=== PATIENT | male | born 1960 | race Caucasian/White ===

== ENCOUNTER 2020-07-17 10:29 | Inpatient (IN) ==
[2020-07-17] MEDS ORDERED: DEXAMETHASONE SOD INJ 10 MG/ML VIAL IV ONE (10:49)
--- NOTE | 2020-07-17 10:54 | Emergency Department Note ---
History of Present Illness General Chief complaint: Shortness of Breath/Dyspnea Stated complaint: COVID+ SHORTNESS OF BREATH Time Seen by Provider: 07/17/20 10:34 Source: patient History of Present Illness Provider complaint: Shortness of breath Onset (ago): day(s) 2 Location: chest Severity: severe Pain Consistency: + constant Quality: + other (Difficulty breathing) Exacerbated By: + other (Any exertion) Associated symptoms: + cough; no chest pain, no fever/chills and no nausea/vomiting This is a 59-year-old male who presents with shortness of breath for the past 2 days. The patient was diagnosed with COVID-19 last week. He has had a cough and diarrhea and malaise. 2 days ago he became short of breath. He states it is worse with any exertion. He rates his shortness of breath is severe. He denies any associated chest discomfort or pain. He does not smoke. He has no loss of taste or smell. He denies any fever or abdominal pain. He denies any lung problems. Home Medications Medication Instructions Recorded Confirmed Type ascorbic acid (vitamin C) [Vitamin 1,000 mg PO QAM 07/17/20 07/17/20 History C] aspirin [Aspir-81] 162 mg PO UD 07/17/20 07/17/20 History azithromycin [Zithromax Z-Ketan] 250 mg PO UD 07/17/20 07/17/20 History cholecalciferol (vitamin D3) 10 mcg PO QAM 07/17/20 07/17/20 History [Vitamin D3] echinacea 400 mg PO QAM 07/17/20 07/17/20 History furosemide 40 mg PO DAILY PRN 07/17/20 07/17/20 History glimepiride 4 mg PO QAM 07/17/20 07/17/20 History loperamide 2 mg PO Q6H PRN 07/17/20 07/17/20 History losartan 50 mg PO DAILY 07/17/20 07/17/20 History metformin 1,000 mg PO BID 07/17/20 07/17/20 History prednisone 10 mg PO .TAPER 07/17/20 07/17/20 History tamsulosin [Flomax] 0.4 mg PO QAM 07/17/20 07/17/20 History zinc 50 mg PO QAM 07/17/20 07/17/20 History Allergies Allergy/AdvReac Type Severity Reaction Status Date / Time No Known Allergies Allergy Unverified 07/17/20 11:54 Past Med/Surg History Medical History BPH (benign prostatic hyperplasia) Diastolic dysfunction DM type 2 (diabetes mellitus, type 2) HTN (hypertension) Mild aortic valve regurgitation Mild tricuspid regurgitation Family History Father Diabetes Mother Diabetes Social History Smoking Status: Never smoker Hx Alcohol Use: Yes Alcohol type: beer Hx Substance Use: No Preferred Language: Dutch Communication Ability: Effective Padded Products Finisher Required: No Beliefs That Will Affect Care: None Current Living Situation: Spouse and Family Other Information That Helps Us Care for You: No Feels Safe at Home: Yes Safety Concerns: Feels Safe At This Time Assistive Devices: None Review of Systems See HPI for pertinent positives & negatives. and A total of 10 systems reviewed and were otherwise negative Physical Exam Vital Signs Vital Signs - 24 hr 07/17/20 10:40 07/17/20 10:44 07/17/20 11:00 Temperature Temperature Source Pulse Rate 107 H 103 H 99 H Pulse Rate from SpO2 Sensor 106 H 102 H 100 H Respiratory Rate 20 22 31 H Blood Pressure 176/89 H 156/90 H Blood Pressure Mean 123 116 Pulse Oximetry 54 L 92 Oxygen Delivery Method Room Air Nasal Cannula Oxygen Flow Rate 6 Sepsis Recent Fever Within 48 Hours Sepsis New/Unexplained Change in Mental Status Sepsis Action Taken by Nursing 07/17/20 11:01 07/17/20 11:30 07/17/20 11:31 Temperature Temperature Source Pulse Rate 98 H 98 H 102 H Pulse Rate from SpO2 Sensor 99 H 98 H 101 H Respiratory Rate 30 H 29 H 35 H Blood Pressure 156/91 H Blood Pressure Mean 114 Pulse Oximetry 93 91 93 Oxygen Delivery Method Oxygen Flow Rate 6 6 6 Sepsis Recent Fever Within 48 Hours Sepsis New/Unexplained Change in Mental Status Sepsis Action Taken by Nursing 07/17/20 11:44 07/17/20 12:00 07/17/20 12:01 Temperature 37.2 C Temperature Source Oral Pulse Rate 101 H 100 H Pulse Rate from SpO2 Sensor 101 H 103 H Respiratory Rate 32 H 32 H Blood Pressure 161/89 H Blood Pressure Mean 104 Pulse Oximetry 54 L 89 L 89 L Oxygen Delivery Method Room Air Nasal Cannula Oxygen Flow Rate 6 6 Sepsis Recent Fever Within 48 Hours No Sepsis New/Unexplained Change in Mental Status N/A Sepsis Action Taken by Nursing No Action Required 07/17/20 12:30 07/17/20 12:32 Temperature Temperature Source Pulse Rate 99 H 100 H Pulse Rate from SpO2 Sensor 99 H 102 H Respiratory Rate 25 H 36 H Blood Pressure 158/91 H Blood Pressure Mean 100 Pulse Oximetry 91 89 L Oxygen Delivery Method Nasal Cannula Nasal Cannula Oxygen Flow Rate 6 6 Sepsis Recent Fever Within 48 Hours Sepsis New/Unexplained Change in Mental Status Sepsis Action Taken by Nursing Constitutional: Vital signs reviewed. Frequently clearing his throat. No accessory muscle use. Hypoxemic. Eyes: Pupils are equal round reactive to light. Conjunctiva are noninjected. ENT: Pharynx is clear without erythema or exudate. Mucous membranes are moist. Neck supple without meningeal signs. Respiratory: Scattered rhonchi bilaterally. Breath sounds are equal bilaterally. Cardiovascular: Regular rate and rhythm. No rubs or gallops. GI: Soft, nondistended and nontender. Bowel sounds are present. Musculoskeletal: No peripheral edema. No lower extremity tenderness. Integumentary: No cyanosis. or jaundice. Neurological: The patient is awake and alert. No focal deficits. Psychiatric: Normal affect. Not anxious appearing. Course Administered Medications Discontinued Medications Dexamethasone (Dexamethasone Sod Inj 10 Mg/Ml Vial) 6 mg IV NOW ONE Stop: 07/17/20 10:50 Last Admin: 07/17/20 11:50 Dose: 6 mg Documented by: [id number] Ioversol (Optiray 320 125ml) 120 ml IV ONCE ONE Stop: 07/17/20 14:24 Last Admin: 07/17/20 14:24 Dose: 120 ml Documented by: [id number] Critical Care Time Critical Care Time: Yes Total Critical Care Time: 40 I have personally spent approximately 40 minutes of critical care time in the direct management of this patient. This includes bedside care, interpretation of diagnostic studies, and testing, discussion with consultants, patient, and family members, and other required patient management activities. These minutes are in excess of all separately billable procedures. Medical Decision Making Differential Diagnosis COVID-19, pneumonia, ARDS, pulmonary embolism, hypoxemia Medical Records Attestation: I reviewed the patient's medical records. I did perform a limited focused review of portions of the patient's old chart on the electronic medical record. The patient has had no prior visits to this hospital. Home Medications Current Medication List: was personally reviewed by me Laboratory Data Attestation: I reviewed the patient's lab results. Result diagrams: 07/17/20 11:12 07/17/20 12:34 Lab Results 07/17/20 07/17/20 07/17/20 Range/Units 11:12 11:12 11:12 WBC 11.10 H (4.8-10.8) K/uL RBC 4.84 (4.7-6.1) M/uL Hgb 15.4 (14.0-18.0) g/dL Hct 45.6 (42-52) % MCV 94.2 (80-100) fL MCH 31.8 (25-34) pg MCHC 33.8 (32-36) g/dL RDW Std Deviation 44.6 (36.4-46.3) fL RDW Coeff of Angy 12.9 (11.5-14.5) % Plt Count 354 (130-400) K/uL MPV 9.1 (7.4-10.4) fL Immature Gran % (Auto) 1.9 % Neut % (Auto) 84.7 % Lymph % (Auto) 8.9 % Hamilton % (Auto) 4.1 % Eos % (Auto) 0.1 % Baso % (Auto) 0.3 % Neut # (Auto) 9.40 H (1.4-6.5) K/uL Lymph # (Auto) 0.99 L (1.2-3.4) K/uL Hamilton # (Auto) 0.46 (0.11-0.59) K/uL Eos # (Auto) 0.01 (0-0.5) K/uL Baso # (Auto) 0.03 (0-0.2) K/uL Immature Gran # (Auto) 0.21 H (0.00-0.02) K/uL Absolute Nucleated RBC 0.08 H (0-0) K/uL Nucleated RBC % (auto) 0.7 % PT INR APTT PTT Ratio D-Dimer ABG pH (7.35-7.45) ABG pCO2 (35-46) mmHg ABG pO2 (80-95) mmHg ABG HCO3 (19-24) mmol/L ABG O2 Saturation (90-95) % ABG Base Excess (-9-1.8) mEq/L Herbie Test (Pos) Barometric Pressure mm/Hg Oxygen Given Sodium Cancelled Potassium Cancelled Chloride Cancelled Carbon Dioxide Cancelled Anion Gap Cancelled BUN Cancelled Creatinine Cancelled Est Cr Clr Drug Dosing Cancelled Est GFR ( Amer) Cancelled Est GFR (Non-Af Amer) Cancelled BUN/Creatinine Ratio Cancelled Glucose Cancelled Calcium Cancelled Ferritin (8-388) ng/ml Total Bilirubin Cancelled AST Cancelled ALT Cancelled Alkaline Phosphatase Cancelled Lactate Dehydrogenase Total Creatine Kinase (39-308) U/L Troponin I Cancelled C-Reactive Protein (0-0.29) mg/dl Total Protein Cancelled Albumin Cancelled Globulin Cancelled Albumin/Globulin Ratio Cancelled Procalcitonin Cancelled 07/17/20 07/17/20 07/17/20 Range/Units 11:12 11:12 12:34 WBC (4.8-10.8) K/uL RBC (4.7-6.1) M/uL Hgb (14.0-18.0) g/dL Hct (42-52) % MCV (80-100) fL MCH (25-34) pg MCHC (32-36) g/dL RDW Std Deviation (36.4-46.3) fL RDW Coeff of Angy (11.5-14.5) % Plt Count (130-400) K/uL MPV (7.4-10.4) fL Immature Gran % (Auto) % Neut % (Auto) % Lymph % (Auto) % Hamilton % (Auto) % Eos % (Auto) % Baso % (Auto) % Neut # (Auto) (1.4-6.5) K/uL Lymph # (Auto) (1.2-3.4) K/uL Hamilton # (Auto) (0.11-0.59) K/uL Eos # (Auto) (0-0.5) K/uL Baso # (Auto) (0-0.2) K/uL Immature Gran # (Auto) (0.00-0.02) K/uL Absolute Nucleated RBC (0-0) K/uL Nucleated RBC % (auto) % PT Cancelled 12.1 H INR Cancelled 1.2 H APTT Cancelled 25.8 PTT Ratio Cancelled 0.9 D-Dimer Cancelled 25844 H* ABG pH (7.35-7.45) ABG pCO2 (35-46) mmHg ABG pO2 (80-95) mmHg ABG HCO3 (19-24) mmol/L ABG O2 Saturation (90-95) % ABG Base Excess (-9-1.8) mEq/L Herbie Test (Pos) Barometric Pressure mm/Hg Oxygen Given Sodium Potassium Chloride Carbon Dioxide Anion Gap BUN Creatinine Est Cr Clr Drug Dosing Est GFR ( Amer) Est GFR (Non-Af Amer) BUN/Creatinine Ratio Glucose Calcium Ferritin (8-388) ng/ml Total Bilirubin AST ALT Alkaline Phosphatase Lactate Dehydrogenase Cancelled Total Creatine Kinase (39-308) U/L Troponin I C-Reactive Protein (0-0.29) mg/dl Total Protein Albumin Globulin Albumin/Globulin Ratio Procalcitonin 07/17/20 07/17/20 07/17/20 Range/Units 12:34 12:34 12:34 WBC (4.8-10.8) K/uL RBC (4.7-6.1) M/uL Hgb (14.0-18.0) g/dL Hct (42-52) % MCV (80-100) fL MCH (25-34) pg MCHC (32-36) g/dL RDW Std Deviation (36.4-46.3) fL RDW Coeff of Angy (11.5-14.5) % Plt Count (130-400) K/uL MPV (7.4-10.4) fL Immature Gran % (Auto) % Neut % (Auto) % Lymph % (Auto) % Hamilton % (Auto) % Eos % (Auto) % Baso % (Auto) % Neut # (Auto) (1.4-6.5) K/uL Lymph # (Auto) (1.2-3.4) K/uL Hamilton # (Auto) (0.11-0.59) K/uL Eos # (Auto) (0-0.5) K/uL Baso # (Auto) (0-0.2) K/uL Immature Gran # (Auto) (0.00-0.02) K/uL Absolute Nucleated RBC (0-0) K/uL Nucleated RBC % (auto) % PT INR APTT PTT Ratio D-Dimer ABG pH (7.35-7.45) ABG pCO2 (35-46) mmHg ABG pO2 (80-95) mmHg ABG HCO3 (19-24) mmol/L ABG O2 Saturation (90-95) % ABG Base Excess (-9-1.8) mEq/L Herbie Test (Pos) Barometric Pressure mm/Hg Oxygen Given Sodium 135 L Potassium 4.0 Chloride 105 Carbon Dioxide 19 L Anion Gap 12.0 H BUN 19 H Creatinine 0.60 Est Cr Clr Drug Dosing Not Reportable Est GFR ( Amer) 125.8 Est GFR (Non-Af Amer) 108.5 BUN/Creatinine Ratio 31.0 H Glucose 300 H Calcium 8.1 L Ferritin 894.7 H (8-388) ng/ml Total Bilirubin 0.4 AST 23 ALT 22 Alkaline Phosphatase 61 Lactate Dehydrogenase 601 H Total Creatine Kinase 48 (39-308) U/L Troponin I < 0.015 C-Reactive Protein 16.80 H (0-0.29) mg/dl Total Protein 7.4 Albumin 2.3 L Globulin 5.1 H Albumin/Globulin Ratio 0.4 L Procalcitonin 0.06 07/17/ Range/Units 12:34 WBC (4.8-10.8) K/uL RBC (4.7-6.1) M/uL Hgb (14.0-18.0) g/dL Hct (42-52) % MCV (80-100) fL MCH (25-34) pg MCHC (32-36) g/dL RDW Std Deviation (36.4-46.3) fL RDW Coeff of Angy (11.5-14.5) % Plt Count (130-400) K/uL MPV (7.4-10.4) fL Immature Gran % (Auto) % Neut % (Auto) % Lymph % (Auto) % Hamilton % (Auto) % Eos % (Auto) % Baso % (Auto) % Neut # (Auto) (1.4-6.5) K/uL Lymph # (Auto) (1.2-3.4) K/uL Hamilton # (Auto) (0.11-0.59) K/uL Eos # (Auto) (0-0.5) K/uL Baso # (Auto) (0-0.2) K/uL Immature Gran # (Auto) (0.00-0.02) K/uL Absolute Nucleated RBC (0-0) K/uL Nucleated RBC % (auto) % PT INR APTT PTT Ratio D-Dimer ABG pH 7.46 H (7.35-7.45) ABG pCO2 29 L (35-46) mmHg ABG pO2 56 L (80-95) mmHg ABG HCO3 20 (19-24) mmol/L ABG O2 Saturation 89.0 L (90-95) % ABG Base Excess -2.2 (-9-1.8) mEq/L Herbie Test Pos (Pos) Barometric Pressure 733.8 mm/Hg Oxygen Given 6L Sodium Potassium Chloride Carbon Dioxide Anion Gap BUN Creatinine Est Cr Clr Drug Dosing Est GFR ( Amer) Est GFR (Non-Af Amer) BUN/Creatinine Ratio Glucose Calcium Ferritin (8-388) ng/ml Total Bilirubin AST ALT Alkaline Phosphatase Lactate Dehydrogenase Total Creatine Kinase (39-308) U/L Troponin I C-Reactive Protein (0-0.29) mg/dl Total Protein Albumin Globulin Albumin/Globulin Ratio Procalcitonin Imaging Data Radiologist's Impression: XR chest 1V portable CLINICAL HISTORY: Difficulty breathing sx c/w COVID-19 COMPARISON STUDY: No previous studies for comparison. FINDINGS: The heart is the upper limits of normal in size. There are multifocal bilateral nodular airspace opacities consistent with a multifocal pneumonia. There are no significant pleural effusions. Clinical and radiographic follow-up is recommended.[ IMPRESSION: Extensive bilateral multifocal nodular airspace opacities consistent with a multifocal pneumonia. Clinical and radiographic follow-up is recommended. ACT 112: Negative or not required by law. Electronically signed by: Danielito Will M.D. 07/17/2020 11:28 AM ECG Data Attestation: I personally reviewed and interpreted this ECG as follows: Indication: + SOB/dyspnea Rate (beats per minute): 100 Rhythm: + normal sinus ECG ST segments: no ST elevation ECG Findings: + Other (Limited interpretation due to baseline motion artifact); no PVCs MDM Narrative I did evaluate the patient as noted above. The patient has COVID-19 and was diagnosed a week ago. Over the past 2 days he has been more short of breath. On examination he has some scattered rhonchi but is otherwise clear. He is very hypoxic with an O2 sat in the 60s on room air. He was placed on supplemental oxygen with a pulse ox of 93 on 6 L. He did state he felt better. He was placed in a negative pressure isolation room. IV access was established. I did place an order for continuous cardiac monitoring. The monitor showed normal sinus rhythm at a rate of 99 bpm. I did order and personally review the patient's 12-lead EKG as described above. He has no acute ischemic changes. I did order and personally reviewed the images of the patient's chest x-ray as described above. He has changes consistent with Covid pneumonia. I did treat the patient with Decadron 6 mg IV. I did order and review the patient's blood work as noted in the electronic medical record. His white blood cell count is slightly elevated. ABG shows hypoxemia. He was placed on high flow nasal cannula. Glucose is elevated as well. I did discuss case with the hospitalist and supportive employment case manager. The patient's D-dimer came back over 30,000. The inpatient team ordered a CT angiogram which demonstrated multiple pulmonary emboli. Impression & Plan Respiratory failure, Pulmonary emboli, Pneumonia due to 2019 novel coronavirus, Acute hyperglycemia Discharge Plan Visit Data Chief Complaint: Shortness of Breath/Dyspnea Stated Complaint: COVID+ SHORTNESS OF BREATH ED Provider: Ortiz Israel Discharge Problem: Respiratory failure, Pulmonary emboli, Pneumonia due to 2019 novel coronavirus, Acute hyperglycemia Patient Disposition: Admitted As Inpatient Discharge Instructions Interventions: ED Discharge Assessment Last Done: 07/17/20 14:05
--- NOTE | 2020-07-17 11:29 | XRay Report ---
XR chest 1V portable CLINICAL HISTORY: Difficulty breathing sx c/w COVID-19 COMPARISON STUDY: No previous studies for comparison. FINDINGS: The heart is the upper limits of normal in size. There are multifocal bilateral nodular air space opacities consistent with a multifocal pneumonia. There are no significant pleural effusions. C linical and radiographic follow-up is recommended.[ IMPRESSION: Extensive bilateral multifocal nodular airspace opacities consistent with a multifocal pn eumonia. Clinical and radiographic follow-up is recommended. ACT 112: Negative or not required by law. Electronically signed by: Danielito Will M.D. 07/17/2020 11:28 AM
[2020-07-17 11:45] LABS: Basophils # (auto) 0.03 K/uL (0-0.2); Basophils % (auto) 0.3 %; Eosinophils # (auto) 0.01 K/uL (0-0.5); Eosinophils % (auto) 0.1 %; Hematocrit (blood only) 45.6 % (42-52); Hemoglobin 15.4 g/dL (14.0-18.0); Immature Granulocytes # (auto) 0.21 K/uL (0.00-0.02); Immature Granulocytes % (auto) 1.9 %; Lymphocytes # (auto) 0.99 K/uL (1.2-3.4); Lymphocytes % (auto) 8.9 %; Mean Corpuscular Hemoglobin 31.8 pg (25-34); Mean Corpuscular Hgb Conc 33.8 g/dL (32-36); Mean Corpuscular Volume 94.2 fL (80-100); Mean Platelet Volume 9.1 fL (7.4-10.4); Monocytes # (auto) 0.46 K/uL (0.11-0.59); Monocytes % (auto) 4.1 %; Neutrophils % (auto) 84.7 %; Nucleated RBC # (auto) 0.08 K/uL (0-0); Nucleated RBC % (auto) 0.7 %; Platelet Count 354 K/uL (130-400); RDW Coefficient of Variation 12.9 % (11.5-14.5); RDW Standard Deviation 44.6 fL (36.4-46.3); Red Blood Count 4.84 M/uL (4.7-6.1)
[2020-07-17 12:51] LABS: Allen Test Pos (Pos); Base Excess ABG -2.2 mEq/L (-9-1.8); HCO3 ABG 20 mmol/L (19-24); PCO2 ABG 29 mmHg (35-46); PO2 ABG 56 mmHg (80-95); pH ABG 7.46 (7.35-7.45)
[2020-07-17 13:07] LABS: Alanine Aminotransferase 22 U/L (12-78); Albumin Level 2.3 gm/dl (3.4-5.0); Aspartate Aminotransferase 23 U/L (15-37); Blood Urea Nitrogen 19 mg/dl (7-18); Calcium 8.1 mg/dl (8.5-10.1); Carbon Dioxide 19 mmol/L (21-32); Chloride 105 mmol/L (98-107); Est GFR (African American) 125.8; Est GFR (Non-African American) 108.5; Glucose 300 mg/dl (70-99); Sodium 135 mmol/L (136-145)
[2020-07-17 13:08] LABS: INR 1.2 (0.9-1.1); Partial Thromboplastin Ratio 0.9; Partial Thromboplastin Time 25.8 Seconds (21.0-31.0); Prothrombin Time 12.1 Seconds (9.0-12.0)
[2020-07-17 13:12] LABS: Albumin Globulin Ratio 0.4 (0.9-2); Alkaline Phosphatase 61 U/L (45-117); Bilirubin,Total 0.4 mg/dl (0.2-1); Creatine Kinase 48 U/L (39-308); Ferritin 894.7 ng/ml (8-388); Globulin 5.1 gm/dl (2.5-4.0); Total Protein 7.4 gm/dl (6.4-8.2); Troponin I < 0.015 ng/ml (0-0.045)
[2020-07-17 13:16] LABS: D Dimer 30300 ug/L FEU (0-500)
--- NOTE | 2020-07-17 13:54 | History & Physical Report ---
Date of Service July 17, 2020 Assessment & Plan (1) Pneumonia due to COVID-19 virus: (2) Acute respiratory failure with hypoxia: -Admit to telemetry -Patient presenting from home with reports of worsening shortness of breath x 9 days. Diagnosed COVID-19 on 07/13 -In the ED, saturating 54% on room air, currently requiring 6 L of oxygen via nasal cannula to maintain saturation 93% -CXR shows multifocal pneumonia -IV dexamethasone, IV remdesivir -Patient completed course of azithromycin as an outpatient, will start empiric p.o. doxycycline and IV ceftriaxone. Noted normal procalcitonin 0.06 -Follow blood cultures -D-dimer 30,000 -CTA chest, BL LE Dopplers (3) Prolonged QT interval: -QTC 528 -? Due to recent use of p.o. azithromycin -K+ 4.0, check Mg+ -Avoid QTC prolonging agents -Daily EKG (4) Diastolic dysfunction: -Echo 2016: Grade 1 diastolic dysfunction -Patient has some mild edema on exam, will give Lasix 20mg IV (5) DM type 2 (diabetes mellitus, type 2): -Hgb A1c 10.4 10/2019 -Hold oral agents, utilize Lantus and NovoLog per protocol while hospitalized -Given uncontrolled A1c and use of IV steroids, glycemic pharmacy consulted (6) HTN (hypertension): -BP controlled, continue losartan (7) DVT prophylaxis: -SQ Lovenox History of Present Illness Chief Complaint: Shortness of breath Primary Care Provider: Dimitri Lu MD 59-year-old male with PMH DM type II, HTN, diastolic dysfunction, and other problems to below who presents to the ED for evaluation of shortness of breath. Patient tested positive for COVID-19 on 07/13. He was prescribed tapering dose of prednisone and Z-Ketan. Patient reports progressive worsening shortness of breath. He had shortness of breath with minimal exertion this morning. He reports a nonproductive cough. Patient had diarrhea at the beginning of his illness, he reports that has now resolved. Appetite has been poor at times. Denies nausea, vomiting, abdominal pain. No fevers or chills. Denies chest pain and palpitations. No lightheadedness, dizziness, diaphoresis, syncopal events. No urinary symptoms. In the ED, patient was saturating 54% on room air, currently requiring 6 L of oxygen via nasal cannula to maintain saturation of 93%. CXR shows multifocal pneumonia. Patient was given dexamethasone 6 mg IV. Allergies Allergy/AdvReac Type Severity Reaction Status Date / Time No Known Allergies Allergy Unverified 07/17/20 11:54 Home Medications Medication Instructions Recorded Confirmed Type ascorbic acid (vitamin C) [Vitamin 1,000 mg PO QAM 07/17/20 07/17/20 History C] aspirin [Aspir-81] 162 mg PO UD 07/17/20 07/17/20 History azithromycin [Zithromax Z-Ketan] 250 mg PO UD 07/17/20 07/17/20 History cholecalciferol (vitamin D3) 10 mcg PO QAM 07/17/20 07/17/20 History [Vitamin D3] echinacea 400 mg PO QAM 07/17/20 07/17/20 History furosemide 40 mg PO DAILY PRN 07/17/20 07/17/20 History glimepiride 4 mg PO QAM 07/17/20 07/17/20 History loperamide 2 mg PO Q6H PRN 07/17/20 07/17/20 History losartan 50 mg PO DAILY 07/17/20 07/17/20 History metformin 1,000 mg PO BID 07/17/20 07/17/20 History prednisone 10 mg PO .TAPER 07/17/20 07/17/20 History tamsulosin [Flomax] 0.4 mg PO QAM 07/17/20 07/17/20 History zinc 50 mg PO QAM 07/17/20 07/17/20 History Past Med/Surg History Medical History BPH (benign prostatic hyperplasia) Diastolic dysfunction DM type 2 (diabetes mellitus, type 2) HTN (hypertension) Mild aortic valve regurgitation Mild tricuspid regurgitation Family History Father Diabetes Mother Diabetes Social History Smoking Status: Never smoker Hx Alcohol Use: No Feels Safe at Home: Yes Review of Systems Review of Systems: ROS per HPI, all other systems reviewed and negative Physical Exam Constitutional: WD/WN, vitals as above + obese; no acute distress Eyes: PERRL, conjunctivae normal, anicteric sclerae ENMT: external ear and nose normal, oropharynx normal Respiratory: normal respiratory effort; no respiratory distress Auscultation: + crackles (Faint, right mid and lower lung díaz) Cardiovascular: Rate/Rhythm: regular rate and regular rhythm Vessels: normal peripheral pulses Extremities: + edema (Trace edema BLE) Gastrointestinal (Abdomen): normal bowel sounds, soft, nontender, no hepatosplenomegaly Musculoskeletal: no cyanosis or clubbing, extremities motor strength 5/5 Skin: no rashes, warm and dry Neurologic: PERRL, EOMI, accommodation nl, no face palsy, no dysarthria Psychiatric: A+Ox3, euthymic affect Results & Data Results & Data ([facility]) Vital Signs (Past 12 Hours) Vital Signs Temp Pulse Resp BP Pulse Ox 07/17/20 13:31 144/86 H 93 07/17/20 13:30 90 07/17/20 13:00 88 L 07/17/20 12:32 100 H 36 H 158/91 H 89 L 07/17/20 12:30 99 H 25 H 91 07/17/20 12:01 100 H 32 H 89 L 07/17/20 12:00 101 H 32 H 161/89 H 89 L 07/17/20 11:44 37.2 C 54 L 07/17/20 11:31 102 H 35 H 93 07/17/20 11:30 98 H 29 H 156/91 H 91 07/17/20 11:01 98 H 30 H 93 07/17/20 11:00 99 H 31 H 156/90 H 92 07/17/20 10:44 103 H 22 07/17/20 10:40 107 H 20 176/89 H 54 L Laboratory Results Short CBC 07/17/20 Range/Units 11:12 WBC 11.10 H (4.8-10.8) K/uL Hgb 15.4 (14.0-18.0) g/dL Hct 45.6 (42-52) % Plt Count 354 (130-400) K/uL BMP 07/17/20 07/17/20 11:12 12:34 Sodium Cancelled 135 L Potassium Cancelled 4.0 Chloride Cancelled 105 Carbon Dioxide Cancelled 19 L BUN Cancelled 19 H Creatinine Cancelled 0.60 Glucose Cancelled 300 H Calcium Cancelled 8.1 L Cardiac Enzymes 07/17/20 07/17/20 Range/Units 11:12 12:34 Total Creatine Kinase 48 (39-308) U/L Troponin I Cancelled < 0.015 Liver Function 07/17/20 07/17/20 Range/Units 11:12 12:34 Total Bilirubin Cancelled 0.4 AST Cancelled 23 ALT Cancelled 22 Alkaline Phosphatase Cancelled 61 Albumin Cancelled 2.3 L Diagnostic Findings CXR IMPRESSION: Extensive bilateral multifocal nodular airspace opacities consistent with a multifocal pneumonia. Clinical and radiographic follow-up is recommended. Code Status & VTE Plan VTE Prophylaxis Plan VTE Prophylaxis will be ordered: Yes Supervising Physician Co-Signing Physician Notes Patient is a 59-year-old man with history of diabetes mellitus, hypertension, diastolic dysfunction and other medical problems presents with history of worsening shortness of breath with minimal exertion associated with nonproductive cough. Also states having diarrhea few days ago which currently resolved. He was tested positive for Covid 4 days ago. Currently on prednisone and Z-Ketan. Please review HPI for complete details of presentation. He denies any chest pain, nausea, vomiting, dizziness, abdominal pain currently. He was found to be hypoxic at 54% on room air while in ED. D-dimer is elevated at 30,000, chest x-ray suggestive of extensive bilateral nodular airspace opacities consistent with multifocal pneumonia. Normal procalcitonin. Mild metabolic acidosis noted on labs. On exam patient is obese, no apparent distress, normocephalic atraumatic, urine [place], lungs are clear to auscultation, normal breath sounds, S1-S2, no murmur, trace pedal edema, abdomen soft, nontender, normal bowel sounds, alert, awake, oriented, no focal neurologic deficits. Patient is admitted for management of acute respiratory failure with hypoxia secondary to multifocal Covid pneumonia. Will start on remdesivir, dexamethasone, empiric antibiotics with doxycycline and Rocephin. Given elevated D-dimer, will check CTA and venous Doppler. Continue supplemental support with oxygen, albuterol as needed. Consider pulmonology evaluation if necessary. Will consider stool studies if recurrence of diarrhea. Currently patient not interested in cortisone plasma transfusion, provided information for the same. Agree with avoiding QTC prolonging meds given prolonged QTC at 528. Started on insulin therapy for diabetes management while hospitalized. I personally reviewed the record. Patient is interviewed and examined at bedside. Patient's care is coordinated with Zuly Bhand[facility] [employer]. Please refer to the documentation above for details of patient's presentation and for discussion of other issues.
[2020-07-17] MEDS ORDERED: OPTIRAY 320 125ml IV ONE (14:23)
--- NOTE | 2020-07-17 14:39 | CT Scan Report ---
CT ANGIOGRAM OF THE CHEST CLINICAL HISTORY: Dyspnea. Covid. COMPARISON STUDY: Chest x-ray dated 07/17/2020. TECHNIQUE: Following the IV administration of 120 cc of Optiray 320, CT angiogram of the chest was pe rformed from the upper abdomen to the thoracic inlet utilizing the pulmonary embolus protocol. Images are reviewed in the axial, sagittal, and coronal planes. 3-D MIPS images are created and assessed. I V contrast was administered without complication. A dose lowering technique was utilized adhering to the principles of ALARA. CT DOSE: 611.92 mGycm FINDINGS: Thyroid: Imaged portions of the thyroid gland are normal in size and attenuation. Thoracic aorta: The thoracic aorta is normal in caliber and demonstrates standard 3-vessel arch anato my. No dissection is seen. Pulmonary vasculature: The pulmonary trunk is dilated, measuring 3.6 cm in transverse diameter. This suggests pulmonary artery hypertension. There are right-sided pulmonary emboli. There is thrombus wit hin the right middle and right lower lobe pulmonary arteries which extends into segmental and subsegm ental branches. Thrombus is also seen within segmental and subsegmental branches in the right upper l obe. Heart: The heart is mildly enlarged and without pericardial effusion. Lungs and pleural spaces: The trachea and central airways are clear. There is extensive groundglass c onsolidation seen throughout both lungs with associated interstitial thickening. There is a trace rig ht pleural effusion. A large calcified granuloma is seen in the right middle lobe. Additional smaller calcific granulomas are observed. Mediastinum: There are numerous subcentimeter mediastinal lymph nodes. Kylah: Mildly enlarged hilar lymph nodes measure up to 11 mm in short axis. Axillae: There is no axillary lymphadenopathy. Upper abdomen: The liver is enlarged and severely steatotic. A small hiatal hernia is noted. There ar e calcified hepatic and splenic granulomas. Skeletal structures: No lytic or blastic bony lesions are seen. IMPRESSION: 1. Fairly extensive right-sided pulmonary emboli as above. 2. Extensive multifocal groundglass consolidation is above. The appearance is typical for pneumonia a nd radiographic follow-up to resolution is recommended. 3. Hepatomegaly and severe hepatic steatosis. 4. Additional findings as above. ACT 112: Negative or not required by law. Electronically signed by: Warren Jose M.D. 07/17/2020 2:37 PM
[2020-07-17] MEDS ORDERED: PNEUMOCOCCAL ADMINISTRATION CHARGE ONE (15:00)
[2020-07-17] MEDS ORDERED: ALBUTEROL HFA 8 GM INHALER INH PRN (15:00)
[2020-07-17] MEDS ORDERED: INFLUENZA VIRUS QUAD VACCINE 0.5 ML SYR IM ONE (15:00)
[2020-07-17] MEDS ORDERED: ACETAMINOPHEN 325 MG TAB PO PRN (15:00)
[2020-07-17] MEDS ORDERED: PNEUMOCOCCAL POLYSACCHARIDES 25 MCG/0.5 ML VIAL/SYR IM ONE (15:00)
[2020-07-17] MEDS ORDERED: FUROSEMIDE 40 MG/4 ML VIAL IV STA ×2 (15:00→16:54)
[2020-07-17] MEDS ORDERED: ENOXAPARIN 1 MG/KG SC SCH (15:00)
[2020-07-17] MEDS ORDERED: INFLUENZA ADMINISTRATION CHARGE ONE (15:00)
[2020-07-17] MEDS ORDERED: PHARMACY GLYCEMIC MGMT CONSULT PRN (15:21)
[2020-07-17] MEDS ORDERED: ENOXAPARIN 150 MG/ML SYR SQ SCH (15:30)
[2020-07-17] MEDS ORDERED: GLUCOSE 10 TABS/TUBE PO PRN (15:45)
[2020-07-17] MEDS ORDERED: CARBOHYDRATES FOR HYPOGLYCEMIA PO PRN (15:45)
[2020-07-17] MEDS ORDERED: GLUCAGON FOR INJ 1 MG VIAL IM PRN (15:45)
[2020-07-17] MEDS ORDERED: GLUCOSE 40% GEL 15 GM TUBE PO PRN (15:45)
[2020-07-17] MEDS ORDERED: DEXTROSE 50% 50 ML SYRINGE IV PRN (15:45)
[2020-07-17] MEDS ORDERED: INSULIN HUMAN REGULAR IV BOLUS 10 UNITS in SYRINGE 0 ML IV ONE (16:00)
[2020-07-17] MEDS ORDERED: INSULIN HUMAN NPH SC ONE (16:00)
[2020-07-17] MEDS ORDERED: DOXYCYCLINE HYCLATE 100 MG CAP PO SCH (16:00)
[2020-07-17] MEDS ORDERED: REMDESIVIR 200 MG in SODIUM CHLORIDE 0.9% 210 ML IV ONE (16:00)
[2020-07-17] MEDS ORDERED: INSULIN GLARGINE SOLOSTAR 100 UNITS/ML 3 ML PEN SC ONE (16:30)
[2020-07-17 16:35] LABS: Hematocrit (blood only) 41.9 % (42-52); Hemoglobin 14.2 g/dL (14.0-18.0); Mean Corpuscular Hemoglobin 32.1 pg (25-34); Mean Corpuscular Volume 94.6 fL (80-100); Mean Platelet Volume 8.9 fL (7.4-10.4); Nucleated RBC # (auto) 0.06 K/uL (0-0); Nucleated RBC % (auto) 0.7 %; Platelet Count 309 K/uL (130-400); RDW Coefficient of Variation 13.1 % (11.5-14.5); RDW Standard Deviation 45.4 fL (36.4-46.3); Red Blood Count 4.43 M/uL (4.7-6.1); White Blood Count 8.51 K/uL (4.8-10.8)
[2020-07-17 16:49] LABS: INR 1.1 (0.9-1.1); Partial Thromboplastin Ratio 0.9; Partial Thromboplastin Time 26.5 Seconds (21.0-31.0)
[2020-07-17] MEDS: SODIUM CHLORIDE 0.9% 10ML FLUSH IV SCH (16:49)
[2020-07-17 16:58] LABS: Mean Corpuscular Hgb Conc 33.9 g/dL (32-36)
[2020-07-17] MEDS ORDERED: cefTRIAXone SODIUM 2,000 MG in DEXTROSE 5% 50 ML IV SCH (17:00)
[2020-07-17 17:04] LABS: Basophils # (auto) 0.02 K/uL (0-0.2); Basophils % (auto) 0.2 %; Immature Granulocytes # (auto) 0.13 K/uL (0.00-0.02); Immature Granulocytes % (auto) 1.5 %; Lymphocytes # (auto) 0.92 K/uL (1.2-3.4); Lymphocytes % (auto) 10.8 %; Monocytes % (auto) 2.4 %; Neutrophils # (auto) 7.24 K/uL (1.4-6.5); Neutrophils % (auto) 85.1 %; Polychromasia 1+
--- NOTE | 2020-07-17 17:47 | Critical Care Consultation ---
Date of Consultation July 17, 2020 Assessment & Plan (1) Acute respiratory failure with hypoxia: (2) Pneumonia due to COVID-19 virus: (3) Pulmonary emboli: Impression: 59-year-old male with COVID-19 pneumonia and acute PE with progressive hypoxemic respiratory failure. Since being admitted to the hospital the patient is transition from 6 L nasal cannula to heated high flow and is cu rrently on 70% with 35 L/min. Despite this he states he feels relatively good. He is not hypotensive and not tachycardic. It is unclear how much of his hypoxemia is related to the PE and how much could be related to COVID-19 pneumonia. He was initiated on dexamethasone and remdesivir and just received a subcutaneous injection of Lovenox 1 jonathon per ke. Recommendations: 1. Acute PE: I had a long discussion with the patient regarding options at this point time. The PE certainly could be contributing to his hypoxemic respiratory failure and given the fact that he is clinically worsening with progressive oxygen requirements, it seems reasonable to be very aggressive in treating his PE. We discussed thrombolysis with its inherent risk of bleeding (about 5%) in an effort to try and improve his oxygenation. He is not hemodynamically unstable so does not meet criteria from that standpoint however I think it does warrant trying to improve his oxygenation index given the fact that he is trending in the wrong direction. Will use the 50 mg dose rather than the traditional 100 mg in an effort to try and decrease bleeding. Will consult pharmacy to determine timing of TPA given that he is just received a systemic bolus of Lovenox. Post chemical thrombolytic's orders will be ordered. Discussed with ICU nurse at the bedside. Will need to initiate heparin dosed based on 10 a levels once TPA infusion is completed 2. COVID-19 pneumonia: Continue remdesivir and dexamethasone per protocol. 3. Hypoxemic respiratory failure: Continue supplemental oxygen titrated to keep saturations at or above 85 %. Would consider self pronating if the patient's oxygenation index should fail to improve. Could also consider BiPAP. Hopefully the patient can avoid intubation mechanical ventilation. History of Present Illness Attending Physician: Jac Macedo MD History of Present Illness Asked by hospitalist to evaluate this patient with hypoxemic respiratory failure due to COVID-19 pneumonia as well as acute pulmonary embolism. History is obtained from discussion with the patient as well as review of the electronic medical record. The patient is a 59-year-old morbidly obese male with comorbid conditions including diabetes hypertension diastolic dysfunction who presented to the emergency room today with shortness of breath. He was tested for COVID-19 on July 13 and found to be positive. For some reason he was prescribed prednisone and azithromycin in the outpatient setting despite the fact the prednisone is only indicated to be used in patients with moderate to severe disease and hypoxemia. The patient had progressive shortness of breath with a nonproductive cough and was brought to the emergency room where he was found to be hypoxemic in the 50s. He was placed on 6 L of oxygen via nasal cannula with initial improvement in his oxygen saturations. A D-dimer was markedly elevated and he had a CT scan performed which revealed right-sided thromboembolic disease. The patient is never been hypotensive and denies any syncope or pr esyncope. Allergies Allergy/AdvReac Type Severity Reaction Status Date / Time No Known Allergies Allergy Unverified 07/17/20 11:54 Home Medications Medication Instructions Recorded Confirmed Type ascorbic acid (vitamin C) [Vitamin 1,000 mg PO QAM 07/17/20 07/17/20 History C] aspirin [Aspir-81] 162 mg PO UD 07/17/20 07/17/20 History azithromycin [Zithromax Z-Ketan] 250 mg PO UD 07/17/20 07/17/20 History cholecalciferol (vitamin D3) 10 mcg PO QAM 07/17/20 07/17/20 History [Vitamin D3] echinacea 400 mg PO QAM 07/17/20 07/17/20 History furosemide 40 mg PO DAILY PRN 07/17/20 07/17/20 History glimepiride 4 mg PO QAM 07/17/20 07/17/20 History loperamide 2 mg PO Q6H PRN 07/17/20 07/17/20 History losartan 50 mg PO DAILY 07/17/20 07/17/20 History metformin 1,000 mg PO BID 07/17/20 07/17/20 History prednisone 10 mg PO .TAPER 07/17/20 07/17/20 History tamsulosin [Flomax] 0.4 mg PO QAM 07/17/20 07/17/20 History zinc 50 mg PO QAM 07/17/20 07/17/20 History Patient History Medical History BPH (benign prostatic hyperplasia) Diastolic dysfunction DM type 2 (diabetes mellitus, type 2) HTN (hypertension) Mild aortic valve regurgitation Mild tricuspid regurgitation Family History Father Diabetes Mother Diabetes Social History Smoking Status: Never smoker Hx Alcohol Use: Yes Alcohol type: beer Hx Substance Use: No Preferred Language: Luxembourgish Communication Ability: 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 I have no changes Physical Exam Constitutional: WD/WN, vitals as above + obese; no acute distress Eyes: PERRL, conjunctivae normal, anicteric sclerae ENMT: external ear and nose normal, oropharynx normal Respiratory: normal respiratory effort; no respiratory distress Auscultation: + crackles (Faint, right mid and lower lung díaz) Cardiovascular: Rate/Rhythm: regular rate and regular rhythm Vessels: normal peripheral pulses Extremities: + edema (Trace edema BLE) Gastrointestinal (Abdomen): normal bowel sounds, soft, nontender, no hepatosplenomegaly Musculoskeletal: no cyanosis or clubbing, extremities motor strength 5/5 Skin: no rashes, warm and dry Neurologic: PERRL, EOMI, accommodation nl, no face palsy, no dysarthria Psychiatric: A+Ox3, euthymic affect Results & Data Results & Data ([facility]) Vital Signs (Past 12 Hours) Vital Signs Temp Pulse Pulse Resp BP BP Pulse Ox 07/17/20 15:49 84 28 H 93 07/17/20 15:15 07/17/20 14:51 100 H 30 H 172/101 H 69 L 07/17/20 13:31 144/86 H 93 07/17/20 13:30 90 07/17/20 13:00 88 L 07/17/20 12:32 100 H 36 H 158/91 H 89 L 07/17/20 12:30 99 H 25 H 91 07/17/20 12:01 100 H 32 H 89 L 07/17/20 12:00 101 H 32 H 161/89 H 89 L 07/17/20 11:44 37.2 C 54 L 07/17/20 11:31 102 H 35 H 93 07/17/20 11:30 98 H 29 H 156/91 H 91 07/17/20 11:01 98 H 30 H 93 07/17/20 11:00 99 H 31 H 156/90 H 92 07/17/20 10:44 103 H 22 07/17/20 10:40 107 H 20 176/89 H 54 L Pulse Ox 07/17/20 15:49 07/17/20 15:15 88 L 07/17/20 14:51 07/17/20 13:31 07/17/20 13:30 07/17/20 13:00 07/17/20 12:32 07/17/20 12:30 07/17/20 12:01 07/17/20 12:00 07/17/20 11:44 07/17/20 11:31 07/17/20 11:30 07/17/20 11:01 07/17/20 11:00 07/17/20 10:44 07/17/20 10:40 Laboratory Results 07/17/20 16:15 07/17/20 12:34 Troponin was normal INR 1.1 PTT 26 Blood gas showed a pH 746 with a PCO2 of 29 and a PO2 of only 56 on supplemental oxygen Ferritin of 894 LDH of 601 C-reactive protein 16.8 Procalcitonin 0[address] angiogram was independently reviewed Coding Level of Care Code Critical Care 1st 30-74 mins Diagnoses Acute respiratory failure with hypoxia J96.01 Pneumonia due to COVID-19 virus U07.1; J12.89 Pulmonary emboli I26.99 Acute cor pulmonale presence: unspecified Chronicity: acute Pulmonary embolism type: unspecified Time Spent (min) 50 (1) Pulmonary emboli Acute cor pulmonale presence: unspecified Chronicity: acute Pulmonary embolism type: unspecified Qualified Code(s): I26.99 - Other pulmonary embolism without acute cor pulmonale
[2020-07-17] MEDS: INSULIN ASPART 100 UNITS/ML 3 ML PEN SC SCH ×3 (18:07→23:43)
[2020-07-17] MEDS ORDERED: DC ALL ANTICOAGULANTS PRN (18:52)
[2020-07-17 19:47] LABS: Hematocrit (blood only) 43.1 % (42-52); Hemoglobin 14.5 g/dL (14.0-18.0); Mean Corpuscular Hemoglobin 31.7 pg (25-34); Mean Corpuscular Hgb Conc 33.6 g/dL (32-36); Mean Corpuscular Volume 94.3 fL (80-100); Mean Platelet Volume 9.2 fL (7.4-10.4); Nucleated RBC # (auto) 0.11 K/uL (0-0); Nucleated RBC % (auto) 1.2 %; Platelet Count 312 K/uL (130-400); RDW Coefficient of Variation 13.1 % (11.5-14.5); RDW Standard Deviation 45.3 fL (36.4-46.3); Red Blood Count 4.57 M/uL (4.7-6.1); White Blood Count 8.84 K/uL (4.8-10.8)
[2020-07-17] MEDS: DOXYCYCLINE HYCLATE 100 MG CAP PO SCH (20:51)
[2020-07-17] MEDS ORDERED: ALBUT/IPRATROP 3MG/0.5MG NEB 3 ML VIAL NEB PRN (22:32)
[2020-07-18 00:26] LABS: INR 1.2 (0.9-1.1); Prothrombin Time 12.2 Seconds (9.0-12.0)
[2020-07-18 04:35] LABS: iSTAT Allen Test Pass; iSTAT Art Bld Gas pCO2 Correct 32 mmHg (35-46); iSTAT Art Bld Gas pH Corrected 7.461 (7.35-7.45); iSTAT Arterial Blood Gas HCO3 23 meg/L (19-24); iSTAT Arterial Blood Gas pCO2 32 mmHg (35-46); iSTAT Arterial Blood Gas pH 7.46 (7.35-7.45); iSTAT Arterial Blood Gas pO2 80 mmHg (80-95); iSTAT Arterial Blood Gas pO2 C 80; iSTAT Carbon Dioxide 24 mmol/L (24-31); iSTAT FiO2 80 %; iSTAT Hematocrit 40 % (42-52); iSTAT Hemoglobin 13.6 g/dl (14.0-18.0); iSTAT Potassium 3.6 mmol/L (3.3-5.0); iSTAT Site L Radial; iSTAT Sodium 138 mmol/L (135-144)
[2020-07-18] MEDS: INSULIN ASPART 100 UNITS/ML 3 ML PEN SC SCH ×5 (04:45→21:48)
[2020-07-18 04:55] LABS: Hematocrit (blood only) 42.8 % (42-52); Hemoglobin 14.5 g/dL (14.0-18.0); Mean Corpuscular Hemoglobin 31.7 pg (25-34); Mean Corpuscular Hgb Conc 33.9 g/dL (32-36); Mean Corpuscular Volume 93.7 fL (80-100); Mean Platelet Volume 9.1 fL (7.4-10.4); Nucleated RBC # (auto) 0.06 K/uL (0-0); Nucleated RBC % (auto) 0.6 %; Platelet Count 316 K/uL (130-400); RDW Coefficient of Variation 13.1 % (11.5-14.5); RDW Standard Deviation 44.7 fL (36.4-46.3); Red Blood Count 4.57 M/uL (4.7-6.1); White Blood Count 9.89 K/uL (4.8-10.8)
[2020-07-18 05:13] LABS: Albumin Level 2.2 gm/dl (3.4-5.0); Calcium 7.7 mg/dl (8.5-10.1); Creatinine Clr Calc Pharmacy 148.4 ml/min; Est GFR (African American) 117.4; Est GFR (Non-African American) 101.3; Magnesium 2.5 mg/dl (1.8-2.4); Potassium 3.9 mmol/L (3.5-5.1)
[2020-07-18 05:16] LABS: Albumin Globulin Ratio 0.4 (0.9-2); Bilirubin,Total 0.3 mg/dl (0.2-1); Phosphorus 3.1 mg/dl (2.5-4.9); Total Protein 7.2 gm/dl (6.4-8.2)
[2020-07-18 05:58] LABS: Estimated Average Glucose 318 mg/dl; Hemoglobin A1C 12.7 % (4.5-5.6)
--- NOTE | 2020-07-18 06:04 | Electrocardiogram Report ---
Test Reason : Blood Pressure : / mmHG Vent. Rate : 100 BPM Atrial Rate : 100 BPM P-R Int : 168 ms QRS Dur : 074 ms QT Int : 376 ms P-R-T Axes : 016 005 046 degrees QTc Int : 485 ms Normal sinus rhythm Possible Left atrial enlargement Nonspecific T wave abnormality Prolonged QT Abnormal ECG No previous ECGs available Confirmed by Crispin Erickson ([id number]) on 07/18/2020 6:03:55 AM Referred By: Confirmed By:Crispin Erickson
--- NOTE | 2020-07-18 07:42 | Hospitalist Progress Note ---
Date of Service July 18, 2020 Assessment & Plan (1) Pneumonia due to COVID-19 virus: (2) Acute respiratory failure with hypoxia: PE -Patient presenting from home with reports of worsening shortness of breath x 9 days. Diagnosed COVID-19 on 07/13 -In the ED, saturating 54% on room air, currently requiring 6 L of oxygen via nasal cannula to maintain saturation 93% -CXR shows multifocal pneumonia -IV dexamethasone, IV remdesivir -Patient completed course of azithromycin as an outpatient, will start empiric p.o. doxycycline and IV ceftriaxone. Noted normal procalcitonin 0.06 -Follow blood cultures -D-dimer 30,000 -CTA chest, BL LE Dopplers -CTA confirms sign. PE - pt was given TPA, pulmonary medicine consulted, pt observed in ICU -currently on HF NC (3) Prolonged QT interval: -QTC 528 -? Due to recent use of p.o. azithromycin -K+ 4.0, check Mg+ -Avoid QTC prolonging agents -Daily EKG (4) Diastolic dysfunction: -Echo 2016: Grade 1 diastolic dysfunction -Patient has some mild edema on exam, received Lasix 20mg IV on admission (5) DM type 2 (diabetes mellitus, type 2): -Hgb A1c 10.4 10/2019 -Hold oral agents, utilize Lantus and NovoLog per protocol while hospitalized -Given uncontrolled A1c and use of IV steroids, glycemic pharmacy consulted -ems educator consulted as well -Discussed starting insulin dc, pt in agreement (6) HTN (hypertension): -BP controlled, continue losartan (7) DVT prophylaxis: - pt treated for PE Admission and Anticipated Discharge Date Admission Date: July 17, 2020 Subjective Pt is seen in follow up of covid infection and PE s/p TPA, uncontrolled diabetes. He is laying on his left side, on HF NC, not in distress. He is able to answer questions w/o much difficulty, he is alert and oriented. Also discussed a need of insulin on dc. Review of Systems Review of Systems: All systems reviewed & are unremarkable except as noted in HPI & below Constitutional: no fever and no chills Respiratory: + cough and + dyspnea Cardiovascular: no chest pain and no palpitations Gastrointestinal: no abdominal pain, no nausea and no vomiting Physical Exam Physical Exam: Constitutional: WD/WN, vitals as above + obese; no acute distress but on HF NC Eyes: PERRL, EOMI, conjunctivae normal, anicteric sclerae ENMT: external ear and nose normal, oropharynx normal Respiratory: normal respiratory effort; no respiratory distress Auscultation: + crackles (Faint, right mid and lower lung díaz) Cardiovascular: Rate/Rhythm: regular rate and regular rhythm Vessels: normal peripheral pulses Extremities: + edema (Trace edema BLE) Gastrointestinal (Abdomen): normal bowel sounds, soft, nontender, no hepatosplenomegaly Musculoskeletal: no cyanosis or clubbing, extremities motor strength 5/5 Skin: no rashes, warm and dry Neurologic: PERRL, EOMI, no face palsy, no dysarthria Psychiatric: A+Ox3, euthymic affect Results & Data Results & Data ([facility]) Vital Signs (Past 12 Hours) Vital Signs Temp Pulse Pulse Resp BP Pulse Ox 07/18/20 06:02 77 23 150/84 H 93 07/18/20 05:02 78 23 127/57 L 93 07/18/20 04:06 61 24 97 07/18/20 04:00 64 23 146/66 H 97 07/18/20 03:18 37.1 C 07/18/20 03:17 73 25 H 140/82 93 07/18/20 02:01 81 25 H 120/81 91 07/18/20 01:00 76 20 149/96 H 91 07/18/20 00:14 85 07/18/20 00:00 80 25 H 154/105 H 93 07/17/20 23:48 37.1 C 07/17/20 23:00 85 27 H 144/95 H 94 07/17/20 22:25 80 28 H 92 07/17/20 22:00 83 22 156/100 H 92 07/17/20 21:00 86 29 H 155/102 H 88 L 07/17/20 20:10 37.3 C 07/17/20 20:09 92 H 26 H 88 L 07/17/20 20:00 90 161/96 H 87 L 07/17/20 19:48 90 159/99 H 91 Laboratory Results 07/18/20 07/18/20 07/18/20 Range/Units 07:07 06:49 04:32 WBC (4.8-10.8) K/uL RBC (4.7-6.1) M/uL Hgb (14.0-18.0) g/dL POC Hgb (14.0-18.0) g/dl Hct (42-52) % POC Hct (42-52) % MCV (80-100) fL MCH (25-34) pg MCHC (32-36) g/dL RDW Std Deviation (36.4-46.3) fL RDW Coeff of Angy (11.5-14.5) % Plt Count (130-400) K/uL MPV (7.4-10.4) fL Immature Gran % (Auto) % Neut % (Auto) % Lymph % (Auto) % [place] % (Auto) % Eos % (Auto) % Baso % (Auto) % Neut # (Auto) (1.4-6.5) K/uL Lymph # (Auto) (1.2-3.4) K/uL [place] # (Auto) (0.11-0.59) K/uL Eos # (Auto) (0-0.5) K/uL Baso # (Auto) (0-0.2) K/uL Immature Gran # (Auto) (0.00-0.02) K/uL Absolute Nucleated RBC (0-0) K/uL Nucleated RBC % (auto) % Polychromasia PT INR APTT PTT Ratio D-Dimer Heparin Anti-Xa, LM Wt Pending 0.49 (< 0.10) IU/ML Sample Site POC pH (7.35-7.45) POC pCO2 (35-46) mmHg POC pO2 (80-95) mmHg POC HCO3 (19-24) jonathon/L POC Total CO2 (24-31) mmol/L POC Base Excess (-9-1.8) jonathon/L ABG pH (7.35-7.45) ABG pH (Temp Correct) (7.35-7.45) ABG pCO2 (35-46) mmHg ABG pCO2 (Temp Corrct (35-46) mmHg ABG pO2 (80-95) mmHg POC ABG pO2 at Pt Temp ABG HCO3 (19-24) mmol/L POC ABG O2 Sat (90-95) % ABG O2 Saturation (90-95) % ABG Base Excess (-9-1.8) mEq/L Herbie Test (Pos) Barometric Pressure mm/Hg Oxygen Given O2 Delivery Device POC O2 Rate POC FiO2 % IPAP POC Sodium (135-144) mmol/L Sodium POC Potassium (3.3-5.0) mmol/L Potassium Chloride Carbon Dioxide Anion Gap BUN Creatinine Est Cr Clr Drug Dosing Est GFR ( Amer) Est GFR (Non-Af Amer) BUN/Creatinine Ratio Glucose POC Glucose 132 H (70-99) mg/dl Estimat Average Glucose mg/dl Hemoglobin A1c (4.5-5.6) % Calcium Phosphorus (2.5-4.9) mg/dl Magnesium (1.8-2.4) mg/dl Ferritin (8-388) ng/ml Total Bilirubin AST ALT Alkaline Phosphatase Lactate Dehydrogenase Total Creatine Kinase (39-308) U/L Troponin I C-Reactive Protein (0-0.29) mg/dl Total Protein Albumin Globulin Albumin/Globulin Ratio Procalcitonin Nasal Screen MRSA (PCR) (Negative) Blood Type Antibody Screen 07/18/20 07/18/20 07/18/20 Range/Units 04:32 04:32 04:32 WBC 9.89 (4.8-10.8) K/uL RBC 4.57 L (4.7-6.1) M/uL Hgb 14.5 (14.0-18.0) g/dL POC Hgb (14.0-18.0) g/dl Hct 42.8 (42-52) % POC Hct (42-52) % MCV 93.7 (80-100) fL MCH 31.7 (25-34) pg MCHC 33.9 (32-36) g/dL RDW Std Deviation 44.7 (36.4-46.3) fL RDW Coeff of Angy 13.1 (11.5-14.5) % Plt Count 316 (130-400) K/uL MPV 9.1 (7.4-10.4) fL Immature Gran % (Auto) % Neut % (Auto) % Lymph % (Auto) % [place] % (Auto) % Eos % (Auto) % Baso % (Auto) % Neut # (Auto) (1.4-6.5) K/uL Lymph # (Auto) (1.2-3.4) K/uL [place] # (Auto) (0.11-0.59) K/uL Eos # (Auto) (0-0.5) K/uL Baso # (Auto) (0-0.2) K/uL Immature Gran # (Auto) (0.00-0.02) K/uL Absolute Nucleated RBC 0.06 H (0-0) K/uL Nucleated RBC % (auto) 0.6 % Polychromasia PT INR APTT PTT Ratio D-Dimer Heparin Anti-Xa, LM Wt (< 0.10) IU/ML Sample Site POC pH (7.35-7.45) POC pCO2 (35-46) mmHg POC pO2 (80-95) mmHg POC HCO3 (19-24) jonathon/L POC Total CO2 (24-31) mmol/L POC Base Excess (-9-1.8) jonathon/L ABG pH (7.35-7.45) ABG pH (Temp Correct) (7.35-7.45) ABG pCO2 (35-46) mmHg ABG pCO2 (Temp Corrct (35-46) mmHg ABG pO2 (80-95) mmHg POC ABG pO2 at Pt Temp ABG HCO3 (19-24) mmol/L POC ABG O2 Sat (90-95) % ABG O2 Saturation (90-95) % ABG Base Excess (-9-1.8) mEq/L Herbie Test (Pos) Barometric Pressure mm/Hg Oxygen Given O2 Delivery Device POC O2 Rate POC FiO2 % IPAP POC Sodium (135-144) mmol/L Sodium 138 POC Potassium (3.3-5.0) mmol/L Potassium 3.9 Chloride 104 Carbon Dioxide 28 Anion Gap 6.0 BUN 23 H Creatinine 0.71 Est Cr Clr Drug Dosing 148.4 Est GFR ( Amer) 117.4 Est GFR (Non-Af Amer) 101.3 BUN/Creatinine Ratio 32.0 H Glucose 121 H POC Glucose (70-99) mg/dl Estimat Average Glucose 318 mg/dl Hemoglobin A1c 12.7 H (4.5-5.6) % Calcium 7.7 L Phosphorus 3.1 (2.5-4.9) mg/dl Magnesium 2.5 H (1.8-2.4) mg/dl Ferritin (8-388) ng/ml Total Bilirubin 0.3 AST 20 ALT 21 Alkaline Phosphatase 56 Lactate Dehydrogenase Total Creatine Kinase (39-308) U/L Troponin I C-Reactive Protein (0-0.29) mg/dl Total Protein 7.2 Albumin 2.2 L Globulin 5.0 H Albumin/Globulin Ratio 0.4 L Procalcitonin Nasal Screen MRSA (PCR) (Negative) Blood Type Antibody Screen 07/18/20 07/18/20 07/18/20 Range/Units 04:20 03:54 01:29 WBC (4.8-10.8) K/uL RBC (4.7-6.1) M/uL Hgb (14.0-18.0) g/dL POC Hgb 13.6 L (14.0-18.0) g/dl Hct (42-52) % POC Hct 40 L (42-52) % MCV (80-100) fL MCH (25-34) pg MCHC (32-36) g/dL RDW Std Deviation (36.4-46.3) fL RDW Coeff of Angy (11.5-14.5) % Plt Count (130-400) K/uL MPV (7.4-10.4) fL Immature Gran % (Auto) % Neut % (Auto) % Lymph % (Auto) % [place] % (Auto) % Eos % (Auto) % Baso % (Auto) % Neut # (Auto) (1.4-6.5) K/uL Lymph # (Auto) (1.2-3.4) K/uL [place] # (Auto) (0.11-0.59) K/uL Eos # (Auto) (0-0.5) K/uL Baso # (Auto) (0-0.2) K/uL Immature Gran # (Auto) (0.00-0.02) K/uL Absolute Nucleated RBC (0-0) K/uL Nucleated RBC % (auto) % Polychromasia PT INR APTT PTT Ratio D-Dimer Heparin Anti-Xa, LM Wt 0.76 (< 0.10) IU/ML Sample Site L Radial POC pH 7.46 H (7.35-7.45) POC pCO2 32 L (35-46) mmHg POC pO2 80 (80-95) mmHg POC HCO3 23 (19-24) jonathon/L POC Total CO2 24 (24-31) mmol/L POC Base Excess -1.0 (-9-1.8) jonathon/L ABG pH (7.35-7.45) ABG pH (Temp Correct) 7.461 H (7.35-7.45) ABG pCO2 (35-46) mmHg ABG pCO2 (Temp Corrct 32 L (35-46) mmHg ABG pO2 (80-95) mmHg POC ABG pO2 at Pt Temp 80 ABG HCO3 (19-24) mmol/L POC ABG O2 Sat 97.0 H (90-95) % ABG O2 Saturation (90-95) % ABG Base Excess (-9-1.8) mEq/L Herbie Test Pass (Pos) Barometric Pressure mm/Hg Oxygen Given O2 Delivery Device BIPAP POC O2 Rate 12 POC FiO2 80 % IPAP 12 POC Sodium 138 (135-144) mmol/L Sodium POC Potassium 3.6 (3.3-5.0) mmol/L Potassium Chloride Carbon Dioxide Anion Gap BUN Creatinine Est Cr Clr Drug Dosing Est GFR ( Amer) Est GFR (Non-Af Amer) BUN/Creatinine Ratio Glucose POC Glucose 125 H (70-99) mg/dl Estimat Average Glucose mg/dl Hemoglobin A1c (4.5-5.6) % Calcium Phosphorus (2.5-4.9) mg/dl Magnesium (1.8-2.4) mg/dl Ferritin (8-388) ng/ml Total Bilirubin AST ALT Alkaline Phosphatase Lactate Dehydrogenase Total Creatine Kinase (39-308) U/L Troponin I C-Reactive Protein (0-0.29) mg/dl Total Protein Albumin Globulin Albumin/Globulin Ratio Procalcitonin Nasal Screen MRSA (PCR) (Negative) Blood Type Antibody Screen 07/17/20 07/17/20 07/17/20 Range/Units 23:41 23:34 20:46 WBC (4.8-10.8) K/uL RBC (4.7-6.1) M/uL Hgb (14.0-18.0) g/dL POC Hgb (14.0-18.0) g/dl Hct (42-52) % POC Hct (42-52) % MCV (80-100) fL MCH (25-34) pg MCHC (32-36) g/dL RDW Std Deviation (36.4-46.3) fL RDW Coeff of Angy (11.5-14.5) % Plt Count (130-400) K/uL MPV (7.4-10.4) fL Immature Gran % (Auto) % Neut % (Auto) % Lymph % (Auto) % [place] % (Auto) % Eos % (Auto) % Baso % (Auto) % Neut # (Auto) (1.4-6.5) K/uL Lymph # (Auto) (1.2-3.4) K/uL [place] # (Auto) (0.11-0.59) K/uL Eos # (Auto) (0-0.5) K/uL Baso # (Auto) (0-0.2) K/uL Immature Gran # (Auto) (0.00-0.02) K/uL Absolute Nucleated RBC (0-0) K/uL Nucleated RBC % (auto) % Polychromasia PT 12.2 H INR 1.2 H APTT PTT Ratio D-Dimer Heparin Anti-Xa, LM Wt 0.78 (< 0.10) IU/ML Sample Site POC pH (7.35-7.45) POC pCO2 (35-46) mmHg POC pO2 (80-95) mmHg POC HCO3 (19-24) jonathon/L POC Total CO2 (24-31) mmol/L POC Base Excess (-9-1.8) jonathon/L ABG pH (7.35-7.45) ABG pH (Temp Correct) (7.35-7.45) ABG pCO2 (35-46) mmHg ABG pCO2 (Temp Corrct (35-46) mmHg ABG pO2 (80-95) mmHg POC ABG pO2 at Pt Temp ABG HCO3 (19-24) mmol/L POC ABG O2 Sat (90-95) % ABG O2 Saturation (90-95) % ABG Base Excess (-9-1.8) mEq/L Herbie Test (Pos) Barometric Pressure mm/Hg Oxygen Given O2 Delivery Device POC O2 Rate POC FiO2 % IPAP POC Sodium (135-144) mmol/L Sodium POC Potassium (3.3-5.0) mmol/L Potassium Chloride Carbon Dioxide Anion Gap BUN Creatinine Est Cr Clr Drug Dosing Est GFR ( Amer) Est GFR (Non-Af Amer) BUN/Creatinine Ratio Glucose POC Glucose 217 H 281 H (70-99) mg/dl Estimat Average Glucose mg/dl Hemoglobin A1c (4.5-5.6) % Calcium Phosphorus (2.5-4.9) mg/dl Magnesium (1.8-2.4) mg/dl Ferritin (8-388) ng/ml Total Bilirubin AST ALT Alkaline Phosphatase Lactate Dehydrogenase Total Creatine Kinase (39-308) U/L Troponin I C-Reactive Protein (0-0.29) mg/dl Total Protein Albumin Globulin Albumin/Globulin Ratio Procalcitonin Nasal Screen MRSA (PCR) (Negative) Blood Type Antibody Screen 07/17/20 07/17/20 07/17/20 Range/Units 20:42 18:11 18:06 WBC 8.84 (4.8-10.8) K/uL RBC 4.57 L (4.7-6.1) M/uL Hgb 14.5 (14.0-18.0) g/dL POC Hgb (14.0-18.0) g/dl Hct 43.1 (42-52) % POC Hct (42-52) % MCV 94.3 (80-100) fL MCH 31.7 (25-34) pg MCHC 33.6 (32-36) g/dL RDW Std Deviation 45.3 (36.4-46.3) fL RDW Coeff of Angy 13.1 (11.5-14.5) % Plt Count 312 (130-400) K/uL MPV 9.2 (7.4-10.4) fL Immature Gran % (Auto) % Neut % (Auto) % Lymph % (Auto) % [place] % (Auto) % Eos % (Auto) % Baso % (Auto) % Neut # (Auto) (1.4-6.5) K/uL Lymph # (Auto) (1.2-3.4) K/uL [place] # (Auto) (0.11-0.59) K/uL Eos # (Auto) (0-0.5) K/uL Baso # (Auto) (0-0.2) K/uL Immature Gran # (Auto) (0.00-0.02) K/uL Absolute Nucleated RBC 0.11 H (0-0) K/uL Nucleated RBC % (auto) 1.2 % Polychromasia PT INR APTT PTT Ratio D-Dimer Heparin Anti-Xa, LM Wt (< 0.10) IU/ML Sample Site POC pH (7.35-7.45) POC pCO2 (35-46) mmHg POC pO2 (80-95) mmHg POC HCO3 (19-24) jonathon/L POC Total CO2 (24-31) mmol/L POC Base Excess (-9-1.8) jonathon/L ABG pH (7.35-7.45) ABG pH (Temp Correct) (7.35-7.45) ABG pCO2 (35-46) mmHg ABG pCO2 (Temp Corrct (35-46) mmHg ABG pO2 (80-95) mmHg POC ABG pO2 at Pt Temp ABG HCO3 (19-24) mmol/L POC ABG O2 Sat (90-95) % ABG O2 Saturation (90-95) % ABG Base Excess (-9-1.8) mEq/L Herbie Test (Pos) Barometric Pressure mm/Hg Oxygen Given O2 Delivery Device POC O2 Rate POC FiO2 % IPAP POC Sodium (135-144) mmol/L Sodium POC Potassium (3.3-5.0) mmol/L Potassium Chloride Carbon Dioxide Anion Gap BUN Creatinine Est Cr Clr Drug Dosing Est GFR ( Amer) Est GFR (Non-Af Amer) BUN/Creatinine Ratio Glucose POC Glucose (70-99) mg/dl Estimat Average Glucose mg/dl Hemoglobin A1c (4.5-5.6) % Calcium Phosphorus (2.5-4.9) mg/dl Magnesium (1.8-2.4) mg/dl Ferritin (8-388) ng/ml Total Bilirubin AST ALT Alkaline Phosphatase Lactate Dehydrogenase Total Creatine Kinase (39-308) U/L Troponin I C-Reactive Protein (0-0.29) mg/dl Total Protein Albumin Globulin Albumin/Globulin Ratio Procalcitonin Nasal Screen MRSA (PCR) Negative (Negative) Blood Type A Positive Antibody Screen NEGATIVE 07/17/20 07/17/20 07/17/20 Range/Units 16:46 16:15 16:15 WBC (4.8-10.8) K/uL RBC (4.7-6.1) M/uL Hgb (14.0-18.0) g/dL POC Hgb (14.0-18.0) g/dl Hct (42-52) % POC Hct (42-52) % MCV (80-100) fL MCH (25-34) pg MCHC (32-36) g/dL RDW Std Deviation (36.4-46.3) fL RDW Coeff of Angy (11.5-14.5) % Plt Count (130-400) K/uL MPV (7.4-10.4) fL Immature Gran % (Auto) % Neut % (Auto) % Lymph % (Auto) % [place] % (Auto) % Eos % (Auto) % Baso % (Auto) % Neut # (Auto) (1.4-6.5) K/uL Lymph # (Auto) (1.2-3.4) K/uL [place] # (Auto) (0.11-0.59) K/uL Eos # (Auto) (0-0.5) K/uL Baso # (Auto) (0-0.2) K/uL Immature Gran # (Auto) (0.00-0.02) K/uL Absolute Nucleated RBC (0-0) K/uL Nucleated RBC % (auto) % Polychromasia PT 12.0 INR 1.1 APTT 26.5 PTT Ratio 0.9 D-Dimer Heparin Anti-Xa, LM Wt < 0.10 (< 0.10) IU/ML Sample Site POC pH (7.35-7.45) POC pCO2 (35-46) mmHg POC pO2 (80-95) mmHg POC HCO3 (19-24) jonathon/L POC Total CO2 (24-31) mmol/L POC Base Excess (-9-1.8) jonathon/L ABG pH (7.35-7.45) ABG pH (Temp Correct) (7.35-7.45) ABG pCO2 (35-46) mmHg ABG pCO2 (Temp Corrct (35-46) mmHg ABG pO2 (80-95) mmHg POC ABG pO2 at Pt Temp ABG HCO3 (19-24) mmol/L POC ABG O2 Sat (90-95) % ABG O2 Saturation (90-95) % ABG Base Excess (-9-1.8) mEq/L Herbie Test (Pos) Barometric Pressure mm/Hg Oxygen Given O2 Delivery Device POC O2 Rate POC FiO2 % IPAP POC Sodium (135-144) mmol/L Sodium POC Potassium (3.3-5.0) mmol/L Potassium Chloride Carbon Dioxide Anion Gap BUN Creatinine Est Cr Clr Drug Dosing Est GFR ( Amer) Est GFR (Non-Af Amer) BUN/Creatinine Ratio Glucose POC Glucose 315 H* (70-99) mg/dl Estimat Average Glucose mg/dl Hemoglobin A1c (4.5-5.6) % Calcium Phosphorus (2.5-4.9) mg/dl Magnesium (1.8-2.4) mg/dl Ferritin (8-388) ng/ml Total Bilirubin AST ALT Alkaline Phosphatase Lactate Dehydrogenase Total Creatine Kinase (39-308) U/L Troponin I C-Reactive Protein (0-0.29) mg/dl Total Protein Albumin Globulin Albumin/Globulin Ratio Procalcitonin Nasal Screen MRSA (PCR) (Negative) Blood Type Antibody Screen 07/17/20 07/17/20 07/17/20 Range/Units 16:15 15:19 15:07 WBC 8.51 (4.8-10.8) K/uL RBC 4.43 L (4.7-6.1) M/uL Hgb 14.2 (14.0-18.0) g/dL POC Hgb (14.0-18.0) g/dl Hct 41.9 L (42-52) % POC Hct (42-52) % MCV 94.6 (80-100) fL MCH 32.1 (25-34) pg MCHC 33.9 (32-36) g/dL RDW Std Deviation 45.4 (36.4-46.3) fL RDW Coeff of Angy 13.1 (11.5-14.5) % Plt Count 309 (130-400) K/uL MPV 8.9 (7.4-10.4) fL Immature Gran % (Auto) 1.5 % Neut % (Auto) 85.1 % Lymph % (Auto) 10.8 % [place] % (Auto) 2.4 % Eos % (Auto) 0.0 % Baso % (Auto) 0.2 % Neut # (Auto) 7.24 H (1.4-6.5) K/uL Lymph # (Auto) 0.92 L (1.2-3.4) K/uL [place] # (Auto) 0.20 (0.11-0.59) K/uL Eos # (Auto) 0.00 (0-0.5) K/uL Baso # (Auto) 0.02 (0-0.2) K/uL Immature Gran # (Auto) 0.13 H (0.00-0.02) K/uL Absolute Nucleated RBC 0.06 H (0-0) K/uL Nucleated RBC % (auto) 0.7 % Polychromasia 1+ PT INR APTT PTT Ratio D-Dimer Heparin Anti-Xa, LM Wt (< 0.10) IU/ML Sample Site POC pH (7.35-7.45) POC pCO2 (35-46) mmHg POC pO2 (80-95) mmHg POC HCO3 (19-24) jonathon/L POC Total CO2 (24-31) mmol/L POC Base Excess (-9-1.8) jonathon/L ABG pH (7.35-7.45) ABG pH (Temp Correct) (7.35-7.45) ABG pCO2 (35-46) mmHg ABG pCO2 (Temp Corrct (35-46) mmHg ABG pO2 (80-95) mmHg POC ABG pO2 at Pt Temp ABG HCO3 (19-24) mmol/L POC ABG O2 Sat (90-95) % ABG O2 Saturation (90-95) % ABG Base Excess (-9-1.8) mEq/L Herbie Test (Pos) Barometric Pressure mm/Hg Oxygen Given O2 Delivery Device POC O2 Rate POC FiO2 % IPAP POC Sodium (135-144) mmol/L Sodium POC Potassium (3.3-5.0) mmol/L Potassium Chloride Carbon Dioxide Anion Gap BUN Creatinine Est Cr Clr Drug Dosing Est GFR ( Amer) Est GFR (Non-Af Amer) BUN/Creatinine Ratio Glucose POC Glucose 322 H* (70-99) mg/dl Estimat Average Glucose mg/dl Hemoglobin A1c (4.5-5.6) % Calcium Phosphorus (2.5-4.9) mg/dl Magnesium 2.5 H (1.8-2.4) mg/dl Ferritin (8-388) ng/ml Total Bilirubin AST ALT Alkaline Phosphatase Lactate Dehydrogenase Total Creatine Kinase (39-308) U/L Troponin I C-Reactive Protein (0-0.29) mg/dl Total Protein Albumin Globulin Albumin/Globulin Ratio Procalcitonin Nasal Screen MRSA (PCR) (Negative) Blood Type Antibody Screen 07/17/20 07/17/20 07/17/20 Range/Units 12:34 12:34 12:34 WBC (4.8-10.8) K/uL RBC (4.7-6.1) M/uL Hgb (14.0-18.0) g/dL POC Hgb (14.0-18.0) g/dl Hct (42-52) % POC Hct (42-52) % MCV (80-100) fL MCH (25-34) pg MCHC (32-36) g/dL RDW Std Deviation (36.4-46.3) fL RDW Coeff of Angy (11.5-14.5) % Plt Count (130-400) K/uL MPV (7.4-10.4) fL Immature Gran % (Auto) % Neut % (Auto) % Lymph % (Auto) % [place] % (Auto) % Eos % (Auto) % Baso % (Auto) % Neut # (Auto) (1.4-6.5) K/uL Lymph # (Auto) (1.2-3.4) K/uL [place] # (Auto) (0.11-0.59) K/uL Eos # (Auto) (0-0.5) K/uL Baso # (Auto) (0-0.2) K/uL Immature Gran # (Auto) (0.00-0.02) K/uL Absolute Nucleated RBC (0-0) K/uL Nucleated RBC % (auto) % Polychromasia PT INR APTT PTT Ratio D-Dimer Heparin Anti-Xa, LM Wt (< 0.10) IU/ML Sample Site POC pH (7.35-7.45) POC pCO2 (35-46) mmHg POC pO2 (80-95) mmHg POC HCO3 (19-24) jonathon/L POC Total CO2 (24-31) mmol/L POC Base Excess (-9-1.8) jonathon/L ABG pH 7.46 H (7.35-7.45) ABG pH (Temp Correct) (7.35-7.45) ABG pCO2 29 L (35-46) mmHg ABG pCO2 (Temp Corrct (35-46) mmHg ABG pO2 56 L (80-95) mmHg POC ABG pO2 at Pt Temp ABG HCO3 20 (19-24) mmol/L POC ABG O2 Sat (90-95) % ABG O2 Saturation 89.0 L (90-95) % ABG Base Excess -2.2 (-9-1.8) mEq/L Herbie Test Pos (Pos) Barometric Pressure 733.8 mm/Hg Oxygen Given 6L O2 Delivery Device POC O2 Rate POC FiO2 % IPAP POC Sodium (135-144) mmol/L Sodium POC Potassium (3.3-5.0) mmol/L Potassium Chloride Carbon Dioxide Anion Gap BUN Creatinine Est Cr Clr Drug Dosing Est GFR ( Amer) Est GFR (Non-Af Amer) BUN/Creatinine Ratio Glucose POC Glucose (70-99) mg/dl Estimat Average Glucose mg/dl Hemoglobin A1c (4.5-5.6) % Calcium Phosphorus (2.5-4.9) mg/dl Magnesium (1.8-2.4) mg/dl Ferritin (8-388) ng/ml Total Bilirubin AST ALT Alkaline Phosphatase Lactate Dehydrogenase 601 H Total Creatine Kinase (39-308) U/L Troponin I C-Reactive Protein (0-0.29) mg/dl Total Protein Albumin Globulin Albumin/Globulin Ratio Procalcitonin 0.06 Nasal Screen MRSA (PCR) (Negative) Blood Type Antibody Screen 07/17/20 07/17/20 07/17/20 Range/Units 12:34 12:34 11:12 WBC (4.8-10.8) K/uL RBC (4.7-6.1) M/uL Hgb (14.0-18.0) g/dL POC Hgb (14.0-18.0) g/dl Hct (42-52) % POC Hct (42-52) % MCV (80-100) fL MCH (25-34) pg MCHC (32-36) g/dL RDW Std Deviation (36.4-46.3) fL RDW Coeff of Angy (11.5-14.5) % Plt Count (130-400) K/uL MPV (7.4-10.4) fL Immature Gran % (Auto) % Neut % (Auto) % Lymph % (Auto) % [place] % (Auto) % Eos % (Auto) % Baso % (Auto) % Neut # (Auto) (1.4-6.5) K/uL Lymph # (Auto) (1.2-3.4) K/uL [place] # (Auto) (0.11-0.59) K/uL Eos # (Auto) (0-0.5) K/uL Baso # (Auto) (0-0.2) K/uL Immature Gran # (Auto) (0.00-0.02) K/uL Absolute Nucleated RBC (0-0) K/uL Nucleated RBC % (auto) % Polychromasia PT 12.1 H INR 1.2 H APTT 25.8 PTT Ratio 0.9 D-Dimer 70784 H* Heparin Anti-Xa, LM Wt (< 0.10) IU/ML Sample Site POC pH (7.35-7.45) POC pCO2 (35-46) mmHg POC pO2 (80-95) mmHg POC HCO3 (19-24) jonathon/L POC Total CO2 (24-31) mmol/L POC Base Excess (-9-1.8) jonathon/L ABG pH (7.35-7.45) ABG pH (Temp Correct) (7.35-7.45) ABG pCO2 (35-46) mmHg ABG pCO2 (Temp Corrct (35-46) mmHg ABG pO2 (80-95) mmHg POC ABG pO2 at Pt Temp ABG HCO3 (19-24) mmol/L POC ABG O2 Sat (90-95) % ABG O2 Saturation (90-95) % ABG Base Excess (-9-1.8) mEq/L Herbie Test (Pos) Barometric Pressure mm/Hg Oxygen Given O2 Delivery Device POC O2 Rate POC FiO2 % IPAP POC Sodium (135-144) mmol/L Sodium 135 L POC Potassium (3.3-5.0) mmol/L Potassium 4.0 Chloride 105 Carbon Dioxide 19 L Anion Gap 12.0 H BUN 19 H Creatinine 0.60 Est Cr Clr Drug Dosing Not Reportable Est GFR ( Amer) 125.8 Est GFR (Non-Af Amer) 108.5 BUN/Creatinine Ratio 31.0 H Glucose 300 H POC Glucose (70-99) mg/dl Estimat Average Glucose mg/dl Hemoglobin A1c (4.5-5.6) % Calcium 8.1 L Phosphorus (2.5-4.9) mg/dl Magnesium (1.8-2.4) mg/dl Ferritin 894.7 H (8-388) ng/ml Total Bilirubin 0.4 AST 23 ALT 22 Alkaline Phosphatase 61 Lactate Dehydrogenase Cancelled Total Creatine Kinase 48 (39-308) U/L Troponin I < 0.015 C-Reactive Protein 16.80 H (0-0.29) mg/dl Total Protein 7.4 Albumin 2.3 L Globulin 5.1 H Albumin/Globulin Ratio 0.4 L Procalcitonin Nasal Screen MRSA (PCR) (Negative) Blood Type Antibody Screen 07/17/20 07/17/20 07/17/20 Range/Units 11:12 11:12 11:12 WBC 11.10 H (4.8-10.8) K/uL RBC 4.84 (4.7-6.1) M/uL Hgb 15.4 (14.0-18.0) g/dL POC Hgb (14.0-18.0) g/dl Hct 45.6 (42-52) % POC Hct (42-52) % MCV 94.2 (80-100) fL MCH 31.8 (25-34) pg MCHC 33.8 (32-36) g/dL RDW Std Deviation 44.6 (36.4-46.3) fL RDW Coeff of Angy 12.9 (11.5-14.5) % Plt Count 354 (130-400) K/uL MPV 9.1 (7.4-10.4) fL Immature Gran % (Auto) 1.9 % Neut % (Auto) 84.7 % Lymph % (Auto) 8.9 % [place] % (Auto) 4.1 % Eos % (Auto) 0.1 % Baso % (Auto) 0.3 % Neut # (Auto) 9.40 H (1.4-6.5) K/uL Lymph # (Auto) 0.99 L (1.2-3.4) K/uL [place] # (Auto) 0.46 (0.11-0.59) K/uL Eos # (Auto) 0.01 (0-0.5) K/uL Baso # (Auto) 0.03 (0-0.2) K/uL Immature Gran # (Auto) 0.21 H (0.00-0.02) K/uL Absolute Nucleated RBC 0.08 H (0-0) K/uL Nucleated RBC % (auto) 0.7 % Polychromasia PT Cancelled INR Cancelled APTT Cancelled PTT Ratio Cancelled D-Dimer Cancelled Heparin Anti-Xa, LM Wt (< 0.10) IU/ML Sample Site POC pH (7.35-7.45) POC pCO2 (35-46) mmHg POC pO2 (80-95) mmHg POC HCO3 (19-24) jonathon/L POC Total CO2 (24-31) mmol/L POC Base Excess (-9-1.8) jonathon/L ABG pH (7.35-7.45) ABG pH (Temp Correct) (7.35-7.45) ABG pCO2 (35-46) mmHg ABG pCO2 (Temp Corrct (35-46) mmHg ABG pO2 (80-95) mmHg POC ABG pO2 at Pt Temp ABG HCO3 (19-24) mmol/L POC ABG O2 Sat (90-95) % ABG O2 Saturation (90-95) % ABG Base Excess (-9-1.8) mEq/L Herbie Test (Pos) Barometric Pressure mm/Hg Oxygen Given O2 Delivery Device POC O2 Rate POC FiO2 % IPAP POC Sodium (135-144) mmol/L Sodium POC Potassium (3.3-5.0) mmol/L Potassium Chloride Carbon Dioxide Anion Gap BUN Creatinine Est Cr Clr Drug Dosing Est GFR ( Amer) Est GFR (Non-Af Amer) BUN/Creatinine Ratio Glucose POC Glucose (70-99) mg/dl Estimat Average Glucose mg/dl Hemoglobin A1c (4.5-5.6) % Calcium Phosphorus (2.5-4.9) mg/dl Magnesium (1.8-2.4) mg/dl Ferritin (8-388) ng/ml Total Bilirubin AST ALT Alkaline Phosphatase Lactate Dehydrogenase Total Creatine Kinase (39-308) U/L Troponin I C-Reactive Protein (0-0.29) mg/dl Total Protein Albumin Globulin Albumin/Globulin Ratio Procalcitonin Cancelled Nasal Screen MRSA (PCR) (Negative) Blood Type Antibody Screen 07/17/20 Range/Units 11:12 WBC (4.8-10.8) K/uL RBC (4.7-6.1) M/uL Hgb (14.0-18.0) g/dL POC Hgb (14.0-18.0) g/dl Hct (42-52) % POC Hct (42-52) % MCV (80-100) fL MCH (25-34) pg MCHC (32-36) g/dL RDW Std Deviation (36.4-46.3) fL RDW Coeff of Angy (11.5-14.5) % Plt Count (130-400) K/uL MPV (7.4-10.4) fL Immature Gran % (Auto) % Neut % (Auto) % Lymph % (Auto) % [place] % (Auto) % Eos % (Auto) % Baso % (Auto) % Neut # (Auto) (1.4-6.5) K/uL Lymph # (Auto) (1.2-3.4) K/uL [place] # (Auto) (0.11-0.59) K/uL Eos # (Auto) (0-0.5) K/uL Baso # (Auto) (0-0.2) K/uL Immature Gran # (Auto) (0.00-0.02) K/uL Absolute Nucleated RBC (0-0) K/uL Nucleated RBC % (auto) % Polychromasia PT INR APTT PTT Ratio D-Dimer Heparin Anti-Xa, LM Wt (< 0.10) IU/ML Sample Site POC pH (7.35-7.45) POC pCO2 (35-46) mmHg POC pO2 (80-95) mmHg POC HCO3 (19-24) jonathon/L POC Total CO2 (24-31) mmol/L POC Base Excess (-9-1.8) jonathon/L ABG pH (7.35-7.45) ABG pH (Temp Correct) (7.35-7.45) ABG pCO2 (35-46) mmHg ABG pCO2 (Temp Corrct (35-46) mmHg ABG pO2 (80-95) mmHg POC ABG pO2 at Pt Temp ABG HCO3 (19-24) mmol/L POC ABG O2 Sat (90-95) % ABG O2 Saturation (90-95) % ABG Base Excess (-9-1.8) mEq/L Herbie Test (Pos) Barometric Pressure mm/Hg Oxygen Given O2 Delivery Device POC O2 Rate POC FiO2 % IPAP POC Sodium (135-144) mmol/L Sodium Cancelled POC Potassium (3.3-5.0) mmol/L Potassium Cancelled Chloride Cancelled Carbon Dioxide Cancelled Anion Gap Cancelled BUN Cancelled Creatinine Cancelled Est Cr Clr Drug Dosing Cancelled Est GFR ( Amer) Cancelled Est GFR (Non-Af Amer) Cancelled BUN/Creatinine Ratio Cancelled Glucose Cancelled POC Glucose (70-99) mg/dl Estimat Average Glucose mg/dl Hemoglobin A1c (4.5-5.6) % Calcium Cancelled Phosphorus (2.5-4.9) mg/dl Magnesium (1.8-2.4) mg/dl Ferritin (8-388) ng/ml Total Bilirubin Cancelled AST Cancelled ALT Cancelled Alkaline Phosphatase Cancelled Lactate Dehydrogenase Total Creatine Kinase (39-308) U/L Troponin I Cancelled C-Reactive Protein (0-0.29) mg/dl Total Protein Cancelled Albumin Cancelled Globulin Cancelled Albumin/Globulin Ratio Cancelled Procalcitonin Nasal Screen MRSA (PCR) (Negative) Blood Type Antibody Screen Medications Administered Current Inpatient Medications Acetaminophen (Acetaminophen 325 Mg Tab) 650 mg PO Q4H PRN PRN Reason: Pain or Fever Stop: 08/16/20 14:59 Albuterol (Albuterol Hfa 8 Gm Inhaler) 2 puffs INH Q4H PRN PRN Reason: shortness of breath Stop: 08/16/20 14:59 Albuterol (Albut/Ipratrop 3mg/0.5mg Neb 3 Ml Vial) 3 ml NEB Q4R PRN PRN Reason: Shortness Of Breath Or Wheezing Stop: 08/16/20 22:59 Dextrose (Dextrose 50% 50 Ml Syringe) 25 - 50 ml IV UD PRN; Protocol PRN Reason: Hypoglycemia Protocol Stop: 08/16/20 15:44 Doxycycline Hyclate (Doxycycline Hyclate 100 Mg Cap) 100 mg PO BID LONNY Stop: 07/24/20 20:59 Last Admin: 07/17/20 20:51 Dose: 100 mg Documented by: Glucagon (Glucagon For Inj 1 Mg Vial) 1 mg IM UD PRN; Protocol PRN Reason: Hypoglycemia Protocol Stop: 08/16/20 15:44 Glucose (Glucose 40% Gel 15 Gm Tube) 15 - 30 gm PO UD PRN; Protocol PRN Reason: Hypoglycemia Protocol Stop: 08/16/20 15:44 Glucose (Glucose 10 Tabs/Tube) 4 - 8 tabs PO UD PRN; Protocol PRN Reason: Hypoglycemia Protocol Stop: 08/16/20 15:44 Remdesivir 100 mg/ Sodium (Chloride) 250 mls @ 250 mls/hr IV Q24H LONNY; Protocol Stop: 07/21/20 16:59 Dexamethasone 6 mg/ Syringe 1.5 mls @ 1 mls/min IV DAILY LONNY Stop: 07/28/20 08:59 Alteplase, Recombinant 50 mg/ (EMPTY BAG) 50 mls @ 25 mls/hr IV NOW STA; Protocol Stop: 07/17/20 19:45 Insulin Aspart (Insulin Aspart 100 Units/Ml 3 Ml Pen) 0 units SC ACHS LONNY Stop: 08/16/20 16:29 Last Admin: 07/17/20 20:50 Dose: 12 units Documented by: Losartan Potassium (Losartan Potassium 50 Mg Tab) 50 mg PO DAILY LONNY Stop: 08/17/20 08:59 Miscellaneous (Carbohydrates For Hypoglycemia ) 15 - 30 gm PO UD PRN PRN Reason: Hypoglycemia Treatment Stop: 08/16/20 15:44 Miscellaneous Information (Pharmacy Glycemic Mgmt Consult) 1 ea N/A UD PRN PRN Reason: Consult Stop: 08/16/20 15:20 Miscellaneous Information (Dc All Anticoagulants ) 1 ea N/A UD PRN PRN Reason: NOTIFICATION Stop: 08/16/20 18:51 Sodium Chloride (Sodium Chloride 0.9% 10ml Flush) 30 ml IV Q24H LONNY Stop: 07/21/20 16:01 Last Admin: 07/17/20 16:49 Dose: 30 ml Documented by: Sodium Chloride (Sodium Chloride 0.9% 50 Ml Bag) 50 ml IV NOW STA Stop: 07/17/20 17:47 Tamsulosin HCl (Tamsulosin Hcl 0.4 Mg Cap) 0.4 mg PO QAM LONNY Stop: 08/17/20 08:59
--- NOTE | 2020-07-18 08:13 | XRay Report ---
XR chest 1V portable CLINICAL HISTORY: Pneumonia/respiratory failure COMPARISON STUDY: 07/17/2020 FINDINGS: The heart is enlarged. There is aortic tortuosity/ectasia. There are bilateral pulmonary ai rspace opacities stable to minimally improved.. The findings are consistent with a multifocal pneumon itis.[ IMPRESSION: Persistent bilateral pulmonary airspace opacities consistent with a multifocal pneumoniti s. The findings are stable to minimally improved. ACT 112: Negative or not required by law. Electronically signed by: Danielito Will M.D. 07/18/2020 8:12 AM
[2020-07-18] MEDS: dexAMETHasone 6 MG in SYRINGE 0 ML IV SCH (08:38)
[2020-07-18] MEDS: DOXYCYCLINE HYCLATE 100 MG CAP PO SCH ×2 (08:38→21:23)
[2020-07-18] MEDS: LOSARTAN POTASSIUM 50 MG TAB PO SCH (08:38)
[2020-07-18] MEDS: TAMSULOSIN HCL 0.4 MG CAP PO SCH (08:38)
[2020-07-18] MEDS: INSULIN HUMAN NPH SC SCH (08:42)
[2020-07-18] MEDS ORDERED: PRIMARY PLUMSET, PE LINED TUBING, 113 IN, NON-DEHP (2260-0500) IV ONE (08:44)
[2020-07-18] MEDS ORDERED: ALTEPLASE, RECOMBINANT 50 MG in EMPTY BAG 0 ML IV ONE (08:45)
[2020-07-18] MEDS ORDERED: INSULIN GLARGINE SOLOSTAR 100 UNITS/ML 3 ML PEN SC SCH ×2 (09:00→17:00)
[2020-07-18] MEDS ORDERED: SODIUM CHLORIDE 0.9% 50 ML BAG IV ONE (10:45)
[2020-07-18 13:11] LABS: Hemoglobin 14.3 g/dL (14.0-18.0); Mean Corpuscular Hemoglobin 31.5 pg (25-34); Mean Corpuscular Volume 94.7 fL (80-100); Mean Platelet Volume 9.4 fL (7.4-10.4); Nucleated RBC # (auto) 0.02 K/uL (0-0); Nucleated RBC % (auto) 0.2 %; Platelet Count 358 K/uL (130-400); RDW Coefficient of Variation 13.3 % (11.5-14.5); RDW Standard Deviation 45.7 fL (36.4-46.3); Red Blood Count 4.54 M/uL (4.7-6.1); White Blood Count 11.15 K/uL (4.8-10.8)
[2020-07-18 13:21] LABS: Mean Corpuscular Hgb Conc 33.3 g/dL (32-36)
[2020-07-18 13:30] LABS: Partial Thromboplastin Ratio 0.9; Partial Thromboplastin Time 25.3 Seconds (21.0-31.0)
[2020-07-18] MEDS ORDERED: Heparin IV Low Dose *NO* Bolus IV SCH (14:00)
--- NOTE | 2020-07-18 14:52 | Critical Care Progress Note ---
Date of Service July 18, 2020 Assessment & Plan (1) Pulmonary emboli: (2) Pneumonia due to 2019 novel coronavirus: (3) Respiratory failure: Impression: 59-year-old male admitted with COVID-19 pneumonia and hypoxemic respiratory failure with superimposed right-sided pulmonary emboli. 24-hour events: The patient had an initial pulmonary consult and was elected to proceed with thrombolysis. Unfortunately he had recently received Lovenox so the TPA had to be held until the Lovenox had worn off. He received at this morning. Anticoagulation will be resumed based on protocol. He is remained hemodynamically stable but continues to have a high oxygen requirement. Recommendations: 1. Neurologic: No current issues. Continue to follow clinically. 2. Cardiovascular: Patient is hypertensive. Continue to follow for now. Reluctant to aggressively treat blood pressure in the setting of known pulmonary thromboembolic disease. His troponin was negative. Echocardiogram has been ordered but it will not exchange specialist so would favor waiting until Covid restrictions have cleared. 3. Pulmonary: COVID-19 pneumonia: Continue remdesivir and dexamethasone. Wean oxygen as tolerated. High flow as needed to keep oxygen saturations at or above 88%. Can consider BiPAP as the patient is at risk for sleep disordered breathing given his body habitus. We discussed self pronating which I think would be beneficial for the patient if his oxygen requirement should remain high. Patient has completed TPA at 50 mg for PE in an effort to see if this improves his gas exchange. Anticoagulation with heparin will be initiated once he needs criteria. Given the fact that his PE was associated with COVID-19 pneumonia, would recommend at least 3 to 6 months of anticoagulation although 1 could make a case for indefinite anticoagulation given his morbid obesity. Incentive spirometry may be beneficial given his morbid obesity. 4. Endocrine: Glycemic control per protocol. 5. GI: Okay for the patient to eat from a pulmonary critical care perspective. He is at risk for pulmonary deterioration but appears to be stable over the last 24 hours. 6. Renal: No current issues. Continue to follow clinically. Electrolyte replacement as needed. 7. ID: See comments above regarding COVID-19 pneumonia. He was placed on doxycycline for possible atypical pneumonia which seems reasonable to complete a course. Would add Ceftin for gram-negative coverage as well. Antibiotics for 5 days would be adequate. 8. Heme-onc: No current issues. Patient is critically ill at this point time. We will continue to monitor in the ICU for 24 hours post TPA administration and see whether or not his oxygen requirement improves. Case was discussed with ICU nurse and on multidisciplinary rounds as well as with patient. A total of 47 minutes critical care time was spent in evaluation management stabilization of this patient at this point Admission and Anticipated Discharge Date Admission Date: July 17, 2020 Subjective Patient seen and examined. Discussed with critical care nurse at bedside as well as with patient. He reports that he is doing well. Shortness of breath is about the same. He used CPAP overnight. He is back to high flow oxygen this morning. No chest pain palpitations syncope or presyncope. He is currently receiving TPA for his. No bleeding complications or issues with medication administration to date Review of Systems Review of Systems: All systems reviewed & are unremarkable except as noted in HPI & below Physical Exam Constitutional: WD/WN, vitals as above + obese; no acute distress Eyes: PERRL, conjunctivae normal, anicteric sclerae ENMT: external ear and nose normal, oropharynx normal Respiratory: normal respiratory effort; no respiratory distress Auscultation: + crackles (Faint, right mid and lower lung díaz) Cardiovascular: Rate/Rhythm: regular rate and regular rhythm Vessels: normal peripheral pulses Extremities: + edema (Trace edema BLE) Gastrointestinal (Abdomen): normal bowel sounds, soft, nontender, no hepatosplenomegaly Musculoskeletal: no cyanosis or clubbing, extremities motor strength 5/5 Skin: no rashes, warm and dry Neurologic: PERRL, EOMI, accommodation nl, no face palsy, no dysarthria Psychiatric: A+Ox3, euthymic affect Results & Data Results & Data ([facility]) Vital Signs (Past 12 Hours) Vital Signs Temp Pulse Pulse Resp BP BP Pulse Ox 07/18/20 14:22 36.8 C 77 26 H 143/79 H 91 07/18/20 14:00 79 23 148/86 H 94 07/18/20 12:00 74 31 H 158/116 H 91 07/18/20 11:15 87 26 H 88 L 07/18/20 11:00 90 21 156/90 H 88 L 07/18/20 10:45 91 H 27 H 144/98 H 86 L 07/18/20 10:39 85 18 90 07/18/20 10:30 87 26 H 155/105 H 89 L 07/18/20 10:15 92 H 28 H 164/99 H 90 07/18/20 10:00 89 24 90 07/18/20 09:46 101 H 25 H 153/83 H 77 L 07/18/20 09:45 101 H 23 88 L 07/18/20 09:31 93 H 22 136/63 87 L 07/18/20 09:30 89 24 87 L 07/18/20 09:15 91 H 23 162/95 H 86 L 07/18/20 09:00 93 H 22 152/94 H 90 07/18/20 08:52 87 25 H 168/106 H 88 L 07/18/20 08:07 79 18 91 07/18/20 08:00 74 27 H 154/96 H 92 07/18/20 07:44 75 18 150/97 H 91 07/18/20 07:43 36.8 C 76 25 H 161/88 H 93 07/18/20 07:00 68 30 H 161/88 H 91 07/18/20 06:02 77 23 150/84 H 93 07/18/20 05:02 78 23 127/57 L 93 07/18/20 04:06 61 24 97 07/18/20 04:00 64 23 146/66 H 97 07/18/20 03:18 37.1 C 07/18/20 03:17 73 25 H 140/82 93 Laboratory Results 07/18/20 12:46 07/18/20 04:32 Diagnostic Findings Chest x-ray today showed stable bibasilar infiltrates Coding Level of Care Code Critical Care 1st 30-74 mins Diagnoses Pulmonary emboli I26.99 Acute cor pulmonale presence: unspecified Chronicity: acute Pulmonary embolism type: unspecified Pneumonia due to 2019 novel coronavirus U07.1; J12.89 Respiratory failure J96.01 Chronicity: acute Respiratory failure complication: hypoxia (1) Pulmonary emboli Acute cor pulmonale presence: unspecified Chronicity: acute Pulmonary embolism type: unspecified Qualified Code(s): I26.99 - Other pulmonary embolism without acute cor pulmonale (2) Respiratory failure Chronicity: acute Respiratory failure complication: hypoxia Qualified Code(s): J96.01 - Acute respiratory failure with hypoxia
--- NOTE | 2020-07-18 15:02 | Pharmacy Report ---
Pharmacy Glycemic Short Note 2 - Date of Service July 18, 2020 - Glycemic Short BSG Results (Last 24 hours): 07/17/20 07/17/20 07/17/20 15:19 16:46 20:46 Glucose POC Glucose 322 H* 315 H* 281 H 07/17/20 07/18/20 07/18/20 23:41 03:54 04:32 Glucose 121 H POC Glucose 217 H 125 H 07/18/20 07/18/20 07:07 11:13 Glucose POC Glucose 132 H 208 H OUTPATIENT ANTIDIABETIC REGIMEN: * amaryl 4mg qam * metformin 1000mg BID * A1c: 12.7% ASSESSMENT: * Patient presenting with COVID-19 pneumonia and PEs and hyperglycemia likely stress induced as well as steroid induced (was on prednisone at home) * Patient is receiving 6mg IV dexamethasone daily for COVID-19 pneumonia and did received TPA for PE's, followed by a heparin infusion. * Patient has responded well thus far utilizing 0.3 units/kg NPH to combat steroid effects and a moderate stress Lantus scalae. NovoLog was initiated aggressively and appears to be working well thus far. He is tolerating a diet. PLAN FOR INPATIENT GLYCEMIC CONTROL: * Hold outpatient oral diabetes medications * Basal insulin * Lantus 15 units SQ BID * NPH 40 units SQ qam with dexamethasone * Bolus insulin * NovoLog per scale ACHS or Q6hrs while NPO * Goal Range: Low 110 mg/dL - High 140 mg/dL * Correction Factor: 12 mg/dL/unit * Nutritional / Prandial insulin per carb ratio of 1 unit per 4 grams CHO consumed
[2020-07-18] MEDS: HEPARIN SODIUM/DEXTROSE 25,000 UNITS/500 ML BAG IV SCH (15:12)
[2020-07-18] MEDS: cefUROXime axetil 500 MG TAB PO SCH ×2 (16:48→21:23)
[2020-07-18] MEDS: REMDESIVIR 100 MG in SODIUM CHLORIDE 0.9% 230 ML IV SCH (16:49)
[2020-07-18] MEDS: SODIUM CHLORIDE 0.9% 10ML FLUSH IV SCH (16:54)
[2020-07-18 20:50] LABS: Partial Thromboplastin Time 27.6 Seconds (21.0-31.0)
[2020-07-18] MEDS ORDERED: HEPARIN IV BOLUS 4,500 UNITS in SYRINGE 0 ML IV ONE (21:30)
[2020-07-19 03:46] LABS: Partial Thromboplastin Ratio 1.3; Partial Thromboplastin Time 35.1 Seconds (21.0-31.0)
[2020-07-19 03:50] LABS: Alanine Aminotransferase 19 U/L (12-78); Aspartate Aminotransferase 22 U/L (15-37)
[2020-07-19] MEDS ORDERED: HEPARIN IV BOLUS 4,000 UNITS in SYRINGE 0 ML IV ONE (04:30)
[2020-07-19 07:48] LABS: Albumin Globulin Ratio 0.5 (0.9-2); Albumin Level 2.1 gm/dl (3.4-5.0); BUN Creatinine Ratio 42.5 (10-20); Bilirubin,Total 0.3 mg/dl (0.2-1); Creatinine Clr Calc Pharmacy 172.1 ml/min; Est GFR (African American) 124.9; Est GFR (Non-African American) 107.8; Globulin 4.3 gm/dl (2.5-4.0); Potassium 3.3 mmol/L (3.5-5.1); Total Protein 6.4 gm/dl (6.4-8.2)
[2020-07-19] MEDS: TAMSULOSIN HCL 0.4 MG CAP PO SCH (08:21)
[2020-07-19] MEDS: LOSARTAN POTASSIUM 50 MG TAB PO SCH (08:21)
[2020-07-19] MEDS: DOXYCYCLINE HYCLATE 100 MG CAP PO SCH ×2 (08:21→20:27)
[2020-07-19] MEDS: cefUROXime axetil 500 MG TAB PO SCH ×2 (08:22→20:26)
[2020-07-19] MEDS: INSULIN GLARGINE SOLOSTAR 100 UNITS/ML 3 ML PEN SC SCH ×2 (08:22→20:28)
[2020-07-19] MEDS: INSULIN HUMAN NPH SC SCH (08:23)
[2020-07-19] MEDS: INSULIN ASPART 100 UNITS/ML 3 ML PEN SC SCH ×4 (08:25→20:28)
[2020-07-19] MEDS: dexAMETHasone 6 MG in SYRINGE 0 ML IV SCH (09:07)
[2020-07-19] MEDS: HEPARIN SODIUM/DEXTROSE 25,000 UNITS/500 ML BAG IV SCH (09:33)
[2020-07-19 09:54] LABS: Basophils # (auto) 0.02 K/uL (0-0.2); Basophils % (auto) 0.1 %; Eosinophils # (auto) 0.16 K/uL (0-0.5); Eosinophils % (auto) 1.2 %; Hematocrit (blood only) 41.8 % (42-52); Hemoglobin 13.9 g/dL (14.0-18.0); Immature Granulocytes # (auto) 0.24 K/uL (0.00-0.02); Immature Granulocytes % (auto) 1.8 %; Lymphocytes # (auto) 1.92 K/uL (1.2-3.4); Lymphocytes % (auto) 14.3 %; Mean Corpuscular Hemoglobin 31.2 pg (25-34); Mean Corpuscular Hgb Conc 33.3 g/dL (32-36); Mean Corpuscular Volume 93.9 fL (80-100); Mean Platelet Volume 9.2 fL (7.4-10.4); Monocytes # (auto) 0.55 K/uL (0.11-0.59); Monocytes % (auto) 4.1 %; Neutrophils # (auto) 10.56 K/uL (1.4-6.5); Neutrophils % (auto) 78.5 %; Platelet Count 334 K/uL (130-400); RDW Coefficient of Variation 13.2 % (11.5-14.5); RDW Standard Deviation 45.1 fL (36.4-46.3); Red Blood Count 4.45 M/uL (4.7-6.1); White Blood Count 13.45 K/uL (4.8-10.8)
[2020-07-19 10:13] LABS: Partial Thromboplastin Ratio 1.6
[2020-07-19 10:29] LABS: Magnesium 2.1 mg/dl (1.8-2.4); Phosphorus 3.9 mg/dl (2.5-4.9)
--- NOTE | 2020-07-19 10:53 | Critical Care Progress Note ---
Date of Service July 19, 2020 Assessment & Plan (1) Pneumonia due to 2019 novel coronavirus: (2) Respiratory failure: Impression: 59-year-old male admitted with COVID-19 pneumonia and hyp oxemic respiratory failure with superimposed right-sided pulmonary emboli. 24-hour events: Patient completed TPA infusion and is now been initiated on heparin. Continuing to monitor and dose based on PTT as 10 A levels and dosing regimens are not available at this institution. Recommendations: 1. Neurologic: No current issues. Continue to follow clinically. 2. Cardiovascular: Patient is hypertensive. Continue to follow for now. Antihypertensive regimen per primary provider. Hold echocardiogram as its not likely to acid changer currently. 3. Pulmonary: COVID-19 pneumonia: Continue remdesivir and dexamethasone. Wean oxygen as tolerated. High flow as needed to keep oxygen saturations at or above 88%. Can consider BiPAP as the patient is at risk for sleep disordered breathi ng given his body habitus. We discussed self pronating which I think would be beneficial for the patient if his oxygen requirement should remain high. Patient has completed TPA at 50 mg for PE in an effort to see if this improves his gas exchange. Continue heparin. Could transition to DOAC next 48 hours based on clinical response. given the fact that his PE was associated with COVID-19 pneumonia, would recommend at least 3 to 6 months of anticoagulation although 1 could make a case for indefinite anticoagulation given his morbid obesity. Incentive spirometry 4. Endocrine: Glycemic control per protocol. 5. GI: Okay for the patient to eat from a pulmonary critical care perspective. He is at risk for pulmonary deterioration but appears to be stable over the last 24 hours. 6. Renal: No current issues. Continue to follow clinically. Electrolyte replacement as needed. 7. ID: See comments above regarding COVID-19 pneumonia. He was placed on doxycycline for possible atypical pneumonia which seems reasonable to complete a course. Would add Ceftin for gram-negative coverage as well. Antibiotics for 5 days would be adequate. 8. Heme-onc: No current issues. Patient appears to be stable from a respiratory standpoint so we will transfer out of the ICU to telemetry status under the care of the hospitalist. Should he deteriorate, feel free to contact us for additional assistance. Will follow for an additional day or 2 for pulmonary/PE issues Admission and Anticipated Discharge Date Admission Date: July 17, 2020 Subjective . The patient completed his TPA infusion without significant issues. No bleeding complications noted Patient seen and examined. He states he is doing well. He sitting up at the bedside. Has been on high flow. He used BiPAP overnight. He is not particularly comfortable with the BiPAP. He denies any respiratory problems. No chest pain or palpitations. No significant lower extremity edema. He overall states that he feels he is doing well Review of Systems Review of Systems: Unchanged from prior Physical Exam Constitutional: WD/WN, vitals as above + obese; no acute distress Eyes: PERRL, conjunctivae normal, anicteric sclerae ENMT: external ear and nose normal, oropharynx normal Respiratory: normal respiratory effort; no respiratory distress Auscultation: + crackles (Faint, right mid and lower lung díaz) Cardiovascular: Rate/Rhythm: regular rate and regular rhythm Vessels: normal peripheral pulses Extremities: + edema (Trace edema BLE) Gastrointestinal (Abdomen): normal bowel sounds, soft, nontender, no hepatosplenomegaly Musculoskeletal: no cyanosis or clubbing, extremities motor strength 5/5 Skin: no rashes, warm and dry Neurologic: PERRL, EOMI, accommodation nl, no face palsy, no dysarthria Psychiatric: A+Ox3, euthymic affect Results & Data Results & Data ([facility]) Vital Signs (Past 12 Hours) Vital Signs Temp Pulse Pulse Pulse Resp BP BP 07/19/20 07:40 36.7 C 60 18 159/86 H 07/19/20 07:25 64 24 07/19/20 06:02 80 07/19/20 06:00 73 141/91 H 07/19/20 05:59 76 145/85 H 07/19/20 05:00 67 07/19/20 04:01 71 98/65 L 07/19/20 04:00 71 07/19/20 03:44 36.7 C 67 67 18 110/76 110/76 07/19/20 03:01 65 99/68 L 07/19/20 03:00 68 07/19/20 02:02 66 27 H 07/19/20 02:00 64 127/61 07/19/20 01:02 92 H 07/19/20 01:01 77 101/54 L 07/19/20 01:00 82 07/19/20 00:00 36.7 C 74 147/77 H 07/18/20 23:42 36.5 C 78 78 18 124/65 124/65 07/18/20 23:01 73 139/89 07/18/20 23:00 70 Pulse Ox 07/19/20 07:40 98 07/19/20 07:25 96 07/19/20 06:02 95 07/19/20 06:00 95 07/19/20 05:59 97 07/19/20 05:00 100 07/19/20 04:01 93 07/19/20 04:00 93 07/19/20 03:44 94 07/19/20 03:01 94 07/19/20 03:00 93 07/19/20 02:02 98 07/19/20 02:00 97 07/19/20 01:02 98 07/19/20 01:01 99 07/19/20 01:00 97 07/19/20 00:00 94 07/18/20 23:42 93 07/18/20 23:01 92 07/18/20 23:00 92 Laboratory Results 07/19/20 09:29 07/19/20 05:54 Diagnostic Findings No new films Coding Level of Care Code 66270 Subseq Hosp Care Lvl 3 Diagnoses Pneumonia due to 2019 novel coronavirus U07.1; J12.89 Respiratory failure J96.01 Chronicity: acute Respiratory failure complication: hypoxia (1) Respiratory failure Chronicity: acute Respiratory failure complication: hypoxia Qualified Code(s): J96.01 - Acute respiratory failure with hypoxia
--- NOTE | 2020-07-19 12:28 | Pharmacy Report ---
Pharmacy Glycemic Short Note 2 - Date of Service July 19, 2020 - Glycemic Short BSG Results (Last 24 hours): 07/18/20 07/18/20 07/19/20 16:19 21:37 05:54 Glucose 97 POC Glucose 226 H 164 H 07/19/20 07/19/20 07:19 11:31 Glucose POC Glucose 107 H 208 H OUTPATIENT ANTIDIABETIC REGIMEN: * amaryl 4mg qam * metformin 1000mg BID * A1c: 12.7% ASSESSMENT: 07/19 * Fasting BSG 97-107 this AM with 35 units Lantus + 40 units NPH administered in last 24 hrs. Will titrate back Lantus dose somewhat as FBS less than 100 this AM and we have not yet achieved steady state with this therapy. There may be room to increase NPH dose due to post-prandial hyperglycemia observed during the day. * Post-prandial BSGs elevated yesterday 2 of 3, likely due to wearing off of peak dexamethasone effect later in the day. Will increase NPH dose slightly. 07/18 * Patient presenting with COVID-19 pneumonia and PEs and hyperglycemia likely stress induced as well as steroid induced (was on prednisone at home) * Patient is receiving 6mg IV dexamethasone daily for COVID-19 pneumonia and did received TPA for PE's, followed by a heparin infusion. * Patient has responded well thus far utilizing 0.3 units/kg NPH to combat steroid effects and a moderate stress Lantus scalae. NovoLog was initiated aggressively and appears to be working well thus far. He is tolerating a diet. PLAN FOR INPATIENT GLYCEMIC CONTROL: * Hold outpatient oral diabetes medications * Basal insulin * Lantus 15 units SQ BID * NPH 50 units SQ qam with dexamethasone * Bolus insulin * NovoLog per scale ACHS or Q6hrs while NPO * Goal Range: Low 110 mg/dL - High 140 mg/dL * Correction Factor: 10 mg/dL/unit * Nutritional / Prandial insulin per carb ratio of 1 unit per 3 grams CHO consumed
[2020-07-19] MEDS: REMDESIVIR 100 MG in SODIUM CHLORIDE 0.9% 230 ML IV SCH (15:33)
[2020-07-19] MEDS ORDERED: POTASSIUM CHLORIDE CRTAB 20 MEQ TABCR PO STA (15:47)
[2020-07-19] MEDS ORDERED: ACETAMINOPHEN 325 MG TAB PO PRN (15:48)
[2020-07-19] MEDS: SODIUM CHLORIDE 0.9% 10ML FLUSH IV SCH (17:27)
--- NOTE | 2020-07-19 17:51 | Hospitalist Progress Note ---
Date of Service July 19, 2020 Assessment & Plan (1) Acute respiratory failure with hypoxia: -secondary to COVID-19 pneumonia and acute Pulmonary embolism -Patient presenting from home to ED on 07/17/2020 with reports of worsening shortness of breath x 9 days and was previously diagnosed COVID-19 on 07/13/2020. In the ED, saturating 54% on room air -admission CTA chest: Fairly extensive right-sided pulmonary emboli, Extensive multifocal groundglass consolidation typical for pneumonia -patient is currently on high flow nasal cannula oxygen, titrate oxygen requirements as needed (2) Pulmonary emboli: -Patient has completed TPA at 50 mg for PE in an effort to see if this improves his gas exchange. Continue IV heparin -pulmonary/ICU physician recommended on 07/19/2020: Could transition to NOAC next 48 hours based on clinical response. given the fact that his PE was associated with COVID-19 pneumonia, would recommend at least 3 to 6 months of anticoagulation although one could make a case for indefinite anticoagulation given his morbid obesity. (3) DVT prophylaxis: -management with anticoagulation (4) Pneumonia due to COVID-19 virus: -Patient completed course of azithromycin as an outpatient -was empirically started on IV dexamethasone, IV remdesivir - continue -was empirically started on doxycycline and IV ceftriaxone. as per 07/19/2020 pulmonary/ICU physician that patient can continue Doxycyline and Cefitin and sugged antibiotic for 5 days would be adequate (5) Prolonged QT interval: -admission QTC 528, possibly from recent outpatient use of azithromycin -Avoid QTC prolonging agents -serum potassium 3.3 on 07/19/2020 and patient given oral potassium supplements (6) Diastolic dysfunction: -Echo 2016: Grade 1 diastolic dysfunction -Patient has some mild edema on exam, received Lasix 20mg IV on admission -pulmonary/ICU physician does not assess that echocardiogram needed at this time (7) HTN (hypertension): -continue losartan (8) DM type 2 (diabetes mellitus, type 2): Type 2 diabetes mellitus, uncontrolled -HbA1c 10.4 in October 2019, not on insulin at home, home regimen is metformin and glimepiride which have been held on this admission and substituted with insulin -HbA1c 12.7 on this admission -Given uncontrolled A1c and use of IV steroids, glycemic pharmacy consulted on this admission for insulin management -patient likely will need Insulin on discharge Admission and Anticipated Discharge Date Admission Date: July 17, 2020 Subjective Patient continues to be on high flow nasal cannula but she denies any worse sensation of dyspnea. Patient denies any other symptoms. No acute pain. No dizziness. No nausea. No vomiting. No abdominal pain. No other symptoms on review of systems Review of Systems Review of Systems: All systems reviewed & are unremarkable except as noted in Subjective Physical Exam Constitutional: comfortable Eyes: EOM intact bilaterally ENMT: external ear and nose normal, oropharynx normal Neck: normal visual inspection Respiratory: normal respiratory effort Auscultation: + crackles Gastrointestinal (Abdomen): normal bowel sounds, soft, nontender, no hepatosplenomegaly Musculoskeletal: Head/Neck/Chest: normocephalic and head atraumatic Neurologic: PERRL, EOMI, accommodation nl, no face palsy, no dysarthria Psychiatric: A+Ox3, euthymic affect Results & Data Results & Data ([facility]) Vital Signs (Past 12 Hours) Vital Signs Temp Pulse Pulse Pulse Resp BP BP 07/19/20 15:40 94 H 19 113/79 07/19/20 15:08 75 18 07/19/20 11:30 81 20 07/19/20 11:29 36.7 C 92 H 18 117/81 07/19/20 10:00 36.8 C 83 20 115/78 07/19/20 07:40 36.7 C 60 18 159/86 H 07/19/20 07:25 64 24 07/19/20 06:02 80 07/19/20 06:00 73 141/91 H 07/19/20 05:59 76 145/85 H Pulse Ox 07/19/20 15:40 92 07/19/20 15:08 89 L 07/19/20 11:30 94 07/19/20 11:29 90 07/19/20 10:00 94 07/19/20 07:40 98 07/19/20 07:25 96 07/19/20 06:02 95 07/19/20 06:00 95 07/19/20 05:59 97 (1) Pulmonary emboli Acute cor pulmonale presence: unspecified Chronicity: acute Pulmonary embolism type: unspecified Qualified Code(s): I26.99 - Other pulmonary embolism without acute cor pulmonale
[2020-07-19] MEDS ORDERED: COUGH DROP (SUGAR FREE) LOZ 24 LOZ/1 BOX BUCCAL STA (20:35)
--- NOTE | 2020-07-19 21:42 | Electrocardiogram Report ---
Test Reason : Blood Pressure : / mmHG Vent. Rate : 090 BPM Atrial Rate : 090 BPM P-R Int : 142 ms QRS Dur : 064 ms QT Int : 364 ms P-R-T Axes : 039 004 042 degrees QTc Int : 445 ms Poor data quality, interpretation may be adversely affected Normal sinus rhythm Septal infarct , age undetermined Nonspecific T wave abnormality Abnormal ECG When compared with ECG of 17-JUL-2020 11:18, Nonspecific T wave abnormality, improved in Anterolateral leads QT has shortened Confirmed by Crispin Erickson ([id number]) on 07/19/2020 9:42:05 PM Referred By: REFERRED SELF Confirmed By:Crispin Erickson
[2020-07-20] MEDS: HEPARIN SODIUM/DEXTROSE 25,000 UNITS/500 ML BAG IV SCH (02:43)
[2020-07-20 07:37] LABS: Base Excess VBG -1.8 mEq/L; Oxygen Saturation VBG 69.4 %; pH VBG 7.37 (7.36-7.41)
[2020-07-20 07:56] LABS: Partial Thromboplastin Ratio 1.8
[2020-07-20 08:58] LABS: Albumin Globulin Ratio 0.5 (0.9-2); Albumin Level 2.1 gm/dl (3.4-5.0); BUN Creatinine Ratio 37.9 (10-20); Bilirubin,Total 0.3 mg/dl (0.2-1); Calcium 7.4 mg/dl (8.5-10.1); Creatinine Clr Calc Pharmacy 178.9 ml/min; Est GFR (African American) 126.6; Est GFR (Non-African American) 109.3; Magnesium 2.2 mg/dl (1.8-2.4); Phosphorus 4.3 mg/dl (2.5-4.9); Potassium 3.5 mmol/L (3.5-5.1); Total Protein 6.1 gm/dl (6.4-8.2)
[2020-07-20] MEDS ORDERED: INSULIN HUMAN NPH SC SCH (09:00)
[2020-07-20] MEDS: INSULIN ASPART 100 UNITS/ML 3 ML PEN SC SCH ×4 (09:05→21:59)
[2020-07-20] MEDS: dexAMETHasone 6 MG in SYRINGE 0 ML IV SCH (09:07)
[2020-07-20] MEDS: INSULIN GLARGINE SOLOSTAR 100 UNITS/ML 3 ML PEN SC SCH ×2 (09:07→21:59)
[2020-07-20] MEDS: LOSARTAN POTASSIUM 50 MG TAB PO SCH (09:10)
[2020-07-20] MEDS: TAMSULOSIN HCL 0.4 MG CAP PO SCH (09:10)
[2020-07-20] MEDS: cefUROXime axetil 500 MG TAB PO SCH ×2 (09:10→21:46)
[2020-07-20] MEDS: DOXYCYCLINE HYCLATE 100 MG CAP PO SCH ×2 (09:10→21:46)
--- NOTE | 2020-07-20 11:06 | Hospitalist Progress Note ---
Date of Service July 20, 2020 Assessment & Plan (1) Acute respiratory failure with hypoxia: -secondary to COVID-19 pneumonia and acute Pulmonary embolism -Patient presenting from home to ED on 07/17/2020 with reports of worsening shortness of breath x 9 days and was previously diagnosed COVID-19 on 07/13/2020. In the ED, saturating 54% on room air -admission CTA chest: Fairly extensive right-sided pulmonary emboli, Extensive multifocal groundglass consolidation typical for pneumonia -patient is currently on high flow nasal cannula oxygen, titrate oxygen requirements as needed (2) Pulmonary emboli: -Patient has completed TPA at 50 mg for PE in an effort to see if this improves his gas exchange. Continue IV heparin -pulmonary/ICU physician recommended on 07/19/2020: Could transition to DOAC next 48 hours based on clinical response. given the fact that his PE was associated with COVID-19 pneumonia, would recommend at least 3 to 6 months of anticoagulation although one could make a case for indefinite anticoagulation given his morbid obesity. -07/20/2020: Patient continues to be on high flow nasal cannula but continues to be breathing well subjectively as per patient's report. Patient denies any other symptoms on review of systems. No acute distress. No acute pain. No problems with eating or with bowel movements and urination. Discussed with patient that the combination of COVID and pulmonary embolism likely means that patient's oxygen requirements for some unclear duration of time but at least the goal would be to get patient to simple nasal cannula oxygen levels before considering any role in hospital discharge. Also discussed with patient that based on the pulmonary recommendations to consider transition from heparin IV on 07/21/2020 to perhaps Xarelto or Apixaban or Lovenox - may need to take his large body weight into account, he is 134.4 kg and BMI of 43.8 (3) DVT prophylaxis: -management with anticoagulation (4) Pneumonia due to COVID-19 virus: -Patient completed course of azithromycin as an outpatient -was empirically started on IV dexamethasone, IV remdesivir - continue -was empirically started on doxycycline and IV ceftriaxone. as per 07/19/2020 pulmonary/ICU physician that patient can continue Doxycyline and Cefitin and sugged antibiotic for 5 days would be adequate (5) Prolonged QT interval: -admission QTC 528, possibly from recent outpatient use of azithromycin -Avoid QTC prolonging agents -serum potassium 3.3 on 07/19/2020 and patient given oral potassium supplements (6) Diastolic dysfunction: -Echo 2016: Grade 1 diastolic dysfunction -Patient has some mild edema on exam, received Lasix 20mg IV on admission -pulmonary/ICU physician does not assess that echocardiogram needed at this time (7) HTN (hypertension): -continue losartan (8) DM type 2 (diabetes mellitus, type 2): Type 2 diabetes mellitus, uncontrolled -HbA1c 10.4 in October 2019, not on insulin at home, home regimen is metformin and glimepiride which have been held on this admission and substituted with insulin -HbA1c 12.7 on this admission -Given uncontrolled A1c and use of IV steroids, glycemic pharmacy consulted on this admission for insulin management -patient likely will need Insulin on discharge Admission and Anticipated Discharge Date Admission Date: July 17, 2020 Subjective 07/20/2020: Patient continues to be on high flow nasal cannula but continues to be breathing well subjectively as per patient's report. Patient denies any other symptoms on review of systems. No acute distress. No acute pain. No problems with eating or with bowel movements and urination. Discussed with patient that the combination of COVID and pulmonary embolism likely means that patient's oxygen requirements for some unclear duration of time but at least the goal would be to get patient to simple nasal cannula oxygen levels before considering any role in hospital discharge. Also discussed with patient that based on the pulmonary recommendations to consider transition from heparin IV on 07/21/2020 to perhaps Xarelto or Apixaban or Lovenox - may need to take his large body weight into account, he is 134.4 kg and BMI of 43.8 Review of Systems Review of Systems: All systems reviewed & are unremarkable except as noted in Subjective Physical Exam Constitutional: comfortable Eyes: EOM intact bilaterally ENMT: external ear and nose normal, oropharynx normal Neck: normal visual inspection Respiratory: normal respiratory effort Gastrointestinal (Abdomen): normal bowel sounds, soft, nontender, no hepatosplenomegaly Musculoskeletal: Head/Neck/Chest: normocephalic and head atraumatic Neurologic: PERRL, EOMI, accommodation nl, no face palsy, no dysarthria Psychiatric: A+Ox3, euthymic affect Results & Data Results & Data ([facility]) Vital Signs (Past 12 Hours) Vital Signs Temp Pulse Pulse Resp BP BP Pulse Ox 07/20/20 07:27 36.5 C 72 19 113/65 95 07/20/20 07:15 69 20 94 07/20/20 03:52 36.5 C 63 18 144/88 H 96 07/20/20 03:28 68 22 91 07/20/20 00:00 77 07/19/20 23:32 70 16 95 07/19/20 23:13 36.6 C 74 18 124/89 96 (1) Pulmonary emboli Acute cor pulmonale presence: unspecified Chronicity: acute Pulmonary embolism type: unspecified Qualified Code(s): I26.99 - Other pulmonary embolism without acute cor pulmonale
--- NOTE | 2020-07-20 11:56 | Pulmonology Progress Note ---
Date of Service July 20, 2020 Assessment & Plan (1) Pneumonia due to 2019 novel coronavirus: (2) Respiratory failure: Impression: 59-year-old male admitted with COVID-19 pneumonia and hyp oxemic respiratory failure with superimposed right-sided pulmonary emboli. Patient is status post TPA administration. He remains on Decadron and remdesivir. Recommendations: 1. COVID-19 pneumonia: Continue remdesivir and dexamethasone. Wean oxygen as tolerated. High flow as needed to keep oxygen saturations at or above 88%. Can consider BiPAP as the patient is at risk for sleep disordered breathing given his body habitus. We discussed self pronating which I think would be beneficial for the patient if his oxygen requirement should remain high. 2. Hemodynamically stable PE: Patient has completed TPA at 50 mg for PE in an effort to see if this improves his gas exchange. Continue heparin. Could transition to DOAC next 24 hours based on clinical response. Given the fact that his PE was associated with COVID-19 pneumonia, would recommend at least 3 to 6 months of anticoagulation although 1 could make a case for indefinite anticoagulation given his morbid obesity. Incentive spirometry 3. High probability for sleep apnea: Continue CPAP/BiPAP at night as needed. Recommend outpatient polysomnography. 4. Patient appears relatively stable currently. Pulmonary is available to assist should the patient deteriorate. Otherwise management per the hospitalist service. Please call if we can be of assistance or if there are additional questions Chronicity: acute Respiratory failure complication: hypoxia Qualified Code(s): J96.01 - Acute respiratory failure with hypoxia Admission and Anticipated Discharge Date Admission Date: July 17, 2020 Subjective Electronic medical record reviewed. Physical exam and interview the patient deferred due to COVID-19 restrictions. Review of Systems Review of Systems: Refer to hospitalist note Physical Exam Physical Exam: Exam deferred as the patient is in Covid isolation. Per institutional protocol, refer to physical exam performed by attending physician Results & Data Results & Data ([facility]) Vital Signs (Past 12 Hours) Vital Signs Temp Pulse Pulse Resp BP BP Pulse Ox 07/20/20 11:21 92 H 18 91 07/20/20 11:17 36.5 C 85 18 114/78 93 07/20/20 07:27 36.5 C 72 19 113/65 95 07/20/20 07:15 69 20 94 07/20/20 03:52 36.5 C 63 18 144/88 H 96 07/20/20 03:28 68 22 91 07/20/20 00:00 77 Laboratory Results 07/19/20 09:29 07/20/20 07:08 Diagnostic Findings No new imaging PG Care Time/CCT Total # of Minutes Spent Total Time Spent with Patient: Total time spent is greater than 50% in coordination of care (as documented) at patient's floor/unit and/or counseling patient: Coding Level of Care Code 05882 Subseq Hosp Care Lvl 2 Diagnoses Pneumonia due to 2019 novel coronavirus U07.1; J12.89 Respiratory failure J96.01 Chronicity: acute Respiratory failure complication: hypoxia
[2020-07-20] MEDS: REMDESIVIR 100 MG in SODIUM CHLORIDE 0.9% 230 ML IV SCH (16:55)
[2020-07-20] MEDS: SODIUM CHLORIDE 0.9% 10ML FLUSH IV SCH (18:25)
[2020-07-21] MEDS: HEPARIN SODIUM/DEXTROSE 25,000 UNITS/500 ML BAG IV SCH ×2 (00:26→16:34)
[2020-07-21 07:56] LABS: INR 1.1 (0.9-1.1); Partial Thromboplastin Ratio 1.5; Partial Thromboplastin Time 42.7 Seconds (21.0-31.0); Prothrombin Time 11.5 Seconds (9.0-12.0)
[2020-07-21] MEDS: dexAMETHasone 6 MG in SYRINGE 0 ML IV SCH (08:36)
[2020-07-21] MEDS: DOXYCYCLINE HYCLATE 100 MG CAP PO SCH ×2 (08:37→21:00)
[2020-07-21] MEDS: cefUROXime axetil 500 MG TAB PO SCH ×2 (08:38→20:59)
[2020-07-21] MEDS: TAMSULOSIN HCL 0.4 MG CAP PO SCH (08:38)
[2020-07-21] MEDS: LOSARTAN POTASSIUM 50 MG TAB PO SCH (08:38)
[2020-07-21] MEDS: INSULIN ASPART 100 UNITS/ML 3 ML PEN SC SCH ×4 (08:40→21:05)
[2020-07-21] MEDS: INSULIN GLARGINE SOLOSTAR 100 UNITS/ML 3 ML PEN SC SCH ×2 (09:21→21:04)
[2020-07-21] MEDS: INSULIN HUMAN NPH SC SCH (09:21)
--- NOTE | 2020-07-21 10:03 | Pharmacy Report ---
Pharmacy Glycemic Short Note 2 - Date of Service July 21, 2020 - Glycemic Short BSG Results (Last 24 hours): 07/20/20 07/20/20 07/20/20 11:17 16:20 20:50 POC Glucose 216 H 266 H 255 H 07/21/20 07:09 POC Glucose 117 H OUTPATIENT ANTIDIABETIC REGIMEN: * amaryl 4mg qam * metformin 1000mg BID * A1c: 12.7% ASSESSMENT: 07/21: * Pt has received 168 units of SQ insulin over the past 24hrs * 20 units of basal insulin with Lantus * 98 units of bolus insulin with NovoLog * 50 units of NPH to cover steroid induced hyperglycemia from IV dexamethasone * BSGs [phone] mg/dl * All BSGs elevated with the exception of AM fasting BSG. * No change needed to Lantus. * Post-prandial BSGs elevated secondary to dexamethasone. Will increase NPH dosing and tighten CHO ratio * NPH insulin is used to counteract the hyperglycemic effect of once daily steroids. The rationale for this approach is that the pharmacodynamics profile of NPH, with a peak effect of 4-8hrs and duration of action of 12-16 hrs, mirrors the pharmacodynamics of once daily dexamethasone. NPH should be dosed at the same time that steroid is given * The dose of NPH given is dependent on the steroid dose given * For doses of prednisone 40mg/day or above NPH dose should be 0.4 units/kg; this equals ~ 50 units of NPH. Pt received 50 units yesterday; will increase to 60 units today. * NPH dosing above is given in addition to patients basal insulin needs * Typically, patients will also need rapid-acting insulin with meals 07/19 * Fasting BSG 97-107 this AM with 35 units Lantus + 40 units NPH administered in last 24 hrs. Will titrate back Lantus dose somewhat as FBS less than 100 this AM and we have not yet achieved steady state with this therapy. There may be room to increase NPH dose due to post-prandial hyperglycemia observed during the day. * Post-prandial BSGs elevated yesterday 2 of 3, likely due to wearing off of peak dexamethasone effect later in the day. Will increase NPH dose slightly. 07/18 * Patient presenting with COVID-19 pneumonia and PEs and hyperglycemia likely stress induced as well as steroid induced (was on prednisone at home) * Patient is receiving 6mg IV dexamethasone daily for COVID-19 pneumonia and did received TPA for PE's, followed by a heparin infusion. * Patient has responded well thus far utilizing 0.3 units/kg NPH to combat steroid effects and a moderate stress Lantus scalae. NovoLog was initiated aggressively and appears to be working well thus far. He is tolerating a diet. PLAN FOR INPATIENT GLYCEMIC CONTROL: * Hold outpatient oral diabetes medications * Basal insulin: no change * Lantus 10units SQ BID * Steroid induced hyperglycemia- increase dosing * NPH 60 units SQ qam with dexamethasone * Bolus insulin: tighten CR * NovoLog per scale ACHS or Q6hrs while NPO * Goal Range: Low 110 mg/dL - High 140 mg/dL * Correction Factor: 10 mg/dL/unit * Nutritional / Prandial insulin per carb ratio of 1 unit per 2 grams CHO co nsumed
--- NOTE | 2020-07-21 13:09 | Hospitalist Progress Note ---
Date of Service July 21, 2020 Assessment & Plan (1) Acute respiratory failure with hypoxia: -secondary to COVID-19 pneumonia and acute Pulmonary embolism -Patient presenting from home to ED on 07/17/2020 with reports of worsening shortness of breath x 9 days and was previously diagnosed COVID-19 on 07/13/2020. In the ED, saturating 54% on room air -admission CTA chest: Fairly extensive right-sided pulmonary emboli, Extensive multifocal groundglass consolidation typical for pneumonia -patient had been on high flow nasal cannula oxygen, titrate oxygen requirements as needed -07/21/2020 Patient examined and was being transitioned from high flow nasal cannula to oxymask 9 L/min . Patient denies acute shortness of breath. No chest pain. No nausea. No other symptoms on review of systems (2) Pulmonary emboli: -Patient has completed TPA at 50 mg for PE in an effort to see if this improves his gas exchange. Continue IV heparin -pulmonary/ICU physician recommended on 07/19/2020: Could transition to DOAC next 48 hours based on clinical response. given the fact that his PE was associated with COVID-19 pneumonia, would recommend at least 3 to 6 months of anticoagulation although one could make a case for indefinite anticoagulation given his morbid obesity. -07/21/2020: based on patient's body weights 134.4 kg and BMI of 43.8, his body size for Xarelto or Eliquis are in the browning area of efficacy although not stri ctly contraindicated when he is outpatient. At this time while in the hospital, patient agrees to trial of Lovenox 1 mg/kg q12 hours to be started at 9Pm of 07/21/2020 so that he can off the IV heparin drip. (3) DVT prophylaxis: -management with anticoagulation (4) Pneumonia due to COVID-19 virus: -Patient completed course of azithromycin as an outpatient -was empirically started on IV remdesivir (to be completed on ) and IV dexamethasone 6m daily . continue the IV dexamethasone daily for now -was empirically started on doxycycline and IV ceftriaxone. as per 07/19/2020 pulmonary/ICU physician that patient can continue Doxycyline and Cefitin and sugged antibiotic for 5 days would be adequate (5) Prolonged QT interval: -admission QTC 528, possibly from recent outpatient use of azithromycin -Avoid QTC prolonging agents -serum potassium 3.3 on 07/19/2020 and patient given oral potassium supplements (6) Diastolic dysfunction: -Echo 2016: Grade 1 diastolic dysfunction -Patient has some mild edema on exam, received Lasix 20mg IV on admission -pulmonary/ICU physician does not assess that echocardiogram needed at this time (7) HTN (hypertension): -continue losartan (8) DM type 2 (diabetes mellitus, type 2): Type 2 diabetes mellitus, uncontrolled -HbA1c 10.4 in October 2019, not on insulin at home, home regimen is metformin and glimepiride which have been held on this admission and substituted with insulin -HbA1c 12.7 on this admission -Given uncontrolled A1c and use of IV steroids, glycemic pharmacy consulted on this admission for insulin management -patient likely will need Insulin on discharge Admission and Anticipated Discharge Date Admission Date: July 17, 2020 Subjective Patient examined and was being transitioned from high flow nasal cannula to oxymask 9 L/min . Patient denies acute shortness of breath. No chest pain. No nausea. No other symptoms on review of systems Review of Systems Review of Systems: All systems reviewed & are unremarkable except as noted in Subjective Physical Exam Constitutional: comfortable Eyes: EOM intact bilaterally ENMT: external ear and nose normal, oropharynx normal Neck: normal visual inspection Respiratory: normal respiratory effort Cardiovascular: Rate/Rhythm: regular rate and regular rhythm Gastrointestinal (Abdomen): normal bowel sounds, soft, nontender, no hepatosplenomegaly Musculoskeletal: Head/Neck/Chest: normocephalic and head atraumatic Neurologic: PERRL, EOMI, accommodation nl, no face palsy, no dysarthria Psychiatric: A+Ox3, euthymic affect Results & Data Results & Data ([facility]) Vital Signs (Past 12 Hours) Vital Signs Temp Pulse Resp BP BP Pulse Ox 07/21/20 12:00 88 20 90 07/21/20 11:08 36.6 C 93 H 24 138/68 86 L 07/21/20 08:10 84 20 96 07/21/20 07:10 36.7 C 73 24 137/79 100 07/21/20 03:54 36.8 C 61 18 141/73 H 91 07/21/20 03:43 55 L 16 92 (1) Pulmonary emboli Acute cor pulmonale presence: unspecified Chronicity: acute Pulmonary embolism type: unspecified Qualified Code(s): I26.99 - Other pulmonary embolism without acute cor pulmonale
[2020-07-21] MEDS: REMDESIVIR 100 MG in SODIUM CHLORIDE 0.9% 230 ML IV SCH (17:06)
[2020-07-21] MEDS: SODIUM CHLORIDE 0.9% 10ML FLUSH IV SCH (18:10)
[2020-07-21] MEDS ORDERED: ENOXAPARIN 1 MG/KG SQ SCH (21:00)
[2020-07-21] MEDS: ENOXAPARIN 150 MG/ML SYR SQ SCH (21:02)
[2020-07-22] MEDS: HEPARIN SODIUM/DEXTROSE 25,000 UNITS/500 ML BAG IV SCH ×4 (04:50→11:55)
[2020-07-22 06:48] LABS: Basophils # (auto) 0.01 K/uL (0-0.2); Basophils % (auto) 0.1 %; Eosinophils # (auto) 0.03 K/uL (0-0.5); Eosinophils % (auto) 0.2 %; Hematocrit (blood only) 39.3 % (42-52); Hemoglobin 13.3 g/dL (14.0-18.0); Immature Granulocytes # (auto) 0.25 K/uL (0.00-0.02); Immature Granulocytes % (auto) 2.1 %; Lymphocytes # (auto) 1.71 K/uL (1.2-3.4); Lymphocytes % (auto) 14.2 %; Mean Corpuscular Hemoglobin 31.8 pg (25-34); Mean Corpuscular Hgb Conc 33.8 g/dL (32-36); Mean Platelet Volume 9.4 fL (7.4-10.4); Monocytes # (auto) 0.97 K/uL (0.11-0.59); Monocytes % (auto) 8.1 %; Neutrophils # (auto) 9.07 K/uL (1.4-6.5); Neutrophils % (auto) 75.3 %; Platelet Count 353 K/uL (130-400); RDW Coefficient of Variation 13.3 % (11.5-14.5); RDW Standard Deviation 45.6 fL (36.4-46.3); Red Blood Count 4.18 M/uL (4.7-6.1); White Blood Count 12.04 K/uL (4.8-10.8)
[2020-07-22 07:14] LABS: Albumin Level 2.3 gm/dl (3.4-5.0); BUN Creatinine Ratio 32.6 (10-20); Calcium 8.2 mg/dl (8.5-10.1); Creatinine Clr Calc Pharmacy 179.7 ml/min; Est GFR (African American) 126.6; Est GFR (Non-African American) 109.3; Potassium 4.6 mmol/L (3.5-5.1)
[2020-07-22 07:19] LABS: Albumin Globulin Ratio 0.5 (0.9-2); Bilirubin,Total 0.4 mg/dl (0.2-1); Globulin 4.2 gm/dl (2.5-4.0); Total Protein 6.5 gm/dl (6.4-8.2)
[2020-07-22] MEDS: ENOXAPARIN 150 MG/ML SYR SQ SCH ×2 (08:20→20:45)
[2020-07-22] MEDS: dexAMETHasone 6 MG in SYRINGE 0 ML IV SCH (08:20)
[2020-07-22] MEDS: LOSARTAN POTASSIUM 50 MG TAB PO SCH (08:21)
[2020-07-22] MEDS: TAMSULOSIN HCL 0.4 MG CAP PO SCH (08:21)
[2020-07-22] MEDS: DOXYCYCLINE HYCLATE 100 MG CAP PO SCH ×2 (08:21→20:46)
[2020-07-22] MEDS: cefUROXime axetil 500 MG TAB PO SCH ×2 (08:22→20:47)
[2020-07-22] MEDS: INSULIN GLARGINE SOLOSTAR 100 UNITS/ML 3 ML PEN SC SCH ×2 (08:31→21:05)
[2020-07-22] MEDS: INSULIN HUMAN NPH SC SCH (08:31)
[2020-07-22] MEDS: INSULIN ASPART 100 UNITS/ML 3 ML PEN SC SCH ×4 (08:33→21:05)
--- NOTE | 2020-07-22 11:04 | Pharmacy Report ---
Pharmacy Glycemic Short Note 2 - Date of Service July 22, 2020 - Glycemic Short BSG Results (Last 24 hours): 07/21/20 07/21/20 07/21/20 11:08 16:21 20:20 Glucose POC Glucose 135 H 310 H* 287 H 07/22/20 07/22/20 05:33 07:27 Glucose 129 H POC Glucose 212 H OUTPATIENT ANTIDIABETIC REGIMEN: * amaryl 4mg qam * metformin 1000mg BID * A1c: 12.7% ASSESSMENT: 07/22 * Patient received total of 195 units of insulin yesterday, of which 20 were Lantus, 60 units were NPH to cover steroids * BSGs trending up throughout the day, plan to tighten CR PLAN FOR INPATIENT GLYCEMIC CONTROL: * Hold outpatient oral diabetes medications * Basal insulin: * Lantus 10units SQ BID * Steroid induced hyperglycemia * NPH 60 units SQ qam with dexamethasone * Bolus insulin: tighten CR * NovoLog per scale ACHS or Q6hrs while NPO * Goal Range: Low 110 mg/dL - High 140 mg/dL * Correction Factor: 10 mg/dL/unit * Nutritional / Prandial insulin per carb ratio of 1 unit per 2.5 grams CHO consumed
--- NOTE | 2020-07-22 12:31 | Hospitalist Progress Note ---
Date of Service July 22, 2020 Assessment & Plan (1) Acute respiratory failure with hypoxia: -secondary to COVID-19 pneumonia and acute Pulmonary embolism -Patient presenting from home to ED on 07/17/2020 with reports of worsening shortness of breath x 9 days and was previously diagnosed COVID-19 on 07/13/2020. In the ED, saturating 54% on room air -admission CTA chest: Fairly extensive right-sided pulmonary emboli, Extensive multifocal groundglass consolidation typical for pneumonia -patient had been on high flow nasal cannula oxygen, titrate oxygen requirements as needed -07/21/2020 Patient examined and was being transitioned from high flow nasal cannula to oxymask 9 L/min . Patient denies acute shortness of breath. No chest pain. No nausea. No other symptoms on review of systems -: 07/22/2020 Patient seen and examined while sitting upright on oxy mask around 10 liters/min. he does not feel acute subjective shortness of breath. He reports that he is tolerating the Lovnoex q12 [address] of IV heparin. Patient denies other acute symptoms on review of systems. no chest pain. no palpitations. no dizziness. no headache. no pain anywhere of the body (2) Pulmonary emboli: -Patient has completed TPA at 50 mg for PE in an effort to see if this improves his gas exchange. Continue IV heparin -pulmonary/ICU physician recommended on 07/19/2020: Could transition to DOAC next 48 hours based on clinical response. given the fact that his PE was associated with COVID-19 pneumonia, would recommend at least 3 to 6 months of anticoagulation although one could make a case for indefinite anticoagulation given his morbid obesity. -07/21/2020: based on patient's body weights 134.4 kg and BMI of 43.8, his body size for Xarelto or Eliquis are in the browning area of efficacy although not strictly contraindicated when he is outpatient. At this time while in the hospital, patient agrees to trial of Lovenox 1 mg/kg q12 hours to be started at 9Pm of 07/21/2020 so that he can off the IV heparin drip. -continue current q12 hours Lovenox (3) DVT prophylaxis: -management with anticoagulation (4) Pneumonia due to COVID-19 virus: -Patient completed course of azithromycin as an outpatient -was empirically started on IV remdesivir (to be completed on ) and IV dexamethasone 6m daily . continue the IV dexamethasone daily for now -was empirically started on doxycycline and IV ceftriaxone. as per 07/19/2020 pulmonary/ICU physician that patient can continue Doxycyline and Cefitin and sugged antibiotic for 5 days would be adequate (5) Prolonged QT interval: -admission QTC 528, possibly from recent outpatient use of azithromycin -Avoid QTC prolonging agents -serum potassium 3.3 on 07/19/2020 and patient given oral potassium supplements (6) Diastolic dysfunction: -Echo 2016: Grade 1 diastolic dysfunction -Patient has some mild edema on exam, received Lasix 20mg IV on admission -pulmonary/ICU physician does not assess that echocardiogram needed at this time (7) HTN (hypertension): -continue losartan (8) DM type 2 (diabetes mellitus, type 2): Type 2 diabetes mellitus, uncontrolled -HbA1c 10.4 in October 2019, not on insulin at home, home regimen is metformin and glimepiride which have been held on this admission and substituted with insulin -HbA1c 12.7 on this admission -Given uncontrolled A1c and use of IV steroids, glycemic pharmacy consulted on this admission for insulin management -patient likely will need Insulin on discharge Admission and Anticipated Discharge Date Admission Date: July 17, 2020 Subjective 07/22/2020 Patient seen and examined while sitting upright on oxymask around 10 liters/min. he does not feel acute subjective shortness of breath. He reports that he is tolerating the Lovnoex q[address] of IV heparin. Patient denies other acute symptoms on review of systems. no chest pain. no palpitations. no dizziness. no headache. no pain anywhere of the body Review of Systems Review of Systems: All systems reviewed & are unremarkable except as noted in Subjective Physical Exam Constitutional: comfortable Eyes: EOM intact bilaterally ENMT: external ear and nose normal, oropharynx normal Neck: normal visual inspection Respiratory: normal respiratory effort Cardiovascular: Rate/Rhythm: regular rate and regular rhythm Gastrointestinal (Abdomen): normal bowel sounds, soft, nontender, no hepatosplenomegaly Musculoskeletal: Head/Neck/Chest: normocephalic and head atraumatic Neurologic: PERRL, EOMI, accommodation nl, no face palsy, no dysarthria Psychiatric: A+Ox3, euthymic affect Results & Data Results & Data ([facility]) Vital Signs (Past 12 Hours) Vital Signs Temp Pulse Pulse Resp BP Pulse Ox 07/22/20 11:41 36.5 C 74 18 104/63 97 07/22/20 08:00 56 L 07/22/20 07:19 36.4 C L 60 18 125/82 96 07/22/20 04:34 36.6 C 53 L 20 98/47 L 99 07/22/20 01:56 68 (1) Pulmonary emboli Acute cor pulmonale presence: unspecified Chronicity: acute Pulmonary embolism type: unspecified Qualified Code(s): I26.99 - Other pulmonary embolism without acute cor pulmonale
[2020-07-23] MEDS ORDERED: INSULIN ASPART 100 UNITS/ML 3 ML PEN SC SCH
[2020-07-23] MEDS: dexAMETHasone 6 MG in SYRINGE 0 ML IV SCH (08:26)
[2020-07-23] MEDS: DOXYCYCLINE HYCLATE 100 MG CAP PO SCH ×2 (08:27→20:09)
[2020-07-23] MEDS: TAMSULOSIN HCL 0.4 MG CAP PO SCH (08:27)
[2020-07-23] MEDS: cefUROXime axetil 500 MG TAB PO SCH ×2 (08:28→20:10)
[2020-07-23] MEDS: ENOXAPARIN 150 MG/ML SYR SQ SCH ×2 (08:29→20:10)
[2020-07-23] MEDS: LOSARTAN POTASSIUM 50 MG TAB PO SCH (08:31)
[2020-07-23] MEDS: INSULIN GLARGINE SOLOSTAR 100 UNITS/ML 3 ML PEN SC SCH ×2 (08:31→22:18)
[2020-07-23] MEDS: INSULIN HUMAN NPH SC SCH (08:33)
[2020-07-23] MEDS: INSULIN ASPART 100 UNITS/ML 3 ML PEN SC SCH ×4 (08:34→22:19)
[2020-07-23 08:43] LABS: Basophils # (auto) 0.02 K/uL (0-0.2); Basophils % (auto) 0.1 %; Eosinophils # (auto) 0.04 K/uL (0-0.5); Eosinophils % (auto) 0.2 %; Hematocrit (blood only) 40.9 % (42-52); Hemoglobin 13.6 g/dL (14.0-18.0); Immature Granulocytes # (auto) 0.21 K/uL (0.00-0.02); Immature Granulocytes % (auto) 1.2 %; Lymphocytes # (auto) 2.54 K/uL (1.2-3.4); Lymphocytes % (auto) 14.7 %; Mean Corpuscular Hemoglobin 31.6 pg (25-34); Mean Corpuscular Hgb Conc 33.3 g/dL (32-36); Mean Corpuscular Volume 95.1 fL (80-100); Mean Platelet Volume 9.7 fL (7.4-10.4); Monocytes # (auto) 1.34 K/uL (0.11-0.59); Monocytes % (auto) 7.7 %; Neutrophils # (auto) 13.16 K/uL (1.4-6.5); Neutrophils % (auto) 76.1 %; Platelet Count 353 K/uL (130-400); RDW Coefficient of Variation 13.4 % (11.5-14.5); RDW Standard Deviation 46.1 fL (36.4-46.3); White Blood Count 17.31 K/uL (4.8-10.8)
[2020-07-23 09:32] LABS: Albumin Globulin Ratio 0.6 (0.9-2); Albumin Level 2.4 gm/dl (3.4-5.0); BUN Creatinine Ratio 33.7 (10-20); Bilirubin,Total 0.5 mg/dl (0.2-1); Calcium 8.7 mg/dl (8.5-10.1); Creatinine Clr Calc Pharmacy 178.9 ml/min; Est GFR (African American) 126.6; Est GFR (Non-African American) 109.3; Globulin 4.2 gm/dl (2.5-4.0); Total Protein 6.6 gm/dl (6.4-8.2)
--- NOTE | 2020-07-23 13:49 | Hospitalist Progress Note ---
Date of Service July 23, 2020 Assessment & Plan (1) Acute respiratory failure with hypoxia: -secondary to COVID-19 pneumonia and acute Pulmonary embolism -Patient presenting from home to ED on 07/17/2020 with reports of worsening shortness of breath x 9 days and was previously diagnosed COVID-19 on 07/13/2020. In the ED, saturating 54% on room air -admission CTA chest: Fairly extensive right-sided pulmonary emboli, Extensive multifocal groundglass consolidation typical for pneumonia -patient had been on high flow nasal cannula oxygen, titrate oxygen requirements as needed -07/21/2020 Patient examined and was being transitioned from high flow nasal cannula to oxymask 9 L/min . Patient denies acute shortness of breath. No chest pain. No nausea. No other symptoms on review of systems -07/22/2020: 07/22/2020 Patient seen and examined while sitting upright on oxy mask around 10 liters/min. he does not feel acute subjective shortness of breath. He reports that he is tolerating the Lovenox q[address] of IV heparin. Patient denies other acute symptoms on review of systems. no chest pain. no palpitations. no dizziness. no headache. no pain anywhere of the body -07/23/2020: no acute changes in his subjective status - he feels subjective well and asymptomatic. currently on Oxymask of 9 liters/min. He is tolerating the subcutaneous Lovenox and no complaints of acute pain. (2) Pulmonary emboli: -Patient has completed TPA at 50 mg for PE in an effort to see if this improves his gas exchange. Continue IV heparin -pulmonary/ICU physician recommended on 07/19/2020: Could transition to DOAC next 48 hours based on clinical response. given the fact that his PE was associated with COVID-19 pneumonia, would recommend at least 3 to 6 months of anticoagulation although one could make a case for indefinite anticoagulation given his morbid obesity. -07/21/2020: based on patient's body weights 134.4 kg and BMI of 43.8, his body size for Xarelto or Eliquis are in the brow[place] area of efficacy although not strictly contraindicated when he is outpatient. At this time while in the hospital, patient agrees to trial of Lovenox 1 mg/kg q12 hours to be started at 9Pm of 07/21/2020 so that he can off the IV heparin drip. -continue current q12 hours Lovenox (3) DVT prophylaxis: -management with anticoagulation (4) Pneumonia due to COVID-19 virus: -Patient completed course of azithromycin as an outpatient -was empirically started on IV remdesivir (to be completed on ) and IV dexamethasone 6m daily . continue the IV dexamethasone daily for now -was empirically started on doxycycline and IV ceftriaxone. as per 07/19/2020 pulmonary/ICU physician that patient can continue Doxycyline and Cefitin and suggested antibiotic for 5 days would be adequate- last doses scheduled for 07/24/2020 CPAP/BIPAP qhs: as per pulmonary physician that patient has High probability for sleep apnea, Recommend outpatient polysomnography (5) Prolonged QT interval: -admission QTC 528, possibly from recent outpatient use of azithromycin -Avoid QTC prolonging agents -serum potassium 3.3 on 07/19/2020 and patient given oral potassium supplements (6) Diastolic dysfunction: -Echo 2016: Grade 1 diastolic dysfunction -Patient has some mild edema on exam, received Lasix 20mg IV on admission -pulmonary/ICU physician does not assess that echocardiogram needed at this time (7) HTN (hypertension): -continue losartan (8) DM type 2 (diabetes mellitus, type 2): Type 2 diabetes mellitus, uncontrolled -HbA1c 10.4 in October 2019, not on insulin at home, home regimen is metformin and glimepiride which have been held on this admission and substituted with insulin -HbA1c 12.7 on this admission -Given uncontrolled A1c and use of IV steroids, glycemic pharmacy consulted on this admission for insulin management -patient likely will need Insulin on discharge as per nuclear medicine specialist message on 07/23/2020 "I have been following with Mr. Ortiz. We discussed continue the Metformin (discontinuing Glimepiride) and adding insulin post-discharge given worsening/elevated A1c (12.7%). He is agreeable to start insulin post-discharge. States his takes insulin as well and could help him post-discharge. He has no health insurance so will need a paper prescription to take to [facility] for the insulin. He requests to use vial/syringe. We usually recommend pre-mixed Novolin/ReliOn 70/30 (vial) taken 30 minutes before breakfast and 30 minutes before supper meals for simplicity; however, would check with with pharmacy on plan/dosing at time of discharge. He can obtain a ReliOn glucose meter/supplies over the counter thru [facility] as well." Admission and Anticipated Discharge Date Admission Date: July 17, 2020 Subjective -07/23/2020: no acute changes in his subjective status - he feels subjective well and asymptomatic. currently on Oxymask of 9 liters/min. He is tolerating the subcutaneous Lovenox and no complaints of acute pain. no dizziness. no nausea. no vomiting. no problems with bowel movements or urination. no known bleeding. no other symptoms on review of systems. Review of Systems Review of Systems: All systems reviewed & are unremarkable except as noted in Subjective Physical Exam Constitutional: comfortable Eyes: EOM intact bilaterally ENMT: external ear and nose normal, oropharynx normal Neck: normal visual inspection Respiratory: normal respiratory effort Cardiovascular: Rate/Rhythm: regular rate and regular rhythm Gastrointestinal (Abdomen): normal bowel sounds, soft, nontender, no hepatosplenomegaly Musculoskeletal: Head/Neck/Chest: normocephalic and head atraumatic Neurologic: PERRL, EOMI, accommodation nl, no face palsy, no dysarthria Psychiatric: A+Ox3, euthymic affect Results & Data Results & Data ([facility]) Vital Signs (Past 12 Hours) Vital Signs Temp Pulse Pulse Resp BP BP Pulse Ox 07/23/20 11:58 36.5 C 81 18 114/74 95 07/23/20 07:45 36.5 C 62 18 120/42 L 99 07/23/20 07:00 62 07/23/20 04:16 35.6 C L 65 18 131/79 96 (1) Pulmonary emboli Acute cor pulmonale presence: unspecified Chronicity: acute Pulmonary embolism type: unspecified Qualified Code(s): I26.99 - Other pulmonary embolism without acute cor pulmonale
[2020-07-24] MEDS: INSULIN GLARGINE SOLOSTAR 100 UNITS/ML 3 ML PEN SC SCH ×2 (08:29→21:04)
[2020-07-24] MEDS: TAMSULOSIN HCL 0.4 MG CAP PO SCH (08:30)
[2020-07-24] MEDS: INSULIN ASPART 100 UNITS/ML 3 ML PEN SC SCH ×4 (08:30→21:04)
[2020-07-24] MEDS: LOSARTAN POTASSIUM 50 MG TAB PO SCH (08:30)
[2020-07-24] MEDS: cefUROXime axetil 500 MG TAB PO SCH ×2 (08:30→21:03)
[2020-07-24] MEDS: dexAMETHasone 6 MG in SYRINGE 0 ML IV SCH (08:30)
[2020-07-24] MEDS: ENOXAPARIN 150 MG/ML SYR SQ SCH ×2 (08:30→21:03)
[2020-07-24] MEDS: DOXYCYCLINE HYCLATE 100 MG CAP PO SCH (08:30)
[2020-07-24] MEDS: INSULIN HUMAN NPH SC SCH (08:32)
--- NOTE | 2020-07-24 13:39 | Hospitalist Progress Note ---
Date of Service July 24, 2020 Assessment & Plan (1) Acute respiratory failure with hypoxia: -secondary to COVID-19 pneumonia and acute Pulmonary embolism -Patient presenting from home to ED on 07/17/2020 with reports of worsening shortness of breath x 9 days and was previously diagnosed COVID-19 on 07/13/2020. In the ED, saturating 54% on room air -admission CTA chest: Fairly extensive right-sided pulmonary emboli, Extensive multifocal groundglass consolidation typical for pneumonia -patient had been on high flow nasal cannula oxygen, titrate oxygen requirements as needed -07/21/2020 Patient examined and was being transitioned from high flow nasal cannula to oxymask 9 L/min . Patient denies acute shortness of breath. No chest pain. No nausea. No other symptoms on review of systems -07/22/2020: 07/22/2020 Patient seen and examined while sitting upright on oxy mask around 10 liters/min. he does not feel acute subjective shortness of breath. He reports that he is tolerating the Lovenox q[address] of IV heparin. Patient denies other acute symptoms on review of systems. no chest pain. no palpitations. no dizziness. no headache. no pain anywhere of the body -07/23/2020: no acute changes in his subjective status - he feels subjective well and asymptomatic. currently on Oxymask of 9 liters/min. He is tolerating the subcutaneous Lovenox and no complaints of acute pain. -07/24/2020: Patient on nasal cannula 4 liters/min at rest. Patient feels subjectively well with his breathing. again denies any other symptoms on review of systems. No chest pain, no abdomen pain, no complains of bleeding, no dizziness. no headache, no nausea. no vomiting (2) Pulmonary emboli: -Patient has completed TPA at 50 mg for PE in an effort to see if this improves his gas exchange. Continue IV heparin -pulmonary/ICU physician recommended on 07/19/2020: Could transition to DOAC next 48 hours based on clinical response. given the fact that his PE was associated with COVID-19 pneumonia, would recommend at least 3 to 6 months of anticoagulation although one could make a case for indefinite anticoagulation given his morbid obesity. -07/21/2020: based on patient's body weights 134.4 kg and BMI of 43.8, his body size for Xarelto or Eliquis are in the brow[place] area of efficacy although not strictly contraindicated when he is outpatient. At this time while in the hospital, patient agrees to trial of Lovenox 1 mg/kg q12 hours to be started at 9Pm of 07/21/2020 so that he can off the IV heparin drip. -continue current q12 hours Lovenox (3) DVT prophylaxis: -management with anticoagulation (4) Pneumonia due to COVID-19 virus: -Patient completed course of azithromycin as an outpatient -was empirically started on IV remdesivir (to be completed on ) and IV dexamethasone 6m daily . continue the IV dexamethasone daily for now -was empirically started on doxycycline and IV ceftriaxone. as per 07/19/2020 pulmonary/ICU physician that patient can continue Doxycyline and Cefitin and suggested antibiotic for 5 days would be adequate- last doses scheduled for 07/24/2020 CPAP/BIPAP qhs: as per pulmonary physician that patient has High probability for sleep apnea, Recommend outpatient polysomnography (5) Prolonged QT interval: -admission QTC 528, possibly from recent outpatient use of azithromycin -Avoid QTC prolonging agents -serum potassium 3.3 on 07/19/2020 and patient given oral potassium supplements (6) Diastolic dysfunction: -Echo 2016: Grade 1 diastolic dysfunction -Patient has some mild edema on exam, received Lasix 20mg IV on admission -pulmonary/ICU physician does not assess that echocardiogram needed at this time (7) HTN (hypertension): -continue losartan (8) DM type 2 (diabetes mellitus, type 2): Type 2 diabetes mellitus, uncontrolled -HbA1c 10.4 in October 2019, not on insulin at home, home regimen is metformin and glimepiride which have been held on this admission and substituted with insulin -HbA1c 12.7 on this admission -Given uncontrolled A1c and use of IV steroids, glycemic pharmacy consulted on this admission for insulin management -patient likely will need Insulin on discharge as per clinical staff educator message on 07/23/2020 "I have been following with Mr. Ortiz. We discussed continue the Metformin (discontinuing Glimepiride) and adding insulin post-discharge given worsening/elevated A1c (12.7%). He is agreeable to start insulin post-discharge. States his takes insulin as well and could help him post-discharge. He has no health insurance so will need a paper prescription to take to [facility] for the insulin. He requests to use vial/syringe. We usually recommend pre-mixed Novolin/ReliOn 70/30 (vial) taken 30 minutes before breakfast and 30 minutes before supper meals for simplicity; however, would check with with pharmacy on plan/dosing at time of discharge. He can obtain a ReliOn glucose meter/supplies over the counter thru [facility] as well." Admission and Anticipated Discharge Date Admission Date: July 17, 2020 Subjective 07/24/2020: Patient on nasal cannula 4 liters/min at rest. Patient feels subjectively well with his breathing. again denies any other symptoms on review of systems. No chest pain, no abdomen pain, no complains of bleeding, no dizzine ss. no headache, no nausea. no vomiting Review of Systems Review of Systems: All systems reviewed & are unremarkable except as noted in Subjective Physical Exam Constitutional: comfortable Eyes: EOM intact bilaterally ENMT: external ear and nose normal, oropharynx normal Neck: normal visual inspection Respiratory: normal respiratory effort on nasal cannule 4 liters/min Cardiovascular: Rate/Rhythm: regular rate and regular rhythm Gastrointestinal (Abdomen): normal bowel sounds, soft, nontender, no hepatosplenomegaly Musculoskeletal: Head/Neck/Chest: normocephalic and head atraumatic Neurologic: PERRL, EOMI, accommodation nl, no face palsy, no dysarthria Psychiatric: A+Ox3, euthymic affect Results & Data Results & Data ([facility]) Vital Signs (Past 12 Hours) Vital Signs Temp Pulse Resp BP Pulse Ox 07/24/20 10:58 36.6 C 87 18 97/62 L 92 07/24/20 07:28 36.5 C 62 18 113/74 97 (1) Pulmonary emboli Acute cor pulmonale presence: unspecified Chronicity: acute Pulmonary embolism type: unspecified Qualified Code(s): I26.99 - Other pulmonary embolism without acute cor pulmonale
[2020-07-25 06:19] LABS: Basophils # (auto) 0.01 K/uL (0-0.2); Basophils % (auto) 0.1 %; Eosinophils # (auto) 0.03 K/uL (0-0.5); Eosinophils % (auto) 0.2 %; Hematocrit (blood only) 42.8 % (42-52); Immature Granulocytes # (auto) 0.15 K/uL (0.00-0.02); Immature Granulocytes % (auto) 1.2 %; Lymphocytes # (auto) 2.08 K/uL (1.2-3.4); Lymphocytes % (auto) 16.4 %; Mean Corpuscular Hemoglobin 31.5 pg (25-34); Mean Corpuscular Hgb Conc 32.7 g/dL (32-36); Mean Corpuscular Volume 96.2 fL (80-100); Mean Platelet Volume 9.4 fL (7.4-10.4); Monocytes % (auto) 9.4 %; Neutrophils # (auto) 9.25 K/uL (1.4-6.5); Neutrophils % (auto) 72.7 %; Platelet Count 334 K/uL (130-400); RDW Coefficient of Variation 13.5 % (11.5-14.5); Red Blood Count 4.45 M/uL (4.7-6.1); White Blood Count 12.72 K/uL (4.8-10.8)
[2020-07-25 06:52] LABS: BUN Creatinine Ratio 41.3 (10-20); Calcium 8.5 mg/dl (8.5-10.1); Creatinine Clr Calc Pharmacy 150.5 ml/min; Est GFR (African American) 118.1; Est GFR (Non-African American) 101.9; Potassium 4.6 mmol/L (3.5-5.1)
[2020-07-25] MEDS: TAMSULOSIN HCL 0.4 MG CAP PO SCH (08:42)
[2020-07-25] MEDS: LOSARTAN POTASSIUM 50 MG TAB PO SCH (08:42)
[2020-07-25] MEDS: cefUROXime axetil 500 MG TAB PO SCH (08:43)
[2020-07-25] MEDS: dexAMETHasone 6 MG in SYRINGE 0 ML IV SCH (08:43)
[2020-07-25] MEDS: ENOXAPARIN 150 MG/ML SYR SQ SCH ×2 (08:44→21:09)
[2020-07-25] MEDS: INSULIN GLARGINE SOLOSTAR 100 UNITS/ML 3 ML PEN SC SCH ×2 (08:46→21:07)
[2020-07-25] MEDS: INSULIN ASPART 100 UNITS/ML 3 ML PEN SC SCH ×4 (08:47→21:05)
[2020-07-25] MEDS ORDERED: INSULIN HUMAN NPH SC SCH (09:00)
--- NOTE | 2020-07-25 13:06 | Pharmacy Report ---
Pharmacy Glycemic Short Note 2 - Date of Service July 25, 2020 - Glycemic Short BSG Results (Last 24 hours): 07/24/20 07/24/20 07/25/20 16:08 20:29 05:51 Glucose 136 H POC Glucose 189 H 221 H 07/25/20 07/25/20 07:29 11:02 Glucose POC Glucose 120 H 232 H OUTPATIENT ANTIDIABETIC REGIMEN: * amaryl 4mg qam * metformin 1000mg BID * A1c: 12.7% ASSESSMENT: 07/25 * Patient received 172 units of insulin yesterday, 70 of basal, 102 of prandial/correctional * BSGs [phone] mg/dL * Fasting within goal range this AM- will continue current lantus * Prandial BSGs slightly elevated from previous, will increase NPH this AM 07/22 * Patient received total of 195 units of insulin yesterday, of which 20 were Lantus, 60 units were NPH to cover steroids * BSGs trending up throughout the day, plan to tighten CR PLAN FOR INPATIENT GLYCEMIC CONTROL: * Hold outpatient oral diabetes medications * Basal insulin: * Lantus 10units SQ BID * Steroid induced hyperglycemia * NPH 55 units SQ qam with dexamethasone * Bolus insulin: tighten CR * NovoLog per scale ACHS or Q6hrs while NPO * Goal Range: Low 110 mg/dL - High 140 mg/dL * Correction Factor: 10 mg/dL/unit * Nutritional / Prandial insulin per carb ratio of 1 unit per 2.5 grams CHO consumed
--- NOTE | 2020-07-25 15:47 | Hospitalist Progress Note ---
Date of Service July 25, 2020 Assessment & Plan (1) Acute respiratory failure with hypoxia: -secondary to COVID-19 pneumonia and acute Pulmonary embolism -Patient presenting from home to ED on 07/17/2020 with reports of worsening shortness of breath x 9 days and was previously diagnosed COVID-19 on 07/13/2020. In the ED, saturating 54% on room air -admission CTA chest: Fairly extensive right-sided pulmonary emboli, Extensive multifocal groundglass consolidation typical for pneumonia -patient had been on high flow nasal cannula oxygen, titrate oxygen requirements as needed -07/21/2020 Patient examined and was being transitioned from high flow nasal cannula to oxymask 9 L/min . Patient denies acute shortness of breath. No chest pain. No nausea. No other symptoms on review of systems -07/22/2020: 07/22/2020 Patient seen and examined while sitting upright on oxym ask around 10 liters/min. he does not feel acute subjective shortness of breath. He reports that he is tolerating the Lovenox q12 [address] injections in [address] of IV heparin. Patient denies other acute symptoms on review of systems. no chest pain. no palpitations. no dizziness. no headache. no pain anywhere of the body -07/23/2020: no acute changes in his subjective status - he feels subjective well and asymptomatic. currently on Oxymask of 9 liters/min. He is tolerating the subcutaneous Lovenox and no complaints of acute pain. -07/24/2020: Patient on nasal cannula 4 liters/min at rest. Patient feels subjectively well with his breathing. again denies any other symptoms on review of systems. No chest pain, no abdomen pain, no complains of bleeding, no dizziness. no headache, no nausea. no vomiting 07/25/2020: patient on nasal cannula 5 liters/min at rest so there is really no major changes to his oxygen requirements in last 3 days. he is still subjectively comfortable. His last dose of IV dexamethasone on 07/24/2020. Will have patient on prednisone 40 mg daily for now.his antibiotics have been completed by 07/24/2020. Continuing Lovenox 1 mg/kg q12 hours for now for the pulmonary embolism treatment. An inquiry was made on cost of Eliquis if this were to be considered on discharge (but costs $475 per month). But because at rest, he is not at a lower oxygen requirement, patient not quite ready for hospital discharge yet so the transition from hospital Lovenox injections to an oral formulation can happen at later date. Will repeat CXR. Patient on review of systems denies other problems - no acute pain, no dizziness, no problems with urination or bowel movements (2) Pulmonary emboli: -Patient has completed TPA at 50 mg for PE in an effort to see if this improves his gas exchange. Continue IV heparin -pulmonary/ICU physician recommended on 07/19/2020: Could transition to DOAC next 48 hours based on clinical response. given the fact that his PE was associated with COVID-19 pneumonia, would recommend at least 3 to 6 months of anticoagulation although one could make a case for indefinite anticoagulation given his morbid obesity. -07/21/2020: based on patient's body weights 134.4 kg and BMI of 43.8, his body size for Xarelto or Eliquis are in the browning area of efficacy although not strictly contraindicated when he is outpatient. At this time while in the hospital, patient agrees to trial of Lovenox 1 mg/kg q12 hours to be started at 9Pm of 07/21/2020 so that he can off the IV heparin drip. -continue current q12 hours Lovenox (3) DVT prophylaxis: -management with anticoagulation (4) Pneumonia due to COVID-19 virus: -Patient completed course of azithromycin as an outpatient -was empirically started on IV remdesivir (to be completed on ) and IV dexamethasone 6m daily . continue the IV dexamethasone daily for now -was empirically started on doxycycline and IV ceftriaxone. as per 07/19/2020 pulmonary/ICU physician that patient can continue Doxycyline and Cefitin and suggested antibiotic for 5 days would be adequate- last doses scheduled for 07/24/2020 CPAP/BIPAP qhs: as per pulmonary physician that patient has High probability for sleep apnea, Recommend outpatient polysomnography (5) Prolonged QT interval: -admission QTC 528, possibly from recent outpatient use of azithromycin -Avoid QTC prolonging agents -serum potassium 3.3 on 07/19/2020 and patient given oral potassium supplements (6) Diastolic dysfunction: -Echo 2016: Grade 1 diastolic dysfunction -Patient has some mild edema on exam, received Lasix 20mg IV on admission -pulmonary/ICU physician does not assess that echocardiogram needed at this time (7) HTN (hypertension): -continue losartan (8) DM type 2 (diabetes mellitus, type 2): Type 2 diabetes mellitus, uncontrolled -HbA1c 10.4 in October 2019, not on insulin at home, home regimen is metformin and glimepiride which have been held on this admission and substituted with insulin -HbA1c 12.7 on this admission -Given uncontrolled A1c and use of IV steroids, glycemic pharmacy consulted on this admission for insulin management -patient likely will need Insulin on discharge as per laundry operator message on 07/23/2020 "I have been following with Mr. Ortiz. We discussed continue the Metformin (discontinuing Glimepiride) and adding insulin post-discharge given worsening/elevated A1c (12.7%). He is agreeable to start insulin post-discharge. States his takes insulin as well and could help him post-discharge. He has no health insurance so will need a paper prescription to take to [facility] for the insulin. He requests to use vial/syringe. We usually recommend pre-mixed Novolin/ReliOn 70/30 (vial) taken 30 minutes before breakfast and 30 minutes before supper meals for simplicity; however, would check with with pharmacy on plan/dosing at time of discharge. He can obtain a ReliOn glucose meter/supplies over the counter thru [facility] as well." Admission and Anticipated Discharge Date Admission Date: July 17, 2020 Subjective 07/25/2020: patient on nasal cannula 5 liters/min at rest so there is really no major changes to his oxygen requirements in last 3 days. he is still subjecti vely comfortable. His last dose of IV dexamethasone on 07/24/2020. Will have patient on prednisone 40 mg daily for now.his antibiotics have been completed by 07/24/2020. Continuing Lovenox 1 mg/kg q12 hours for now for the pulmonary embolism treatment. An inquiry was made on cost of Eliquis if this were to be considered on discharge (but costs $475 per month). But because at rest, he is not at a lower oxygen requirement, patient not quite ready for hospital discharge yet so the transition from hospital Lovenox injections to an oral formulation can happen at later date. Will repeat CXR. Patient on review of systems denies other problems - no acute pain, no dizziness, no problems with urination or bowel movements Review of Systems Review of Systems: All systems reviewed & are unremarkable except as noted in Subjective Physical Exam Constitutional: comfortable Eyes: EOM intact bilaterally ENMT: external ear and nose normal, oropharynx normal Neck: normal visual inspection Respiratory: normal respiratory effort Auscultation: + crackles Cardiovascular: Rate/Rhythm: regular rate and regular rhythm Gastrointestinal (Abdomen): normal bowel sounds, soft, nontender, no hepatosplenomegaly Musculoskeletal: Head/Neck/Chest: normocephalic and head atraumatic Neurologic: PERRL, EOMI, accommodation nl, no face palsy, no dysarthria Psychiatric: A+Ox3, euthymic affect Results & Data Results & Data ([facility]) Vital Signs (Past 12 Hours) Vital Signs Temp Pulse Pulse Resp BP Pulse Ox 07/25/20 15:32 80 18 104/77 93 07/25/20 11:43 73 18 121/80 94 07/25/20 08:00 63 07/25/20 07:27 36.3 C L 68 18 119/62 97 07/25/20 04:00 36.9 C 65 19 100/54 L 97 (1) Pulmonary emboli Acute cor pulmonale presence: unspecified Chronicity: acute Pulmonary embolism type: unspecified Qualified Code(s): I26.99 - Other pulmonary embolism without acute cor pulmonale
[2020-07-25] MEDS ORDERED: predniSONE 20 MG TAB PO SCH (16:00)
[2020-07-26 07:06] LABS: Basophils # (auto) 0.01 K/uL (0-0.2); Basophils % (auto) 0.1 %; Eosinophils # (auto) 0.03 K/uL (0-0.5); Eosinophils % (auto) 0.2 %; Hematocrit (blood only) 42.2 % (42-52); Hemoglobin 13.9 g/dL (14.0-18.0); Immature Granulocytes # (auto) 0.17 K/uL (0.00-0.02); Immature Granulocytes % (auto) 1.3 %; Lymphocytes # (auto) 2.17 K/uL (1.2-3.4); Mean Corpuscular Hemoglobin 31.4 pg (25-34); Mean Corpuscular Hgb Conc 32.9 g/dL (32-36); Mean Corpuscular Volume 95.3 fL (80-100); Mean Platelet Volume 9.4 fL (7.4-10.4); Monocytes # (auto) 1.54 K/uL (0.11-0.59); Monocytes % (auto) 11.4 %; Neutrophils # (auto) 9.64 K/uL (1.4-6.5); Platelet Count 318 K/uL (130-400); RDW Coefficient of Variation 13.4 % (11.5-14.5); Red Blood Count 4.43 M/uL (4.7-6.1); White Blood Count 13.56 K/uL (4.8-10.8)
[2020-07-26 07:32] LABS: Albumin Level 2.6 gm/dl (3.4-5.0); BUN Creatinine Ratio 43.9 (10-20); Calcium 8.7 mg/dl (8.5-10.1); Creatinine Clr Calc Pharmacy 175.6 ml/min; Est GFR (African American) 125.8; Est GFR (Non-African American) 108.5; Potassium 4.1 mmol/L (3.5-5.1)
[2020-07-26 07:34] LABS: Albumin Globulin Ratio 0.7 (0.9-2); Bilirubin,Total 0.4 mg/dl (0.2-1); Globulin 3.8 gm/dl (2.5-4.0); Total Protein 6.4 gm/dl (6.4-8.2)
[2020-07-26] MEDS: ENOXAPARIN 150 MG/ML SYR SQ SCH ×2 (08:37→20:15)
[2020-07-26] MEDS: TAMSULOSIN HCL 0.4 MG CAP PO SCH (08:38)
[2020-07-26] MEDS: LOSARTAN POTASSIUM 50 MG TAB PO SCH (08:41)
[2020-07-26] MEDS: INSULIN ASPART 100 UNITS/ML 3 ML PEN SC SCH ×4 (08:42→20:16)
[2020-07-26] MEDS: dexAMETHasone 6 MG in SYRINGE 0 ML IV SCH (08:46)
[2020-07-26] MEDS ORDERED: INSULIN HUMAN NPH SC SCH ×2 (09:00)
--- NOTE | 2020-07-26 14:05 | Pharmacy Report ---
Pharmacy Glycemic Short Note 2 - Date of Service July 26, 2020 - Glycemic Short BSG Results (Last 24 hours): 07/25/20 07/25/20 07/26/20 16:30 20:47 06:08 Glucose 60 L POC Glucose 201 H 200 H 07/26/20 07/26/20 07/26/20 07:20 07:37 08:14 Glucose POC Glucose 59 L* 61 L* 93 07/26/20 11:09 Glucose POC Glucose 254 H OUTPATIENT ANTIDIABETIC REGIMEN: * amaryl 4mg qam * metformin 1000mg BID * A1c: 12.7% ASSESSMENT: 07/26 * Patient received 184 units of insulin yesterday, 75 units of basal * Hypoglycemic on fasting this AM, 55 mg/dL--> held AM dose of lantus, today's lantus dose reduced by 50%. * NPH dose also slightly reduced as well as CR. These may need to be tightened again if prandial BSGs remain elevated 07/25 * Patient received 172 units of insulin yesterday, 70 of basal, 102 of prandial/correctional * BSGs [phone] mg/dL * Fasting within goal range this AM- will continue current lantus * Prandial BSGs slightly elevated from previous, will increase NPH this AM 07/22 * Patient received total of 195 units of insulin yesterday, of which 20 were Lantus, 60 units were NPH to cover steroids * BSGs trending up throughout the day, plan to tighten CR PLAN FOR INPATIENT GLYCEMIC CONTROL: * Hold outpatient oral diabetes medications * Basal insulin: * Lantus 10units SQ HS * Steroid induced hyperglycemia * NPH 45 units SQ qam with dexamethasone * Bolus insulin: tighten CR * NovoLog per scale ACHS or Q6hrs while NPO * Goal Range: Low 110 mg/dL - High 140 mg/dL * Correction Factor: 10 mg/dL/unit * Nutritional / Prandial insulin per carb ratio of 1 unit per 3.5 grams CHO consumed
--- NOTE | 2020-07-26 17:50 | XRay Report ---
SINGLE VIEW CHEST CLINICAL HISTORY: Covid pneumonia. FINDINGS: 2 AP, portable, upright chest radiographs are compared to study dated 07/18/2020 and correl ated with chest CT dated 07/17/2020. The examination is degraded by portable technique and patient ro tation. The cardiomediastinal silhouette is unremarkable. There is mild elevation of the right matt diaphragm. Multifocal airspace consolidation is similar in appearance to the 07/18/2020 examination. Small pleural effusions are suspected. No pneumothorax is seen. The bony thorax is grossly intact. IMPRESSION: Multifocal airspace consolidation is similar in appearance to the 07/18/2020 examination. ACT 112: Negative or not required by law. Electronically signed by: Warren Jose M.D. 07/26/2020 5:48 PM
[2020-07-26] MEDS: INSULIN GLARGINE SOLOSTAR 100 UNITS/ML 3 ML PEN SC SCH (20:17)
--- NOTE | 2020-07-26 20:46 | Hospitalist Progress Note ---
Date of Service July 26, 2020 Assessment & Plan (1) Acute respiratory failure with hypoxia: -secondary to COVID-19 pneumonia and acute Pulmonary embolism -Patient presenting from home to ED on 07/17/2020 with reports of worsening shortness of breath x 9 days and was previously diagnosed COVID-19 on 07/13/2020. In the ED, saturating 54% on room air -admission CTA chest: Fairly extensive right-sided pulmonary emboli, Extensive multifocal groundglass consolidation typical for pneumonia -Gradually weaned off from oxygen mask now down to 5 L of nasal cannula Has completed course of remdesivir, continue dexamethasone day number 9 out of 12 Also has received antibiotics Improving clinically Continue to monitor, wean off oxygen (2) Pulmonary emboli: Per Dr. Kramer's notes: -Patient has completed TPA at 50 mg for PE in an effort to see if this improves his gas exchange. Continue IV heparin -pulmonary/ICU physician recommended on 07/19/2020: Could transition to DOAC next 48 hours based on clinical response. given the fact that his PE was associated with COVID-19 pneumonia, would recommend at least 3 to 6 months of anticoagulation although one could make a case for indefinite anticoagulation given his morbid obesity. -Continue Lovenox every 12 hours (3) DVT prophylaxis: -management with anticoagulation (4) Pneumonia due to COVID-19 virus: CPAP/BIPAP qhs: as per pulmonary physician that patient has High probability for sleep apnea, Recommend outpatient polysomnography (5) Prolonged QT interval: -admission QTC 528, possibly from recent outpatient use of azithromycin -Avoid QTC prolonging agents (6) Diastolic dysfunction: Dr. Ganga Kramer's notes: -Echo 2016: Grade 1 diastolic dysfunction -Patient has some mild edema on exam, received Lasix 20mg IV on admission -pulmonary/ICU physician does not assess that echocardiogram needed at this time (7) HTN (hypertension): -continue losartan (8) DM type 2 (diabetes mellitus, type 2): Dr. Ganga Kramer's notes: Type 2 diabetes mellitus, uncontrolled -HbA1c 10.4 in October 2019, not on insulin at home, home regimen is metformin and glimepiride which have been held on this admission and substituted with insulin -HbA1c 12.7 on this admission -Given uncontrolled A1c and use of IV steroids, glycemic pharmacy consulted on this admission for insulin management -patient likely will need Insulin on discharge as per development educator message on 07/23/2020 "I have been following with Mr. Ortiz. We discussed continue the Metformin (discontinuing Glimepiride) and adding insulin post-discharge given worsening/elevated A1c (12.7%). He is agreeable to start insulin post-discharge. States his takes insulin as well and could help him post-discharge. He has no health insurance so will need a paper prescr iption to take to [facility] for the insulin. He requests to use vial/syringe. We usually recommend pre-mixed Novolin/ReliOn 70/30 (vial) taken 30 minutes before breakfast and 30 minutes before supper meals for simplicity; however, would check with with pharmacy on plan/dosing at time of discharge. He can obtain a ReliOn glucose meter/supplies over the counter thru [facility] as well." Admission and Anticipated Discharge Date Admission Date: July 17, 2020 Subjective Follow-up for COVID-19 pneumonia, acute hypoxic respiratory failure, etc. Seen resting in bed, sitting up, not in distress States he continues to feel improved overall No active dyspnea, no chest pain, no leg pain, no nausea vomiting Comfortable on 5 L of oxygen via nasal cannula No bleeding Review of Systems Review of Systems: All systems reviewed & are unremarkable except as noted in Subjective Physical Exam Physical Exam: General- oriented x 3, not in distress, speaks in sentences with no effort or accessory muscle use Head- atraumatic Eyes- PERRL, EOMI, anicteric ENT- oropharynx clear Neck- supple, no JVD, no adenopathy, no thyromegaly; carotids +2/2, no bruits appreciated Lungs-crackles at the bases, no wheezing Good air entry bilaterally Heart- normal rate, regular rhythm; no murmur, no gallop, no rub appreciated Abdomen- normal bowel sounds, nondistended, soft, nontender, no masses or hepatosplenomegaly Extremities-mild pretibial edema, no calf tenderness; peripheral pulses intact Neuro- alert, oriented x 3; CN 2-12 grossly intact; motor 5/5 bilaterally;sensation 100% on all extremities; no other gross focal neurologic deficits Skin- warm & dry Results & Data Results & Data ([facility]) Vital Signs (Past 12 Hours) Vital Signs Temp Pulse Pulse Resp BP BP Pulse Ox 07/26/20 18:45 67 07/26/20 18:38 36.8 C 86 20 120/66 94 07/26/20 15:13 77 20 114/73 94 07/26/20 12:49 36.8 C 79 20 147/76 H 95 Laboratory Results Laboratory Results - last 24 hr 07/25/20 07/26/20 07/26/20 20:47 06:08 06:08 WBC 13.56 H RBC 4.43 L Hgb 13.9 L Hct 42.2 MCV 95.3 MCH 31.4 MCHC 32.9 RDW Std Deviation 47.0 H RDW Coeff of Angy 13.4 Plt Count 318 MPV 9.4 Immature Gran % (Auto) 1.3 Neut % (Auto) 71.0 Lymph % (Auto) 16.0 [place] % (Auto) 11.4 Eos % (Auto) 0.2 Baso % (Auto) 0.1 Neut # (Auto) 9.64 H Lymph # (Auto) 2.17 [place] # (Auto) 1.54 H Eos # (Auto) 0.03 Baso # (Auto) 0.01 Immature Gran # (Auto) 0.17 H Sodium 136 Potassium 4.1 Chloride 103 Carbon Dioxide 28 Anion Gap 5.0 BUN 27 H Creatinine 0.60 Est Cr Clr Drug Dosing 175.6 Est GFR ( Amer) 125.8 Est GFR (Non-Af Amer) 108.5 BUN/Creatinine Ratio 43.9 H Glucose 60 L POC Glucose 200 H Calcium 8.7 Total Bilirubin 0.4 AST 20 ALT 47 Alkaline Phosphatase 39 L Total Protein 6.4 Albumin 2.6 L Globulin 3.8 Albumin/Globulin Ratio 0.7 L 07/26/20 07/26/20 07/26/20 07:20 07:37 08:14 WBC RBC Hgb Hct MCV MCH MCHC RDW Std Deviation RDW Coeff of Angy Plt Count MPV Immature Gran % (Auto) Neut % (Auto) Lymph % (Auto) [place] % (Auto) Eos % (Auto) Baso % (Auto) Neut # (Auto) Lymph # (Auto) [place] # (Auto) Eos # (Auto) Baso # (Auto) Immature Gran # (Auto) Sodium Potassium Chloride Carbon Dioxide Anion Gap BUN Creatinine Est Cr Clr Drug Dosing Est GFR ( Amer) Est GFR (Non-Af Amer) BUN/Creatinine Ratio Glucose POC Glucose 59 L* 61 L* 93 Calcium Total Bilirubin AST ALT Alkaline Phosphatase Total Protein Albumin Globulin Albumin/Globulin Ratio 07/26/20 07/26/20 07/26/20 11:09 16:09 19:59 WBC RBC Hgb Hct MCV MCH MCHC RDW Std Deviation RDW Coeff of Angy Plt Count MPV Immature Gran % (Auto) Neut % (Auto) Lymph % (Auto) [place] % (Auto) Eos % (Auto) Baso % (Auto) Neut # (Auto) Lymph # (Auto) [place] # (Auto) Eos # (Auto) Baso # (Auto) Immature Gran # (Auto) Sodium Potassium Chloride Carbon Dioxide Anion Gap BUN Creatinine Est Cr Clr Drug Dosing Est GFR ( Amer) Est GFR (Non-Af Amer) BUN/Creatinine Ratio Glucose POC Glucose 254 H 230 H 283 H Calcium Total Bilirubin AST ALT Alkaline Phosphatase Total Protein Albumin Globulin Albumin/Globulin Ratio (1) Pulmonary emboli Acute cor pulmonale presence: unspecified Chronicity: acute Pulmonary embolism type: unspecified Qualified Code(s): I26.99 - Other pulmonary embolism without acute cor pulmonale
[2020-07-27] MEDS: INSULIN ASPART 100 UNITS/ML 3 ML PEN SC SCH ×3 (08:38→17:54)
[2020-07-27] MEDS: LOSARTAN POTASSIUM 50 MG TAB PO SCH (08:38)
[2020-07-27] MEDS: TAMSULOSIN HCL 0.4 MG CAP PO SCH (08:38)
[2020-07-27] MEDS: dexAMETHasone 6 MG in SYRINGE 0 ML IV SCH (08:40)
[2020-07-27] MEDS: ENOXAPARIN 150 MG/ML SYR SQ SCH ×2 (08:40→20:19)
[2020-07-27] MEDS ORDERED: INSULIN HUMAN NPH SC SCH (09:00)
[2020-07-27] MEDS: INSULIN ASPART 100 UNITS/ML VIAL SC SCH ×2 (18:25→20:19)
--- NOTE | 2020-07-27 19:19 | Hospitalist Progress Note ---
Date of Service July 27, 2020 Assessment & Plan (1) Acute respiratory failure with hypoxia: -secondary to COVID-19 pneumonia and acute Pulmonary embolism -Patient presenting from home to ED on 07/17/2020 with reports of worsening shortness of breath x 9 days and was previously diagnosed COVID-19 on 07/13/2020. In the ED, saturating 54% on room air -admission CTA chest: Fairly extensive right-sided pulmonary emboli, Extensive multifocal groundglass consolidation typical for pneumonia - repeat CXR: no significant change -Gradually weaned off from oxygen mask now down to 2 L of nasal cannula Has completed course of remdesivir, continue dexamethasone day number 10 out of 10 Also has received antibiotics Improving clinically Continue to monitor, wean off oxygen (2) Pulmonary emboli: Per Dr. Kramer's notes: -Patient has completed TPA at 50 mg for PE in an effort to see if this improves his gas exchange. Continue IV heparin -pulmonary/ICU physician recommended on 07/19/2020: Could transition to DOAC next 48 hours based on clinical response. given the fact that his PE was associated with COVID-19 pneumonia, would recommend at least 3 to 6 months of anticoagulation although one could make a case for indefinite anticoagulation given his morbid obesity. -Continue Lovenox every 12 hours x 3 months at least (3) DVT prophylaxis: -management with anticoagulation (4) Pneumonia due to COVID-19 virus: CPAP/BIPAP qhs: as per pulmonary physician that patient has High probability for sleep apnea, Recommend outpatient polysomnography (5) Prolonged QT interval: -admission QTC 528, possibly from recent outpatient use of azithromycin -Avoid QTC prolonging agents (6) Diastolic dysfunction: Dr. Ganga Kramer's notes: -Echo 2016: Grade 1 diastolic dysfunction -Patient has some mild edema on exam, received Lasix 20mg IV on admission -pulmonary/ICU physician does not assess that echocardiogram needed at this time - Lasix 20mg IV given for leg edema (7) HTN (hypertension): -continue losartan (8) DM type 2 (diabetes mellitus, type 2): Dr. Ganga Kramer's notes: Type 2 diabetes mellitus, uncontrolled -HbA1c 10.4 in October 2019, not on insulin at home, home regimen is metformin and glimepiride which have been held on this admission and substituted with insulin -HbA1c 12.7 on this admission -Given uncontrolled A1c and use of IV steroids, glycemic pharmacy consulted on this admission for insulin management -patient likely will need Insulin on discharge as per adaptive physical educator message on 07/23/2020 "I have been following with Mr. Ortiz. We discussed continue the Metformin (discontinuing Glimepiride) and adding insulin post-discharge given worsening/elevated A1c (12.7%). He is agreeable to start insulin post-discharge. States his takes insulin as well and could help him post-discharge. He has no health insurance so will need a paper prescription to take to [facility] for the insulin. He requests to use vial/syringe. We usually recommend pre-mixed Novolin/ReliOn 70/30 (vial) taken 30 minutes before breakfast and 30 minutes before supper meals for simplicity; however, would check with with pharmacy on plan/dosing at time of discharge. He can obtain a ReliOn glucose meter/supplies over the counter thru [facility] as well." Disposition possible d/c tomorrow when medically stable Admission and Anticipated Discharge Date Admission Date: July 17, 2020 Subjective ff up for COVID 19 pneumonia, acute hypoxic respiratory failure, PE seen resting in bed, comfortable on 2 L of O2 via nasal cannula states he continues to feel improved no active dyspnea, palpitations, dizziness no chest pain denies other symptoms Review of Systems Review of Systems: All systems reviewed & are unremarkable except as noted in Subjective Physical Exam Physical Exam: General- oriented x 3, not in distress, speaks in sentences with no effort or accessory muscle use Eyes- anicteric Neck- no JVD Lungs- mild rales left base, clear on the right good air entry bilaterally Heart- normal rate, regular rhythm; no murmurs Abdomen- normal bowel sounds, nondistended, soft, nontender Extremities- mild pretibial edema, no calf tenderness Neuro- alert, oriented x 3; no gross focal neurologic deficits Skin- warm & dry Results & Data Results & Data ([facility]) Vital Signs (Past 12 Hours) Vital Signs Temp Pulse Resp BP BP Pulse Ox 07/27/20 15:25 92 H 20 109/70 90 07/27/20 11:24 36.4 C L 81 20 142/67 H 95 07/27/20 07:23 36.7 C 52 L 18 107/48 L 95 (1) Pulmonary emboli Acute cor pulmonale presence: unspecified Chronicity: acute Pulmonary embolism type: unspecified Qualified Code(s): I26.99 - Other pulmonary embolism without acute cor pulmonale
[2020-07-27] MEDS ORDERED: FUROSEMIDE 20 MG in SYRINGE 0 ML IV ONE (19:30)
[2020-07-28 06:51] LABS: BUN Creatinine Ratio 36.6 (10-20); Calcium 8.9 mg/dl (8.5-10.1); Creatinine Clr Calc Pharmacy 153.6 ml/min; Est GFR (African American) 119.5; Est GFR (Non-African American) 103.1; Magnesium 2.5 mg/dl (1.8-2.4); Potassium 4.9 mmol/L (3.5-5.1)
[2020-07-28] MEDS: TAMSULOSIN HCL 0.4 MG CAP PO SCH (08:36)
[2020-07-28] MEDS: ENOXAPARIN 150 MG/ML SYR SQ SCH ×2 (08:36→18:11)
[2020-07-28] MEDS: LOSARTAN POTASSIUM 50 MG TAB PO SCH (08:36)
[2020-07-28] MEDS: INSULIN ASPART 100 UNITS/ML VIAL SC SCH ×3 (08:41→17:40)
[2020-07-28] MEDS ORDERED: INSULIN HUMAN NPH SC SCH (09:00)
--- NOTE | 2020-07-28 13:18 | Pharmacy Report ---
Pharmacy Glycemic Short Note 2 - Date of Service July 28, 2020 - Glycemic Short BSG Results (Last 24 hours): 07/27/20 07/27/20 07/28/20 16:41 19:59 05:35 Glucose 112 H POC Glucose 89 154 H 07/28/20 07/28/20 07:33 11:25 Glucose POC Glucose 152 H 219 H OUTPATIENT ANTIDIABETIC REGIMEN: * amaryl 4mg qam * metformin 1000mg BID * A1c: 12.7% ASSESSMENT: 07/28 * Patient received 100 units of insulin yesterday; 60 units of NPH, 40 of correctional/prandial * BSGs improved; steroids discontinued today. Therefore reduced NPH dose to 20 units this morning as patient may still have some steroid effect, however did loosen the CF/CR to weight based stress of 3. * Fasting improved today 152 mg/dL with no lantus given yesterday, had previously been low. 07/26 * Patient received 184 units of insulin yesterday, 75 units of basal * Hypoglycemic on fasting this AM, 55 mg/dL--> held AM dose of lantus, today's lantus dose reduced by 50%. * NPH dose also slightly reduced as well as CR. These may need to be tightened again if prandial BSGs remain elevated 07/25 * Patient received 172 units of insulin yesterday, 70 of basal, 102 of prandial/correctional * BSGs [phone] mg/dL * Fasting within goal range this AM- will continue current lantus * Prandial BSGs slightly elevated from previous, will increase NPH this AM 07/22 * Patient received total of 195 units of insulin yesterday, of which 20 were Lantus, 60 units were NPH to cover steroids * BSGs trending up throughout the day, plan to tighten CR PLAN FOR INPATIENT GLYCEMIC CONTROL: * Hold outpatient oral diabetes medications * Basal insulin: * NPH 20 units --> decrease to 15 units tomorrow * Bolus insulin: tighten CR * NovoLog per scale ACHS or Q6hrs while NPO * Goal Range: Low 110 mg/dL - High 140 mg/dL * Correction Factor: 15 mg/dL/unit * Nutritional / Prandial insulin per carb ratio of 1 unit per 6 grams CHO consumed RECOMMENDATIONS ON DISCHARGE Patient's A1c 12.7%, per conversation with certified adaptive physical educator patient would be willing to start on 70/30 insulin outpatient, continuing metformin and discontinuing amaryl. Patient has been on steroids most of this admission and therefore higher insulin needs, therefore will recommend conservative initiation of 70/30 with total daily dose ~.25 units/kg divided as 20 units with breakfast and 10 units with dinner. This can be titrated as needed by outpatient provider.
--- NOTE | 2020-07-28 17:27 | Hospitalist Progress Note ---
Date of Service July 28, 2020 Assessment & Plan (1) Acute respiratory failure with hypoxia: -secondary to COVID-19 pneumonia and acute Pulmonary embolism -Patient presenting from home to ED on 07/17/2020 with reports of worsening shortness of breath x 9 days and was previously diagnosed COVID-19 on 07/13/2020. In the ED, saturating 54% on room air -admission CTA chest: Fairly extensive right-sided pulmonary emboli, Extensive multifocal groundglass consolidation typical for pneumonia - repeat CXR: no significant change -Gradually weaned off from oxygen mask now down to 2 L of nasal cannula Has completed course of remdesivir 5 days, continue dexamethasone 10 days Also has received antibiotics Improved clinically discharge on oxygen 2 liter at rest, 6 L with ambulation (2) Pulmonary emboli: Per Dr. Kramer's notes: -Patient has completed TPA at 50 mg for PE in an effort to see if this improves his gas exchange. Continue IV heparin -pulmonary/ICU physician recommended on 07/19/2020: Could transition to DOAC next 48 hours based on clinical response. given the fact that his PE was associated with COVID-19 pneumonia, would recommend at least 3 to 6 months of anticoagulation although one could make a case for indefinite anticoagulation given his morbid obesity. Patient was given Lovenox every 12 hours while admitted Discharged on Eliquis 10 mg twice daily x1 week then 5 mg twice daily as per Admissions Evaluator, would recommend at least 3 to 6 months of anticoagulation although one could make a case for indefinite anticoagulation given his morbid obesity. May need to be referred to sail repairer (3) Pneumonia due to COVID-19 virus: CPAP/BIPAP qhs: as per pulmonary physician that patient has High probability for sleep apnea, Recommend outpatient polysomnography (4) Prolonged QT interval: -admission QTC 528, possibly from recent outpatient use of azithromycin -Avoid QTC prolonging agents (5) Diastolic dysfunction: Dr. Ganga Kramer's notes: -Echo 2016: Grade 1 diastolic dysfunction -Patient has some mild edema on exam, received Lasix 20mg IV on admission -pulmonary/ICU physician does not assess that echocardiogram needed at this time -Resume as needed Lasix p.o. (6) HTN (hypertension): -continue losartan (7) DM type 2 (diabetes mellitus, type 2): Dr. Ganga Kramer's notes: Type 2 diabetes mellitus, uncontrolled -HbA1c 10.4 in October 2019, not on insulin at home, home regimen is metformin and glimepiride which have been held on this admission and substituted with insulin -HbA1c 12.7 on this admission -Given uncontrolled A1c and use of IV steroids, glycemic pharmacy consulted on this admission for insulin management -patient likely will need Insulin on discharge as per gut sorter message on 07/23/2020 "I have been following with Mr. Ortiz. We discussed continue the Metformin (discontinuing Glimepiride) and adding insulin post-discharge given worsening/elevated A1c (12.7%). He is agreeable to start insulin post-discharge. States his takes insulin as well and could help him post-discharge. He has no health insurance so will need a paper prescription to take to [facility] for the insulin. He requests to use vial/syringe. We usually recommend pre-mixed Novolin/ReliOn 70/30 (vial) taken 30 minutes before breakfast and 30 minutes before supper meals for simplicity; however, would check with with pharmacy on plan/dosing at time of discharge. He can obtain a ReliOn glucose meter/supplies over the counter thru [facility] as well." --Discharged on: Novolin 70/30 twice daily Continue Metformin, discontinue glimepiride --Follow-up with PCP closely Disposition DC home Follow-up with PCP in 1 week Admission and Anticipated Discharge Date Admission Date: July 17, 2020 Subjective ff up for COVID 19 pneumonia seen sitting up in bed, comfortable in good spirits states he feels much better overall no SOB while on NC no cough, chest pain, palpitations, dizziness no other symptoms states that he is ready and would like to be discharged Review of Systems Review of Systems: All systems reviewed & are unremarkable except as noted in Subjective Physical Exam Physical Exam: General- oriented x 3, not in distress, speaks in sentences with no effort or accessory muscle use Eyes- anicteric Neck- no JVD Lungs- clear breath sounds bilaterally, no rales/wheezes Heart- normal rate, regular rhythm; no murmurs Abdomen- normal bowel sounds, nondistended, soft, nontender Extremities- mild pretibial edema, no calf tenderness no erythema/warmth Neuro- alert, oriented x 3; no gross focal neurologic deficits Skin- warm & dry Results & Data Results & Data ([facility]) Vital Signs (Past 12 Hours) Vital Signs Temp Pulse Pulse Pulse Pulse Pulse Pulse 07/28/20 15:43 36.6 C 07/28/20 15:33 95 H 07/28/20 15:07 36.6 C 07/28/20 12:31 112 H 105 H 112 H 102 H 114 H 07/28/20 10:47 36.6 C 07/28/20 07:35 76 07/28/20 07:29 36.8 C 07/28/20 05:28 36.6 C Pulse Pulse Pulse Pulse Resp Resp Resp 07/28/20 15:43 92 H 97 H 20 07/28/20 15:33 07/28/20 15:07 97 H 20 07/28/20 12:31 102 H 98 H 18 20 07/28/20 10:47 98 H 20 07/28/20 07:35 07/28/20 07:29 68 18 07/28/20 05:28 62 20 Resp Resp Resp Resp Resp BP BP 07/28/20 15:43 105/70 113/76 07/28/20 15:33 07/28/20 15:07 113/76 07/28/20 12:31 20 22 20 20 18 07/28/20 10:47 110/69 07/28/20 07:35 07/28/20 07:29 105/70 07/28/20 05:28 114/60 Pulse Ox Pulse Ox Pulse Ox Pulse Ox Pulse Ox Pulse Ox Pulse Ox 07/28/20 15:43 93 07/28/20 15:33 07/28/20 15:07 93 07/28/20 12:31 90 87 L 88 L 91 88 L 91 07/28/20 10:47 92 07/28/20 07:35 07/28/20 07:29 97 07/28/20 05:28 96 Pulse Ox 07/28/20 15:43 07/28/20 15:33 07/28/20 15:07 07/28/20 12:31 86 L 07/28/20 10:47 07/28/20 07:35 07/28/20 07:29 07/28/20 05:28 (1) Pulmonary emboli Acute cor pulmonale presence: unspecified Chronicity: acute Pulmonary embolism type: unspecified Qualified Code(s): I26.99 - Other pulmonary embolism without acute cor pulmonale
[2020-07-29] MEDS ORDERED: INSULIN HUMAN NPH SC SCH (09:00)
--- NOTE | 2020-07-31 18:14 | Discharge Summary ---
Date of Service July 31, 2020 Admission HPI Per Admitting Provider 59-year-old male with PMH DM type II, HTN, diastolic dysfunction, and other problems to below who presents to the ED for evaluation of shortness of breath. Patient tested positive for COVID-19 on 07/13. He was prescribed tapering dose of prednisone and Z-Ketan. Patient reports progressive worsening shortness of breath. He had shortness of breath with minimal exertion this morning. He reports a nonproductive cough. Patient had diarrhea at the beginning of his illness, he reports that has now resolved. Appetite has been poor at times. Denies nausea, vomiting, abdominal pain. No fevers or chills. Denies chest pain and palpitations. No lightheadedness, dizziness, diaphoresis, syncopal events. No urinary symptoms. In the ED, patient was saturating 54% on room air, currently requiring 6 L of oxygen via nasal cannula to maintain saturation of 93%. CXR shows multifocal pneumonia. Patient was given dexamethasone 6 mg IV. Admission Exam Per Admitting Provider Constitutional: WD/WN, vitals as above + obese; no acute distress Eyes: PERRL, conjunctivae normal, anicteric sclerae ENMT: external ear and nose normal, oropharynx normal Respiratory: normal respiratory effort; no respiratory distress Auscultation: + crackles (Faint, right mid and lower lung díaz) Cardiovascular: Rate/Rhythm: regular rate and regular rhythm Vessels: normal peripheral pulses Extremities: + edema (Trace edema BLE) Gastrointestinal (Abdomen): normal bowel sounds, soft, nontender, no hepatosplenomegaly Musculoskeletal: no cyanosis or clubbing, extremities motor strength 5/5 Skin: no rashes, warm and dry Neurologic: PERRL, EOMI, accommodation nl, no face palsy, no dysarthria Psychiatric: A+Ox3, euthymic affect Principal Diagnosis COVID-19 PNEUMONIA, ACUTE HYPOXEMIC RESPIRATORY FAILURE, ACUTE BILATERAL PULMONARY EMBOLISM Discharge Exam General- oriented x 3, not in distress, speaks in sentences with no effort or accessory muscle use Eyes- anicteric Neck- no JVD Lungs- clear breath sounds bilaterally, no rales/wheezes Heart- normal rate, regular rhythm; no murmurs Abdomen- normal bowel sounds, nondistended, soft, nontender Extremities- mild pretibial edema, no calf tenderness no erythema/warmth Neuro- alert, oriented x 3; no gross focal neurologic deficits Skin- warm & dry Discharge Data Allergies Allergy/AdvReac Type Severity Reaction Status Date / Time No Known Allergies Allergy Unverified 07/17/20 11:54 Consultations 07/17/20 12:15 ED Decision to Admit Stat 07/17/20 15:56 Consult Pulmonology Routine Ordered Studies 07/17/20 13:28 CT angio chest PE protocol Urgent Diabetes Follow up Diabetes Follow-up Needed for HgbA1c >9% Hospital Course (1) Acute respiratory failure with hypoxia: -secondary to COVID-19 pneumonia and acute Pulmonary embolism -Patient presenting from home to ED on 07/17/2020 with reports of worsening shortness of breath x 9 days and was previously diagnosed COVID-19 on 07/13/2020. In the ED, saturating 54% on room air -admission CTA chest: Fairly extensive right-sided pulmonary emboli, Extensive multifocal groundglass consolidation typical for pneumonia - repeat CXR: no significant change -Gradually weaned off from oxygen mask now down to 2 L of nasal cannula Has completed course of remdesivir 5 days, continue dexamethasone 10 days Also has received antibiotics Improved clinically discharge on oxygen 2 liter at rest, 6 L with ambulation (2) Pulmonary emboli: Per Dr. Kramer's notes: -Patient has completed TPA at 50 mg for PE in an effort to see if this improves his gas exchange. Continue IV heparin -pulmonary/ICU physician recommended on 07/19/2020: Could transition to DOAC next 48 hours based on clinical response. given the fact that his PE was associated with COVID-19 pneumonia, would recommend at least 3 to 6 months of anticoagulation although one could make a case for indefinite anticoagulation given his morbid obesity. Patient was given Lovenox every 12 hours while admitted Discharged on Eliquis 10 mg twice daily x1 week then 5 mg twice daily as per Hand Decorator, would recommend at least 3 to 6 months of anticoagulation although one could make a case for indefinite anticoagulation given his morbid obesity. May need to be referred to geriatric psychiatrist (3) Pneumonia due to COVID-19 virus: CPAP/BIPAP qhs: as per pulmonary physician that patient has High probability for sleep apnea, Recommend outpatient polysomnography (4) Prolonged QT interval: -admission QTC 528, possibly from recent outpatient use of azithromycin -Avoid QTC prolonging agents (5) Diastolic dysfunction: Dr. Ganga Kramer's notes: -Echo 2016: Grade 1 diastolic dysfunction -Patient has some mild edema on exam, received Lasix 20mg IV on admission -pulmonary/ICU physician does not assess that echocardiogram needed at this time -Resume as needed Lasix p.o. (6) Hepatomegaly: with severe hepatic steatosis --Seen on CT chest --Further evaluation, management and follow-up as noted (7) HTN (hypertension): -continue losartan (8) DM type 2 (diabetes mellitus, type 2): Dr. Ganga Kramer's notes: Type 2 diabetes mellitus, uncontrolled -HbA1c 10.4 in October 2019, not on insulin at home, home regimen is metformin and glimepiride which have been held on this admission and substituted with insulin -HbA1c 12.7 on this admission -Given uncontrolled A1c and use of IV steroids, glycemic pharmacy consulted on this admission for insulin management -patient likely will need Insulin on discharge as per beach expert message on 07/23/2020 "I have been following with Mr. Ortiz. We discussed continue the Metformin (discontinuing Glimepiride) and adding insulin post-discharge given worsening/elevated A1c (12.7%). He is agreeable to start insulin post-discharge. States his takes insulin as well and could help him post-discharge. He has no health insurance so will need a paper p rescription to take to [facility] for the insulin. He requests to use vial/syringe. We usually recommend pre-mixed Novolin/ReliOn 70/30 (vial) taken 30 minutes before breakfast and 30 minutes before supper meals for simplicity; however, would check with with pharmacy on plan/dosing at time of discharge. He can obtain a ReliOn glucose meter/supplies over the counter thru [facility] as well." --Discharged on: Novolin 70/30 twice daily Continue Metformin, discontinue glimepiride --Follow-up with PCP closely Disposition DC home Follow-up with PCP in 1 week Total Time Total Time Spent Total Time Spent (In Minutes): > 30 minutes Discharge Plan Discharge Items Patient Disposition: Home - Self-Care Reason For Visit: COVID Discharge Diagnosis: Acute respiratory failure with hypoxia secondary to COVID-19 pneumonia and acute Pulmonary embolism Type 2 diabetes mellitus, uncontrolled HTN (hypertension) Non-emergency contact: Primary Care Provider Call non-emergency contact if: you have any medication questions, your symptoms worsen and you have a fever Follow-up/Referrals: Dimitri Lu MD [Primary Care Provider] - 08/01/20 11:20 am (Date & Time 08/01/2020 11:20 AM Provider Dimitri Lu MD [facility] PLEASE NOTE: YOUR HOSPITAL DISCHARGE FOLLOW UP IS A TELEVIDEO APPOINTMENT. PLEASE FOLLOW THE DIRECTIONS IN THE EMAIL THAT YOU WILL RECEIVE. IF YOU HAVE ANY QUESTIONS OR NEED TO CHANGE THE APPOINTMENT, PLEASE CALL ) Diet: Carb Consistent or DM2 and Heart Healthy Addtl Attending Provider Instructions: Please review your new medication list and follow instructions carefully. Your new medications include: Eliquis- blood thinner for treatment of clots in the lungs Novolin 70/30- insulin for diabetes treatment If you sustain any head injury, please proceed to the ER immediately for evaluation. If you have any bleeding, please call your physician immediately for advice. Call your primary care physician or return to the ER immediately if you have any worsening of symptoms, shortness of breath, chest pain, weakness, leg swelling, fever/chills. Follow up with your primary care physician as outlined above. You need to isolate for another 10 days. Please discuss with your primary care physician on your follow up when you can discontinue isolation. Home Isolation COVID-19 Instructions The following information about Home Isolation is from the CDC Website: https://www.cdc.gov/coronavirus/2019-ncov/hcp/qhcylsqz-lzjblsm-ybmcsy.html Stay home except to get medical care People who are mildly ill with COVID-19 are able to isolate at home during their illness. You should restrict activities outside your home, except for getting medical care. Do not go to work, school, or public areas. Avoid using public transportation, ride-sharing, or taxis. Separate yourself from other people and animals in your home People: As much as possible, you should stay in a specific room and away from other people in your home. Also, you should use a separate bathroom, if available. Animals: You should restrict contact with pets and other animals while you are sick with COVID-19, just like you would around other people. Although there have not been reports of pets or other animals becoming sick with COVID-19, it is still recommended that people sick with COVID-19 limit contact with animals until more information is known about the virus. When possible, have another member of your household care for your animals while you are sick. If you are sick with COVID-19, avoid contact with your pet, including petting, snuggling, being kissed or licked, and sharing food. If you must care for your pet or be around animals while you are sick, wash your hands before and after you interact with pets and wear a face mask. Call ahead before visiting your doctor If you have a medical appointment, call the healthcare provider and tell them that you have or may have COVID-19. This will help the healthcare providers office take steps to keep other people from getting infected or exposed. Wear a face mask You should wear a face mask when you are around other people (e.g., sharing a room or vehicle) or pets and before you enter a healthcare providers office. If you are not able to wear a face mask (for example, because it causes trouble breathing), then people who live with you should not stay in the same room with you, or they should wear a face mask if they enter your room. Cover your coughs and sneezes Cover your mouth and nose with a tissue when you cough or sneeze. Throw used tissues in a lined trash can. Immediately wash your hands with soap and water for at least 20 seconds or, if soap and water are not available, clean your hands with an alcohol-based hand monument installer that contains at least 60% alcohol. Clean your hands often Wash your hands often with soap and water for at least 20 seconds, especially after blowing your nose, coughing, or sneezing; going to the bathroom; and before eating or preparing food. If soap and water are not readily available, use an alcohol-based hand monument installer with at least 60% alcohol, covering all surfaces of your hands and rubbing them together until they feel dry. Soap and water are the best option if hands are visibly dirty. Avoid touching your eyes, nose, and mouth with unwashed hands. Avoid sharing personal household items You should not share dishes, drinking glasses, cups, eating utensils, towels, or bedding with other people or pets in your home. After using these items, they should be washed thoroughly with soap and water. Clean all high-touch surfaces everyday High touch surfaces include counters, tabletops, doorknobs, bathroom fixtures, toilets, phones, keyboards, tablets, and bedside tables. Also, clean any surf aces that may have blood, stool, or body fluids on them. Use a household cleaning spray or wipe, according to the label instructions. Labels contain instructions for safe and effective use of the cleaning product including precautions you should take when applying the product, such as wearing gloves and making sure you have good ventilation during use of the product. Monitor your symptoms Seek prompt medical attention if your illness is worsening (e.g., difficulty breathing).Beforeseeking care, call your healthcare provider and tell them tank t you have, or are being evaluated for, COVID-19. Put on a face mask before you enter the facility. These steps will help the healthcare providers office to keep other people in the office or waiting room from getting infected or exposed. Ask your healthcare provider to call the local or state health department. Persons who are placed under active monitoring or facilitated self- monitoring should follow instructions provided by their local health department or occupational health professionals, as appropriate. When working with your local health department check their available hours. If you have a medical emergency and need to call 911, notify the dispatch personnel that you have, or are being evaluated for COVID-19. If possible, put on a face mask before emergency medical services arrive. Discontinuing home isolation Patients with confirmed COVID-19 should remain under home isolation precautions until the risk of secondary transmission to others is thought to be low. The decision to discontinue home isolation precautions should be made on a [id number] basis, in consultation with healthcare providers and [facility] and local health departments. Addtl Amr Physician Provider Instructions: as per pulmonary physician that patient has High probability for sleep apnea, Recommend outpatient polysomnography Pending Studies at Discharge: Yes Studies:: repeat bloodwork including CBC and BMP Stand-Alone Forms: My [facility], Smoking Cessation Medications and DC Order Prescriptions: New Novolin 70/30 U-100 Insulin 100 unit/mL (70-30) suspension 10 unit subcut UD Qty: 100 RF: 2 Eliquis 5 mg tablet 5 mg PO UD Qty: 70 RF: 2 multivitamin Tablet 1 tab PO DAILY Qty: 60 RF: 2 Continued ascorbic acid (vitamin C) [Vitamin C] 1,000 mg Tablet 1,000 mg PO QAM RF: 0 echinacea 400 mg Capsule 400 mg PO QAM RF: 0 loperamide 2 mg Tablet 2 mg PO Q6H PRN (Reason: Diarrhea) RF: 0 tamsulosin [Flomax] 0.4 mg Capsule 0.4 mg PO QAM RF: 0 zinc 50 mg Tablet 50 mg PO QAM RF: 0 cholecalciferol (vitamin D3) [Vitamin D3] 10 mcg (400 unit) Tablet 10 mcg PO QAM RF: 0 losartan 50 mg tablet 50 mg PO DAILY RF: 0 furosemide 40 mg Tablet 40 mg PO DAILY PRN (Reason: Edema) RF: 0 metformin 1,000 mg tablet 1,000 mg PO BID RF: 0 Discontinued prednisone 10 mg Tablet 10 mg PO .TAPER RF: 0 azithromycin [Zithromax Z-Ketan] 250 mg Tablet 250 mg PO UD RF: 0 aspirin [Aspir-81] 81 mg Tablet,Delayed Release (Dr/Ec) 162 mg PO UD RF: 0 glimepiride 4 mg Tablet 4 mg PO QAM RF: 0 Discharge Orders: Discharge Order (Routine); Ordered 07/28/20 Ordered By: Koby Bruno/Other Patient Handouts: Managing Type 2 Diabetes, How to Check Your Blood Sugar, Insulin How to Use and Where to Inject, 5 Steps for Eating Healthier, Diabetes: Meal Planning Admission Data Admit Date/Time: 07/17/20 12:53 Attending Provider: Koby Shaikh Admit Provider: Jac Macedo Primary Care Provider: Dimitri Lu I. Other Providers: Jac Macedo ; Vick Carlson ; Ganga Kramer Other Interventions: Discharge Summary Assessment (RN) Last Done: 07/28/20 15:43
== END 2020-07-28 19:07 | disposition home or self-care (01) | DRG 177 ==
LOC: ED 10:29 → SUATTDRO 12:53 → 2E 12:53

== ENCOUNTER 2024-08-23 18:19 | Inpatient (IN) ==
--- NOTE | 2024-08-23 19:08 | XRay Report ---
Clinical History: Chest pain Technique: A frontal view of the chest was obtained Comparison is made to the prior examination dated 07/26/2020 Findings: There are no definite pulmonary infiltrates. The heart size is within normal limits. No pleural effusion or pneumothorax is seen. There is a suspected left upper lobe nodule, slightly more prominent No fracture is noted. No foreign body is seen Impression: Suspected small left upper lobe nodule, likely benign but indeterminate in nature. Chest CT could be considered for further evaluation Electronically signed by Melo Leonardo 08-23-2024 7:07 PM
[2024-08-23 20:05] LABS: Basophils # (auto) 0.02 K/uL (0.00-0.20); Basophils % (auto) 0.3 %; Eosinophils # (auto) 0.01 K/uL (0.00-0.50); Eosinophils % (auto) 0.2 %; Hematocrit (blood only) 42.5 % (42.0-52.0); Hemoglobin 14.1 g/dl (14.0-18.0); Immature Granulocytes # (auto) 0.03 K/uL (0.01-0.20); Immature Granulocytes % (auto) 0.5 %; Lymphocytes # (auto) 1.73 K/uL (1.20-3.40); Mean Corpuscular Hemoglobin 32.3 pg (25.0-34.0); Mean Corpuscular Hgb Conc 33.2 g/dL (32.0-36.0); Mean Corpuscular Volume 97.5 fL (80.0-100.0); Mean Platelet Volume 9.3 fL (9.4-12.4); Monocytes % (auto) 13.9 %; Neutrophils # (auto) 3.18 K/uL (1.40-6.50); Neutrophils % (auto) 55.1 %; Platelet Count 212 K/uL (130-400); RDW Coefficient of Variation 14.1 % (11.5-14.5); RDW Standard Deviation 50.8 fL (36.4-46.3); Red Blood Count 4.36 M/uL (4.70-6.10); White Blood Count 5.77 K/ul (4.8-10.8)
[2024-08-23 20:18] LABS: Alanine Aminotransferase 44 U/L (7-52); Albumin Globulin Ratio 1.1 (0.9-2); Albumin Level 3.9 gm/dl (3.4-5.0); Alkaline Phosphatase 45 U/L (34-104); Anion Gap 7 (3-11); Aspartate Aminotransferase 57 U/L (13-39); BUN Creatinine Ratio 17.9 (10-20); Bilirubin,Total 0.5 mg/dl (0.2-1.0); Blood Urea Nitrogen 20 mg/dl (6-23); Calcium 8.6 mg/dl (8.6-10.3); Carbon Dioxide 29 mmol/L (21-32); Chloride 96 mmol/L (98-107); Globulin 3.7 gm/dl (2.5-4.0); Glucose 186 mg/dl (70-99(Fasting)); Potassium 4.3 mmol/L (3.5-5.1); Sodium 132 mmol/L (136-145); Total Protein 7.6 gm/dl (6.0-8.3)
[2024-08-23 20:23] LABS: Troponin I High Sensitivity 3.6 pg/ml (0-20)
[2024-08-23 20:35] LABS: INR 1.4 (0.9-1.1); Partial Thromboplastin Ratio 1.2; Partial Thromboplastin Time 32 Seconds (21-31); Prothrombin Time 14.5 Seconds (9.0-12.0)
[2024-08-23 21:01] LABS: Adenovirus PCR Not Detected (NotDetected); Bordetella parapertussis PCR Not Detected (NotDetected); Bordetella pertussis PCR Not Detected (NotDetected); Chlamydia pneumoniae PCR Not Detected (NotDetected); Coronavirus 229E PCR Not Detected (NotDetected); Coronavirus CoV-2 (COVID19)PCR Not Detected (NotDetected); Coronavirus HKU1 PCR Not Detected (NotDetected); Coronavirus NL63 PCR Not Detected (NotDetected); Coronavirus OC43PCR Not Detected (NotDetected); Human Metapneumovirus PCR Not Detected (NotDetected); Influenza A (H1 2009) PCR DETECTED (NotDetected); Influenza B PCR Not Detected (NotDetected); Mycoplasma pneumoniae PCR Not Detected (NotDetected); Parainfluenza Virus 1 PCR Not Detected (NotDetected); Parainfluenza Virus 2 PCR Not Detected (NotDetected); Parainfluenza Virus 3 PCR Not Detected (NotDetected); Parainfluenza Virus 4 PCR Not Detected (NotDetected); Respiratory Syncytial VirusPCR Not Detected (NotDetected); Rhinovirus/Enterovirus PCR Not Detected (NotDetected)
--- NOTE | 2024-08-23 22:15 | Emergency Department Note ---
Impression & Plan Influenza A, Hypoxia, Shortness of breath ED Provider Note CHIEF COMPLAINT: Shortness of breath, hypoxia HISTORY OF PRESENT ILLNESS: This 63-year-old male patient presents to the emergency department via private vehicle accompanied by family for evaluation of shortness of breath and hypoxia. Patient states that he has family visiting from [facility]. He states that they have all been sick with upper respiratory infection symptoms. On Friday, the patient developed the symptoms. He states that he has had coughing, congestion, fatigue, body aches. He states he has been taking Tylenol with minimal improvement. On Friday, the patient checked his oxygen saturation with a home pulse ox he has from when he had COVID-pneumonia with hypoxia several years ago and noticed his oxygen to be in the low 80%'s. The patient started home oxygen, and states he has a concentrator he used when he had COVID-pneumonia with hypoxia in 2019. He states that he has been using this throughout the weekend and today, had a telehealth appointment with his primary care provider who recommended he come to the emergency department for evaluation of his symptoms. The patient denies coughing up blood or sputum. He does report a history of PE associated with COVID-19 in 2019. He states that he does not have any other known lung disease. He does take warfarin daily which he took this evening. The patient states that his INR has been normal (between 2 and 3) when he last had it checked on 08/10. Patient denies any leg pain or swelling. He denies any abdominal pain. There is some chest pain only with coughing. Patient states he does feel winded and short of breath, particularly with any activity. Patient has not tried any home interventions for his symptoms. Pt. did not get a flu vaccine this year. History provided by: Patient and REVIEW OF SYSTEMS: A 10 system review of systems was performed with positives and pertinent negatives listed in the history of present illness. All other systems were reviewed and are negative. ALLERGIES: NKDA PHYSICAL EXAM: VITALS: Vitals are noted on the nurse's note and reviewed by myself. GENERAL: This is a 63-year-old male, in no acute distress, nondiaphoretic, well- developed well-nourished. SKIN: The skin was without rashes, erythema, edema, or bruising. There is no tenting of the skin. Capillary refill less than 2 seconds. HEAD: Normocephalic atraumatic. EYES: Conjunctivae without injection, sclerae without icterus. MOUTH: Mucous membranes moist. NECK: Supple without nuchal rigidity. No lymphadenopathy. Cervical spine is nontender. No JVD. HEART: Regular rate and rhythm without murmurs gallops or rubs. LUNGS: Diffuse wheezing throughout, left greater than right. No retractions or accessory muscle use. ABDOMEN: Positive bowel sounds x 4. Soft, nontender, without masses or organomegaly. Morton sign negative. No guarding or rebound tenderness. MUSCULOSKELETAL: No muscle atrophy, erythema, or edema noted. Full range of motion without joint tenderness in all extremities. No tenderness to palpation. Normal gait. Strength 5/5 throughout. NEURO: Patient was alert and oriented to person place and time. No focal neurological deficits. An order was placed for continuous hall monitor. The monitor showed a normal sinus rhythm at a ventricular rate of 73 bpm, per my interpretation. EKG was reviewed by myself and found to be normal sinus rhythm at a rate of 76 beats per minute and per my interpretation reveals no ST elevation or depression. No T wave inversion. No significant change when compared to EKG completed on 10/31/2021. Imaging as interpreted by myself and the radiologist revealed suspected left upper lobe nodule, with radiologist interpretation as above. I agree with the radiologist's findings as based upon my independent interpretation. EMERGENCY DEPARTMENT COURSE: The patient was seen and evaluated as above. Due to high-volume, high acuity in the emergency department, initial orders were placed by triage nursing staff. IV access had been obtained, labs were drawn. Respiratory bio fire testing was completed and was positive for influenza A. I did review labs. There was no leukocytosis or concerning anemia. No thrombocytopenia. Renal, hepatic function and electrolytes without significant abnormality. INR is not therapeutic at 1.4. When the patient was placed into her room, hall monitor was applied. Continuous pulse ox was applied. The patient was hypoxic with only minimal exertion in the low 80s. Per nursing staff, the patient dropped to 84% while getting into bed. He remained at only 89 to 90% on room air at rest. I evaluated the patient at this time. Patient does have diffuse wheezing. Patient was given a DuoNeb treatment. This did seem to help with the wheezing and the patient reports feeling slightly less short of breath. Unfortunately, he remained hypoxic at 89% on oxygen. Given the patient's persistent hypoxia, I did recommend inpatient care. The patient was agreeable. Patient remained on oxygen while in the emergency department. I discussed the case with Dr. Campos, [facility] hospitalist physician. He did agree to evaluate the patient for admission. The patient was medicated with p.o. Tamiflu. Please see hospitalist dictation regarding ongoing management and care of this patient. Case was discussed with the attending physician. This visit is during a period of high volume and high acuity in the emergency department. I attest that I have personally reviewed the patient medication list. I attest that I have reviewed the patient's blood pressure and it was found to be normal GCS: 15 In the evaluation and treatment of this patient the following differential diagnoses were entertained: Reactive airway disease, pneumonia, pneumothorax, COPD, CHF, infections, cardiac ischemia, pulmonary embolism, musculoskeletal, gastrointestinal, as well as other pathologies. The chart was completed utilizing [employer] Speech voice recognition software. Grammatical errors, random word insertions, pronoun errors, and incomplete sentences are an occasional consequence of this system due to software limitations, ambient noise, and hardware issues. Any formal questions or concerns about the content, text, or information contained within the body of this dictation should be directly addressed to the provider for clarification. Past Med/Surg History Problem List (Updated 08/24/24 @ 05:55 by Antonette Langston PA-C) Shortness of breath (Acute) Hypoxia (Acute) Influenza A (Acute) Afib Open wound of great toe Right diabetic wound Chronic respiratory failure Dyslipidemia Peripheral edema Pulmonary hypertension Cardiomegaly NAFLD (nonalcoholic fatty liver disease) Hepatic steatosis Respiratory failure (Acute) Pulmonary emboli (Acute) Resolved Hepatomegaly Pneumonia due to 2019 novel coronavirus (Acute) Diastolic dysfunction HTN (hypertension) DM type 2 (diabetes mellitus, type 2) Medical History Anticoagulated on Coumadin Chronic kidney disease Arthritis Acute hyperglycemia Prolonged QT interval Acute respiratory failure with hypoxia Pneumonia due to COVID-19 virus Mild tricuspid regurgitation Mild aortic valve regurgitation BPH (benign prostatic hyperplasia) Family History Father Diabetes Congenital kidney disease Mother Diabetes Denies family history of Coronary heart disease Alzheimer disease Dementia Heart disease Myocardial infarction Breast cancer Lung cancer Cancer Hypertension Stroke Social History Smoking Status: Never smoker Second Hand Exposure: No; Hx Alcohol Use: Yes Alcohol type: beer Hx Substance Use: No Preferred Language: Croatian Communication Ability: Effective Chief Pharmacist Required: No Beliefs That Will Affect Care: None marital status: Current Living Situation: Spouse and Family How many Children do You have: 5 Other Information That Helps Us Care for You: No Feels Safe at Home: Yes Safety Concerns: Feels Safe At This Time Diet: regular caffeine: Yes during the past year weight has: remained stable Physical Activity Frequency: 1-2 Times per Week Assistive Devices: Glasses and Oxygen - Continuous Allergies Allergies Allergy/AdvReac Type Severity Reaction Status Date / Time No Known Allergies Allergy Verified 08/24/24 00:20 Home Meds Home Medications Medication Instructions Recorded Confirmed insulin human U-100 NPH-regulr 70 unit subcut BID 12/09/23 08/24/24 70-30 mix 100 unit/mL subcutaneous susp (Novolin 70/30 U-100 Insulin) dofetilide 250 mcg capsule 250 mcg PO AMPM 08/24/24 08/24/24 metoprolol succinate 100 mg 100 mg PO BID 08/24/24 08/24/24 tablet,extended release 24 hr nitroglycerin 0.4 mg sublingual 0.4 mg sublingual UD PRN Chest Pain 08/24/24 08/24/24 tablet warfarin 5 mg tablet 2.5 - 5 mg PO DAILY 08/24/24 08/24/24 Previous Rx's Medication Instructions Recorded torsemide 20 mg tablet 20 mg PO DAILY #90 tabs 01/05/24 atorvastatin 40 mg tablet 40 mg PO DAILY #30 tabs 07/05/24 losartan 50 mg tablet 50 mg PO DAILY #90 tabs 07/09/24 tamsulosin 0.4 mg capsule (Flomax) 0.4 mg PO QAM #90 caps 07/09/24 Results & Data (ED) Vital Signs Vital Signs - 24 hr 08/23/24 18:22 08/23/24 21:40 08/23/24 21:46 Temperature 36.6 C Temperature Source Temporal Artery Scan Pulse Rate 76 71 Pulse Rate [Right Finger] Pulse Rhythm [Right Finger] Pulse Strength [Right Finger] Respiratory Rate 16 Respiratory Effort / Characteristics Respiratory Depth Respiratory Pattern Blood Pressure 128/79 Blood Pressure [Right Arm] Blood Pressure Mean 95 Blood Pressure Mean [Right Arm] Blood Pressure Position [Right Arm] Pulse Oximetry 93 Oxygen Delivery Method Room Air Nasal Cannula Oxygen Flow Rate 4 Sepsis Recent Fever Within 48 Hours No Sepsis New/Unexplained Change in Mental Status N/A Sepsis Action Taken by Nursing No Action Required 08/23/24 21:46 08/23/24 21:46 08/23/24 21:52 Temperature Temperature Source Pulse Rate 70 Pulse Rate [Right Finger] 71 73 Pulse Rhythm [Right Finger] Regular Regular Pulse Strength [Right Finger] Normal Respiratory Rate 22 22 23 Respiratory Effort / Characteristics Non-Labored Non-Labored Respiratory Depth Normal Normal Respiratory Pattern Regular Regular Blood Pressure Blood Pressure [Right Arm] 107/71 107/71 Blood Pressure Mean Blood Pressure Mean [Right Arm] 83 83 Blood Pressure Position [Right Arm] Lying Lying Pulse Oximetry 97 84 L 96 Oxygen Delivery Method Nasal Cannula Room Air Nasal Cannula Oxygen Flow Rate Sepsis Recent Fever Within 48 Hours Sepsis New/Unexplained Change in Mental Status Sepsis Action Taken by Nursing 08/23/24 22:25 08/23/24 23:00 08/24/24 01:00 Temperature Temperature Source Pulse Rate 72 Pulse Rate [Right Finger] 75 75 Pulse Rhythm [Right Finger] Regular Pulse Strength [Right Finger] Respiratory Rate 20 20 20 Respiratory Effort / Characteristics Non-Labored Non-Labored Respiratory Depth Normal Normal Respiratory Pattern Regular Regular Blood Pressure Blood Pressure [Right Arm] 103/66 109/65 Blood Pressure Mean Blood Pressure Mean [Right Arm] 78 79 Blood Pressure Position [Right Arm] Lying Lying Pulse Oximetry 92 95 92 Oxygen Delivery Method Nasal Cannula Nasal Cannula Nasal Cannula Oxygen Flow Rate 4 4 4 Sepsis Recent Fever Within 48 Hours Sepsis New/Unexplained Change in Mental Status Sepsis Action Taken by Nursing Laboratory Data 08/23/24 19:35 08/23/24 19:35 Lab Results 08/23/24 Range/Units 19:35 WBC 5.77 (4.8-10.8) K/ul RBC 4.36 L (4.70-6.10) M/uL Hgb 14.1 (14.0-18.0) g/dl Hct 42.5 (42.0-52.0) % MCV 97.5 (80.0-100.0) fL MCH 32.3 (25.0-34.0) pg MCHC 33.2 (32.0-36.0) g/dL RDW Std Deviation 50.8 H (36.4-46.3) fL RDW Coeff of Angy 14.1 (11.5-14.5) % Plt Count 212 (130-400) K/uL MPV 9.3 L (9.4-12.4) fL Immature Gran % (Auto) 0.5 % Neut % (Auto) 55.1 % Lymph % (Auto) 30.0 % Milam % (Auto) 13.9 % Eos % (Auto) 0.2 % Baso % (Auto) 0.3 % Neut # (Auto) 3.18 (1.40-6.50) K/uL Lymph # (Auto) 1.73 (1.20-3.40) K/uL Milam # (Auto) 0.80 H (0.11-0.59) K/uL Eos # (Auto) 0.01 (0.00-0.50) K/uL Baso # (Auto) 0.02 (0.00-0.20) K/uL Immature Gran # (Auto) 0.03 (0.01-0.20) K/uL PT 14.5 H (9.0-12.0) Seconds INR 1.4 H (0.9-1.1) APTT 32 H (21-31) Seconds PTT Ratio 1.2 Sodium 132 L (136-145) mmol/L Potassium 4.3 (3.5-5.1) mmol/L Chloride 96 L (98-107) mmol/L Carbon Dioxide 29 (21-32) mmol/L Anion Gap 7 (3-11) BUN 20 (6-23) mg/dl Creatinine 1.12 (0.6-1.4) mg/dl Est Cr Clr Drug Dosing Not Reportable eGFR 72.90 BUN/Creatinine Ratio 17.9 (10-20) Glucose 186 H (70-99(Fasting)) mg/dl Calcium 8.6 (8.6-10.3) mg/dl Total Bilirubin 0.5 (0.2-1.0) mg/dl AST 57 H (13-39) U/L ALT 44 (7-52) U/L Alkaline Phosphatase 45 (34-104) U/L Troponin I High Sens 3.6 (0-20) pg/ml Total Protein 7.6 (6.0-8.3) gm/dl Albumin 3.9 (3.4-5.0) gm/dl Globulin 3.7 (2.5-4.0) gm/dl Albumin/Globulin Ratio 1.1 (0.9-2) Nasal Influ A H1 2008 PCR DETECTED A (NotDetected) Adenovirus (PCR) Not Detected (NotDetected) B. pertussis DNA (PCR) Not Detected (NotDetected) B.parapertussis DNA PCR Not Detected (NotDetected) C. pneumoniae DNA (PCR) Not Detected (NotDetected) Coronavirus OC43 (PCR) Not Detected (NotDetected) Coronavirus HKU1 (PCR) Not Detected (NotDetected) Coronavirus 229E (PCR) Not Detected (NotDetected) SARS-CoV-2 (PCR) Not Detected (NotDetected) Coronavirus NL63 (PCR) Not Detected (NotDetected) Human Metapneumovir PCR Not Detected (NotDetected) Influenza Type B (PCR) Not Detected (NotDetected) M. pneumoniae (PCR) Not Detected (NotDetected) Parainfluenza 1 (PCR) Not Detected (NotDetected) Parainfluenza 2 (PCR) Not Detected (NotDetected) Parainfluenza 3 (PCR) Not Detected (NotDetected) Parainfluenza 4 (PCR) Not Detected (NotDetected) RSV (PCR) Not Detected (NotDetected) Entero/Rhino (PCR) Not Detected (NotDetected) Administered Medications Enoxaparin Sodium (Enoxaparin 150 Mg/Ml Syr) 150 mg SQ Q12H [facility] Stop: 09/23/24 02:59 Last Admin: 08/24/24 03:51 Dose: 150 mg Documented By: RIO Azithromycin 500 mg/ Sodium (Chloride) 255 mls @ 127.5 mls/hr IV Q24H [facility] Stop: 08/29/24 03:29 Last Admin: 08/24/24 03:51 Dose: 127.5 mls/hr Documented By: RIO Insulin Aspart (Insulin Aspart Per Unit Charge) 0 units SC ACHS [facility] Stop: 09/23/24 04:14 Last Admin: 08/24/24 04:24 Dose: 5 units Documented By: CHENG Co-signed By: DEQUAN Discontinued Medications Albuterol (Albut/Ipratrop 3mg/0.5mg Neb 3 Ml Vial) 3 ml NEB NOW STA; Protocol Stop: 08/23/24 21:57 Last Admin: 08/23/24 22:49 Dose: 3 ml Documented By: BLOSSOM Methylprednisolone (Methylprednisolone 125 Mg/2 Ml Vial) 125 mg IV NOW STA Stop: 08/24/24 01:13 Last Admin: 08/24/24 01:42 Dose: 125 mg Documented By: BLOSSOM Methylprednisolone (Methylprednisolone 10 Mg/Ml (For Ped Dose < 7mg)) 40 mg IV Q12H [facility] Stop: 09/23/24 01:14 Last Admin: 08/24/24 03:08 Dose: Not Given Documented By: CROW Oseltamivir Phosphate (Oseltamivir Phosphate 75 Mg Cap) 75 mg PO NOW STA; Protocol Stop: 08/24/24 00:16 Last Admin: 08/24/24 00:50 Dose: 75 mg Documented By: BLOSSOM Imaging Data Radiologist's Impression: Chest X-Ray 08/23/24 18:26 Clinical History: Chest pain Technique: A frontal view of the chest was obtained Comparison is made to the prior examination dated 07/26/2020 Findings: There are no definite pulmonary infiltrates. The heart size is within normal limits. No pleural effusion or pneumothorax is seen. There is a suspected left upper lobe nodule, slightly more prominent No fracture is noted. No foreign body is seen Impression: Suspected small left upper lobe nodule, likely benign but indeterminate in nature. Chest CT could be considered for further evaluation Electronically signed by Melo Leonardo 08-23-2024 7:07 PM Discharge Plan Visit Data Chief Complaint: Weakness Stated Complaint: LOW O2, WEAKNESS, NAUSEA ED Provider: Herlinda Scott ED Midlevel Provider: Antonette Langston Discharge Problem: Influenza A, Hypoxia, Shortness of breath Patient Disposition: Admitted As Inpatient Discharge Instructions Interventions: ED Discharge Assessment Last Done: 08/24/24 04:13
[2024-08-23] MEDS: ALBUT/IPRATROP 3MG/0.5MG NEB 3 ML VIAL NEB STA (22:49)
[2024-08-24] MEDS: OSELTAMIVIR PHOSPHATE 75 MG CAP PO STA (00:50)
[2024-08-24] MEDS ORDERED: ALBUT/IPRATROP 3MG/0.5MG NEB 3 ML VIAL NEB PRN (01:12)
--- NOTE | 2024-08-24 01:35 | History & Physical Report ---
Date of Service August 24, 2024 Assessment & Plan (1) Influenza A: (2) Acute respiratory failure with hypoxia: (3) Anticoagulated on Coumadin: (4) DM type 2 (diabetes mellitus, type 2): (5) Afib: Plan The patient is a 63-year-old male with a past medical history including atrial fibrillation, chronic respiratory failure, dyslipidemia, pulmonary hypertension, NAFLD, pulmonary emboli, hepatomegaly, hypertension, diabetes mellitus type 2, hepatomegaly, and diastolic dysfunction. He had been to a [facility] [employer] [place] for family visiting from [place], where there were number of sick people with upper respiratory type symptoms. He reports that 3 days ago he started to deve lop symptoms of a cough, congestion, shortness of breath, fatigue and checked his oxygen saturation at home found that he was in the low 80s. He started home oxygen with his concentrator, a leftover from [employer]-pneum[facility] in 2019. He had a telehealth appointment PCP today, and was advised to come to the emergency department for assessment. #Nasal influenza A, H1 2008/acute respiratory failure with hypoxia- Found pulse ox to be in the low 80% at home earlier in the day Titration goal for oxygen is 92% Give Solu-Medrol 125 mg IV now, and then 40 mg IV every 8 hours DuoNebs every 2 hours as needed Tamiflu 75 mg p.o. twice daily Mucinex 1200mg p.o. every 12 hours BioFire otherwise negative Atrial fibrillation/hypertension/relative hypotension Presently on warfarin 2.5-5 mg with an INR 1.4 Change warfarin to 5 mg daily, and bridge with Lovenox 1 mg/kg SQ every 12 hours Hold losartan, metoprolol and torsemide until blood pressure improves Diabetes mellitus- Consult pharmacy glycemic management to convert 70/30 insulin History of Present Illness Chief Complaint: The patient presents to the emergency department via private vehicle, due to concerns regarding progressively worsening shortness of breath, intermittently productive cough, and hypoxia. Primary Care Provider: Gilma Rodrigez DO The patient is a 63-year-old male with a past medical history including atrial fibrillation, chronic respiratory failure, dyslipidemia, pulmonary hypertension, NAFLD, pulmonary emboli, hepatomegaly, hypertension, diabetes mellitus type 2, hepatomegaly, and diastolic dysfunction. He had been to a family [employer] [place] for family visiting from [place], where there were number of sick people with upper respiratory type symptoms. He reports that 3 days ago he started to develop symptoms of a cough, congestion, shortness of breath, fatigue and checked his oxygen saturation at home found that he was in the low 80s. He started home oxygen with his concentrator, a leftover from [facility] in [facility]. He had a telehealth appointment PCP today, advised to come to the emergency department for assessment. Allergies Allergy/AdvReac Type Severity Reaction Status Date / Time No Known Allergies Allergy Verified 08/24/24 00:20 Home Medications Medication Instructions Recorded Confirmed Type insulin human U-100 NPH-regulr 70 unit subcut BID 12/09/23 08/24/24 History 70-30 mix 100 unit/mL subcutaneous susp (Novolin 70/30 U-100 Insulin) torsemide 20 mg tablet 20 mg PO DAILY #90 tabs 01/05/24 08/24/24 Rx atorvastatin 40 mg tablet 40 mg PO DAILY #30 tabs 07/05/24 08/24/24 Rx losartan 50 mg tablet 50 mg PO DAILY #90 tabs 07/09/24 08/24/24 Rx tamsulosin 0.4 mg capsule (Flomax) 0.4 mg PO QAM #90 caps 07/09/24 08/24/24 Rx dofetilide 250 mcg capsule 250 mcg PO AMPM 08/24/24 08/24/24 History metoprolol succinate 100 mg 100 mg PO BID 08/24/24 08/24/24 History tablet,extended release 24 hr nitroglycerin 0.4 mg sublingual 0.4 mg sublingual UD PRN Chest Pain 08/24/24 08/24/24 History tablet warfarin 5 mg tablet 2.5 - 5 mg PO DAILY 08/24/24 08/24/24 History Past Med/Surg History Problem List (Updated 08/24/24 @ 06:05 by Peterson Campos MD) Acute respiratory failure with hypoxia Anticoagulated on Coumadin Shortness of breath (Acute) Hypoxia (Acute) Influenza A (Acute) Afib Open wound of great toe Right diabetic wound Chronic respiratory failure Dyslipidemia Peripheral edema Pulmonary hypertension Cardiomegaly NAFLD (nonalcoholic fatty liver disease) Hepatic steatosis Respiratory failure (Acute) Pulmonary emboli (Acute) Resolved Hepatomegaly Pneumonia due to 2019 novel coronavirus (Acute) Diastolic dysfunction HTN (hypertension) DM type 2 (diabetes mellitus, type 2) Medical History Anticoagulated on Coumadin Chronic kidney disease Arthritis Acute hyperglycemia Prolonged QT interval Acute respiratory failure with hypoxia Pneumonia due to COVID-19 virus Mild tricuspid regurgitation Mild aortic valve regurgitation BPH (benign prostatic hyperplasia) Family History Father Diabetes Congenital kidney disease Mother Diabetes Denies family history of Coronary heart disease Alzheimer disease Dementia Heart disease Myocardial infarction Breast cancer Lung cancer Cancer Hypertension Stroke Social History Smoking Status: Never smoker Second Hand Exposure: No; Hx Alcohol Use: Yes Alcohol type: beer Hx Substance Use: No Preferred Language: Zimbabwean Communication Ability: Effective Welt Stitch Cleaner Required: No Beliefs That Will Affect Care: None marital status: Current Living Situation: Spouse and Family How many Children do You have: 5 Other Information That Helps Us Care for You: No Feels Safe at Home: Yes Safety Concerns: Feels Safe At This Time Diet: regular caffeine: Yes during the past year weight has: remained stable Physical Activity Frequency: 1-2 Times per Week Assistive Devices: Glasses and Oxygen - Continuous Review of Systems Review of Systems: The patient denies chest pain, palpitations, lower extremity swelling, sore throat, fevers, chills, sweats, nausea, vomiting, diarrhea , constipation, abdominal pain, pelvic pain, blood in urine or stool, dysuria, urinary frequency or urgency, memory loss, loss of consciousness, rash, abnormal bruising or bleeding, imbalance, focal weakness, numbness or tingling in arms or legs, generalized arthralgias or myalgias, back or neck pain, or night sweats. The review of systems is otherwise negative other than for that already noted above, and at least 10 systems have been reviewed. Physical Exam Physical Exam: The patient is awake, alert and oriented 3, well developed and well nourished, normocephalic and atraumatic, lying in bed and in no acute distress. HEENT--PERRL, EOMI, mucous membranes and oropharynx dry. Neck--supple. No JVD. No bruits. Thyroid normal, trachea midline, no adenopathy. Heart--normal S1 and S2. No murmurs, rubs or gallops. Lungs--coarse breath sounds bilaterally. No respiratory distress, no accessory muscle use. Abdomen--normal bowel sounds and soft. Nontender. Nondistended, no hernias or masses, no organomegaly. Extremities--no cyanosis or clubbing. No edema. Dermatologic--normal skin turgor, normal color, no abnormal lymph nodes, no rash. Neurologic--cranial nerves II through XII grossly intact. Rheumatologic--normal range of motion. Psychiatric--normal affect. Results & Data Results & Data Vital Signs (Past 12 Hours) Vital Signs Temp Pulse Pulse Resp BP BP Pulse Ox 08/23/24 23:00 75 20 103/66 95 08/23/24 22:25 72 20 92 08/23/24 21:52 73 23 107/71 96 08/23/24 21:46 70 22 84 L 08/23/24 21:46 71 22 107/71 97 08/23/24 21:46 08/23/24 21:40 71 08/23/24 18:22 36.6 C 76 16 128/79 93 O2 Del Method O2 Flow Rate 08/23/24 23:00 Nasal Cannula 4 08/23/24 22:25 Nasal Cannula 4 08/23/24 21:52 Nasal Cannula 08/23/24 21:46 Room Air 08/23/24 21:46 Nasal Cannula 08/23/24 21:46 Nasal Cannula 4 08/23/24 21:40 08/23/24 18:22 Room Air Laboratory Results Laboratory Results WBC 5.77 K/ul (4.8-10.8) 08/23/24 19:35 RBC 4.36 M/uL (4.70-6.10) L 08/23/24 19:35 Hgb 14.1 g/dl (14.0-18.0) 08/23/24 19:35 Hct 42.5 % (42.0-52.0) 08/23/24 19:35 MCV 97.5 fL (80.0-100.0) 08/23/24 19:35 MCH 32.3 pg (25.0-34.0) 08/23/24 19:35 MCHC 33.2 g/dL (32.0-36.0) 08/23/24 19:35 RDW Std Deviation 50.8 fL (36.4-46.3) H 08/23/24 19:35 RDW Coeff of Angy 14.1 % (11.5-14.5) 08/23/24 19:35 Plt Count 212 K/uL (130-400) 08/23/24 19:35 MPV 9.3 fL (9.4-12.4) L 08/23/24 19:35 Immature Gran % (Auto) 0.5 % 08/23/24 19:35 Neut % (Auto) 55.1 % 08/23/24 19:35 Lymph % (Auto) 30.0 % 08/23/24 19:35 Smyth % (Auto) 13.9 % 08/23/24 19:35 Eos % (Auto) 0.2 % 08/23/24 19:35 Baso % (Auto) 0.3 % 08/23/24 19:35 Neut # (Auto) 3.18 K/uL (1.40-6.50) 08/23/24 19:35 Lymph # (Auto) 1.73 K/uL (1.20-3.40) 08/23/24 19:35 Smyth # (Auto) 0.80 K/uL (0.11-0.59) H 08/23/24 19:35 Eos # (Auto) 0.01 K/uL (0.00-0.50) 08/23/24 19:35 Baso # (Auto) 0.02 K/uL (0.00-0.20) 08/23/24 19:35 Immature Gran # (Auto) 0.03 K/uL (0.01-0.20) 08/23/24 19:35 PT 14.5 Seconds (9.0-12.0) H 08/23/24 19:35 INR 1.4 (0.9-1.1) H 08/23/24 19:35 APTT 32 Seconds (21-31) H 08/23/24 19:35 PTT Ratio 1.2 08/23/24 19:35 Sodium 132 mmol/L (136-145) L 08/23/24 19:35 Potassium 4.3 mmol/L (3.5-5.1) 08/23/24 19:35 Chloride 96 mmol/L (98-107) L 08/23/24 19:35 Carbon Dioxide 29 mmol/L (21-32) 08/23/24 19:35 Anion Gap 7 (3-11) 08/23/24 19:35 BUN 20 mg/dl (6-23) 08/23/24 19:35 Creatinine 1.12 mg/dl (0.6-1.4) 08/23/24 19:35 Est Cr Clr Drug Dosing Not Reportable 08/23/24 19:35 eGFR 72.90 08/23/24 19:35 BUN/Creatinine Ratio 17.9 (10-20) 08/23/24 19:35 Glucose 186 mg/dl (70-99(Fasting)) H 08/23/24 19:35 POC Glucose 206 mg/dl (70-99) H 08/24/24 03:55 Calcium 8.6 mg/dl (8.6-10.3) 08/23/24 19:35 Total Bilirubin 0.5 mg/dl (0.2-1.0) 08/23/24 19:35 AST 57 U/L (13-39) H 08/23/24 19:35 ALT 44 U/L (7-52) 08/23/24 19:35 Alkaline Phosphatase 45 U/L (34-104) 08/23/24 19:35 Troponin I High Sens 3.6 pg/ml (0-20) 08/23/24 19:35 Total Protein 7.6 gm/dl (6.0-8.3) 08/23/24 19:35 Albumin 3.9 gm/dl (3.4-5.0) 08/23/24 19:35 Globulin 3.7 gm/dl (2.5-4.0) 08/23/24 19:35 Albumin/Globulin Ratio 1.1 (0.9-2) 08/23/24 19:35 Nasal Influ A H1 2009 PCR DETECTED (NotDetected) A 08/23/24 19:35 Adenovirus (PCR) Not Detected (NotDetected) 08/23/24 19:35 B. pertussis DNA (PCR) Not Detected (NotDetected) 08/23/24 19:35 B.parapertussis DNA PCR Not Detected (NotDetected) 08/23/24 19:35 C. pneumoniae DNA (PCR) Not Detected (NotDetected) 08/23/24 19:35 Coronavirus OC43 (PCR) Not Detected (NotDetected) 08/23/24 19:35 Coronavirus HKU1 (PCR) Not Detected (NotDetected) 08/23/24 19:35 Coronavirus 229E (PCR) Not Detected (NotDetected) 08/23/24 19:35 SARS-CoV-2 (PCR) Not Detected (NotDetected) 08/23/24 19:35 Coronavirus NL63 (PCR) Not Detected (NotDetected) 08/23/24 19:35 Human Metapneumovir PCR Not Detected (NotDetected) 08/23/24 19:35 Influenza Type B (PCR) Not Detected (NotDetected) 08/23/24 19:35 M. pneumoniae (PCR) Not Detected (NotDetected) 08/23/24 19:35 Parainfluenza 1 (PCR) Not Detected (NotDetected) 08/23/24 19:35 Parainfluenza 2 (PCR) Not Detected (NotDetected) 08/23/24 19:35 Parainfluenza 3 (PCR) Not Detected (NotDetected) 08/23/24 19:35 Parainfluenza 4 (PCR) Not Detected (NotDetected) 08/23/24 19:35 RSV (PCR) Not Detected (NotDetected) 08/23/24 19:35 Entero/Rhino (PCR) Not Detected (NotDetected) 08/23/24 19:35 Impressions Chest X-Ray 08/23/24 18:26 Clinical History: Chest pain Technique: A frontal view of the chest was obtained Comparison is made to the prior examination dated 07/26/2020 Findings: There are no definite pulmonary infiltrates. The heart size is within normal limits. No pleural effusion or pneumothorax is seen. There is a suspected left upper lobe nodule, slightly more prominent No fracture is noted. No foreign body is seen Impression: Suspected small left upper lobe nodule, likely benign but indeterminate in nature. Chest CT could be considered for further evaluation Electronically signed by Melo Leonardo 08-23-2024 7:07 PM Code Status & VTE Plan Code Status Full code VTE Prophylaxis Plan VTE Prophylaxis will be ordered: Yes PG Care Time/CCT Total # of Minutes Spent Total Time Spent with Patient: Total time spent is greater than 50% in coordination of care (as documented) at patient's floor/unit and/or counseling patient: Coding Level of Care Code 03642 INT INP/OBS CARE 3MIN Diagnoses Influenza A J10.1 Acute respiratory failure with hypoxia J96.01 Anticoagulated on Coumadin Z79.01 Type 2 diabetes mellitus without complication, with long-term current use of insulin E11.9; Z79.4 Diabetes mellitus termite technician insulin use: with termite technician use Diabetes mellitus complication status: without complication Afib I48.91 (4) DM type 2 (diabetes mellitus, type 2) Diabetes mellitus retirement insulin use: with termite technician use Diabetes mellitus complication status: without complication Qualified Code(s): E11.9 - Type 2 diabetes mellitus without complications; Z79.4 - exterminator helper (current) use of insulin
[2024-08-24] MEDS: methylPREDNISolone 125 MG/2 ML VIAL IV STA (01:42)
--- NOTE | 2024-08-24 02:15 | Emergency Department Note ---
ED Visit Note I was consulted by the Advanced Practice Provider, Antonette Langston PA-C. I performed a substantive portion of the visit. This includes aspects of: History: Patient is a 63-year-old male presenting with shortness of breath and hypoxia. Patient had family visiting him for [place] and stated that they were all sick with respiratory symptoms. He started having symptoms 5 days ago. He reports symptoms have progressively worsened over the last 5 days. He took his pulse ox at home 4 days ago and his oxygen level was in the low 80s. He has been using his home oxygen concentrator which she had from [employer] in 2019. He had an appointment with his primary care provider today and was recommended to come to the emergency department for further evaluation. He is on Coumadin daily. MDM: - Laboratory workup interpreted by myself showed normal WBC; INR 1.4; slight hyponatremia (Na 132); stable hemoglobin (14.1); elevated AST (57) - Viral respiratory panel positive for influenza A type H1. - CXR negative for acute pneumonia, per my interpretation. Radiology notes a potential left upper lobe nodule. - Patient given duoneb in ER. Given PO tamiflu and 125 mg IV solumedrol in ER. Patient is on a new 4 L nasal cannula with saturations of 93 to 94%. Will be admitted for acute hypoxia. - Patient admitted to inpatient hospitalist service for further evaluation and management. .
[2024-08-24] MEDS: methylPREDNISolone 10 mg/mL (For Ped Dose < 7mg) IV SCH (03:08)
[2024-08-24] MEDS ORDERED: ACETAMINOPHEN 325 MG TAB PO PRN (03:19)
[2024-08-24] MEDS ORDERED: CARBOHYDRATES FOR HYPOGLYCEMIA PO PRN (03:19)
[2024-08-24] MEDS ORDERED: GLUCOSE 40% GEL 15 GM TUBE PO PRN (03:19)
[2024-08-24] MEDS ORDERED: DEXTROSE 50% 50 ML SYRINGE IV PRN (03:19)
[2024-08-24] MEDS ORDERED: GLUCOSE 10 TAB/TUBE PO PRN (03:19)
[2024-08-24] MEDS ORDERED: GLUCAGON FOR INJ 1 MG VIAL SQ PRN (03:19)
[2024-08-24] MEDS ORDERED: NITROGLYCERIN SL 0.4 MG/TAB TAB SL PRN (03:19)
[2024-08-24] MEDS: ENOXAPARIN 150 MG/ML SYR SQ SCH ×2 (03:51→17:33)
[2024-08-24] MEDS: AZITHROMYCIN 500 MG in SODIUM CHLORIDE 0.9% 250 ML IV SCH (03:51)
[2024-08-24] MEDS ORDERED: PHARMACY GLYCEMIC MGMT CONSULT PRN (04:06)
[2024-08-24] MEDS: INSULIN ASPART PER UNIT CHARGE SC SCH ×2 (04:24→21:11)
[2024-08-24] MEDS: methylPREDNISolone 40 MG in SYRINGE 0 ML IV SCH (08:13)
[2024-08-24] MEDS: OSELTAMIVIR PHOSPHATE 75 MG CAP PO SCH (08:14)
[2024-08-24] MEDS: ATORVASTATIN 40 MG TAB PO SCH (08:14)
[2024-08-24] MEDS: DOFETILIDE 125 MCG CAPSULE PO SCH (08:14)
[2024-08-24] MEDS: TAMSULOSIN HCL 0.4 MG CAP PO SCH (08:14)
[2024-08-24 08:16] LABS: Basophils # (auto) 0.01 K/uL (0.00-0.20); Basophils % (auto) 0.2 %; Hematocrit (blood only) 39.7 % (42.0-52.0); Hemoglobin 13.4 g/dl (14.0-18.0); Immature Granulocytes # (auto) 0.03 K/uL (0.01-0.20); Immature Granulocytes % (auto) 0.7 %; Lymphocytes # (auto) 1.55 K/uL (1.20-3.40); Lymphocytes % (auto) 34.3 %; Mean Corpuscular Hemoglobin 32.1 pg (25.0-34.0); Mean Corpuscular Hgb Conc 33.8 g/dL (32.0-36.0); Mean Platelet Volume 9.1 fL (9.4-12.4); Monocytes # (auto) 0.17 K/uL (0.11-0.59); Monocytes % (auto) 3.8 %; Neutrophils # (auto) 2.76 K/uL (1.40-6.50); Platelet Count 203 K/uL (130-400); RDW Coefficient of Variation 14.1 % (11.5-14.5); RDW Standard Deviation 49.1 fL (36.4-46.3); Red Blood Count 4.18 M/uL (4.70-6.10); White Blood Count 4.52 K/ul (4.8-10.8)
[2024-08-24 08:33] LABS: Albumin Level 3.5 gm/dl (3.4-5.0); BUN Creatinine Ratio 25.3 (10-20); Calcium 8.1 mg/dl (8.6-10.3); Creatinine Clr Calc Pharmacy 99.5 ml/min; Magnesium 2.2 mg/dl (1.7-2.4); Phosphorus 4.6 mg/dl (2.5-4.9); Potassium 4.4 mmol/L (3.5-5.1)
[2024-08-24] MEDS ORDERED: AZITHROMYCIN 500 MG VIAL IV SCH (09:00)
[2024-08-24] MEDS ORDERED: methylPREDNISolone 10 mg/mL (For Ped Dose < 7mg) IV SCH (09:00)
[2024-08-24 09:01] LABS: INR 1.4 (0.9-1.1); Partial Thromboplastin Ratio 1.4; Partial Thromboplastin Time 37 Seconds (21-31); Prothrombin Time 14.6 Seconds (9.0-12.0)
[2024-08-24] MEDS: guaiFENesin 600 MG TABCR PO SCH (09:28)
[2024-08-24] MEDS: LANTUS PER UNIT CHARGE SC SCH ×2 (09:28→17:30)
--- NOTE | 2024-08-24 10:08 | Electrocardiogram Report ---
Test Reason : Blood Pressure : */* mmHG Vent. Rate : 76 BPM Atrial Rate : 76 BPM P-R Int : 178 ms QRS Dur : 76 ms QT Int : 372 ms P-R-T Axes : 13 -11 9 degrees QTcB Int : 418 ms Normal sinus rhythm Inferior infarct , age undetermined Abnormal ECG When compared with ECG of 19-Jul-2020 10:12, Inferior infarct is now Present Confirmed by Randy Morel ([id number]) on 08/24/2024 10:08:05 AM Referred By: Confirmed By: Randy Morel
--- NOTE | 2024-08-24 10:19 | Pharmacy Report ---
Pharmacy Glycemic Short Note 2 - Date of Service August 24, 2024 - Glycemic Short BSG Results (Last 24 hours): 08/23/24 08/24/24 08/24/24 19:35 03:55 07:49 Glucose 186 H POC Glucose 206 H 283 H 08/24/24 07:50 Glucose 253 H POC Glucose OUTPATIENT ANTIDIABETIC REGIMEN: * Novolin 70/30 70 units SQ BID * A1c pending ASSESSMENT: * Paul is a 63 yo T2DM who presented with cough, congestion and shortness of breath. Tested positive for influenza A H1. Started on IV steroids, methylprednisolone 40 mg IV q12 hours. BSGs of 206 and 283 mg/dL thus far today. * Patient is on Novolin 70/30 as an outpatient. Due to difficulty managing/adjusting pre-mixed insulins while inpatient especially while receiving high dose IV steroids, will convert patient to Lantus. Can later convert to NPH if desired for easier transition back to home regimen on discharge. * Severe hyperglycemia at lunch, BSG 353 mg/dL. Treated with one time dose of IV regular insulin + tightened Novolog parameters. * Overnight checks with coverage until better glycemic control obtained. PLAN FOR INPATIENT GLYCEMIC CONTROL: * Basal insulin * Lantus 40 units SQ this am, then 40-50 units SQ BID * Bolus insulin * NovoLog per scale ACHS or Q6hrs while NPO * Goal Range: Low 110 mg/dL - High 140 mg/dL * Correction Factor: 10 mg/dL/unit * Nutritional / Prandial insulin per carb ratio of 1 unit per 4 grams CHO consumed
[2024-08-24] MEDS: INSULIN HUMAN REGULAR PER UNIT 8 UNITS in SYRINGE 7.92 ML IV ONE ×2 (12:35→15:40)
[2024-08-24] MEDS: WARFARIN SOD 5 MG TAB PO SCH (17:30)
[2024-08-24] MEDS ORDERED: MODERATE STRESS LEVEL ONE (19:18)
[2024-08-24] MEDS ORDERED: STAT IV Infusion **Titration per Protocol STA (19:18)
[2024-08-24] MEDS ORDERED: INSULIN PROTOCOL GOAL RANGE ONE (19:18)
[2024-08-24] MEDS: INSULIN REGULAR 250 UNITS in SODIUM CHLORIDE 0.9% 247.5 ML IV SCH (19:57)
[2024-08-25] MEDS ORDERED: INSULIN ASPART PER UNIT CHARGE SC SCH
[2024-08-25 07:22] LABS: Basophils # (auto) 0.02 K/uL (0.00-0.20); Basophils % (auto) 0.2 %; Hematocrit (blood only) 44.4 % (42.0-52.0); Hemoglobin 15.1 g/dl (14.0-18.0); Immature Granulocytes # (auto) 0.05 K/uL (0.01-0.20); Immature Granulocytes % (auto) 0.5 %; Lymphocytes # (auto) 2.89 K/uL (1.20-3.40); Lymphocytes % (auto) 30.7 %; Mean Corpuscular Hemoglobin 32.5 pg (25.0-34.0); Mean Corpuscular Volume 95.5 fL (80.0-100.0); Mean Platelet Volume 9.5 fL (9.4-12.4); Monocytes # (auto) 0.79 K/uL (0.11-0.59); Monocytes % (auto) 8.4 %; Neutrophils # (auto) 5.65 K/uL (1.40-6.50); Neutrophils % (auto) 60.2 %; Platelet Count 252 K/uL (130-400); RDW Coefficient of Variation 13.5 % (11.5-14.5); RDW Standard Deviation 47.6 fL (36.4-46.3); Red Blood Count 4.65 M/uL (4.70-6.10)
[2024-08-25 07:34] LABS: Albumin Level 3.9 gm/dl (3.4-5.0); BUN Creatinine Ratio 35.1 (10-20); Calcium 8.8 mg/dl (8.6-10.3); Creatinine Clr Calc Pharmacy 86.4 ml/min; Magnesium 2.5 mg/dl (1.7-2.4); Phosphorus 3.9 mg/dl (2.5-4.9); Potassium 4.2 mmol/L (3.5-5.1)
[2024-08-25 07:48] LABS: INR 1.6 (0.9-1.1); Partial Thromboplastin Ratio 1.4; Partial Thromboplastin Time 37 Seconds (21-31); Prothrombin Time 16.5 Seconds (9.0-12.0)
[2024-08-25 08:25] LABS: Estimated Average Glucose 246 mg/dl; Hemoglobin A1C 10.2 % (4.5-5.6)
[2024-08-25] MEDS: LANTUS PER UNIT CHARGE SC SCH (08:46)
[2024-08-25] MEDS: AZITHROMYCIN 250 MG TAB PO SCH (08:47)
[2024-08-25] MEDS: INSULIN HUMAN NPH SC ONE (13:48)
--- NOTE | 2024-08-25 14:51 | Pharmacy Report ---
Pharmacy Glycemic Short Note 2 - Date of Service August 25, 2024 - Glycemic Short BSG Results (Last 24 hours): 08/24/24 08/24/24 08/24/24 14:38 16:12 16:12 Glucose POC Glucose 421 H* 414 H* 366 H* 08/24/24 08/24/24 08/24/24 18:47 21:06 21:07 Glucose POC Glucose 396 H* 324 H* 348 H* 08/24/24 08/24/24 08/25/24 22:15 23:06 00:05 Glucose POC Glucose 271 H 259 H 231 H 08/25/24 08/25/24 08/25/24 02:01 04:06 05:11 Glucose POC Glucose 210 H 225 H 263 H 08/25/24 08/25/24 08/25/24 05:51 06:33 06:58 Glucose 235 H POC Glucose 230 H 276 H 08/25/24 08/25/24 08/25/24 08:16 09:21 09:23 Glucose POC Glucose 262 H 327 H* 320 H* 08/25/24 08/25/24 08/25/24 10:18 11:16 12:56 Glucose POC Glucose 333 H* 298 H 344 H* 08/25/24 13:42 Glucose POC Glucose 299 H OUTPATIENT ANTIDIABETIC REGIMEN: * Novolin 70/30 70 units SQ BID * A1c: 10.2% (08/25/24) ASSESSMENT: 08/25: * Paul received over 250 units of insulin total yesterday between basal, bolus and IV. * Severe hyperglycemia has persisted into today despite being given two IV insulin boluses last night and being started on an insulin drip. BSGs since 0600 today are as follows: [phone] mg/dL. * Currently, the patients insulin drip is running at 25 units/hr which provides significant risk to this patient. Will notify nursing to not exceed a rate of 30 units/hr on the insulin drip for patient safety reasons. Provider added 20 units of NPH at lunchtime which was approved but not sure that additional NPH will help given no improvement of BSGs on large doses of basal and insulin drip. Patient received 90 units of basal yesterday which I have increased significantly to 100 units BID today. Currently on a fixed carb ratio of 3 which I am planning on tightening at dinner time to 1.5. RN reports significant snacking yesterday but assured me that no snacking today and is following the T2DM diet ordered. Given A1c, patient is basal deficient but has never required the amount of insulin he is currently getting. * Patient is obviously at high risk for hypoglycemia. I am concerned about this and regimen may need to be significantly reduced quickly this evening should basal start to catch up or steroids be adjusted significantly. Patient continues on Solumedrol 40 mg IV BID, Tamiflu and Azithromycin. * Patient will be followed by second and third shift pharmacists this evening. 08/24: * Paul is a 63 yo T2DM who presented with cough, congestion and shortness of breath. Tested positive for influenza A H1. Started on IV steroids, methylprednisolone 40 mg IV q12 hours. BSGs of 206 and 283 mg/dL thus far today. * Patient is on Novolin 70/30 as an outpatient. Due to difficulty managing/adjusting pre-mixed insulins while inpatient especially while receiving high dose IV steroids, will convert patient to Lantus. Can later convert to NPH if desired for easier transition back to home regimen on discharge. * Severe hyperglycemia at lunch, BSG 353 mg/dL. Treated with one time dose of IV regular insulin + tightened Novolog parameters. * Overnight checks with coverage until better glycemic control obtained. PLAN FOR INPATIENT GLYCEMIC CONTROL: * Insulin drip for hyperglycemia * Goal range: 110-180 * Current rate: 25.3 units/hr * Do NOT exceed 30 units/hr * Call pharmacy at [phone] should BSG decrease by > 100 mg/dL in a 1 hour span while on drip * Basal insulin * Lantus 100 units SC BID * NPH 20 units x 1 given by provider today - will not be continued by pharmacy at this time * Bolus insulin - fixed carb ratio of 1.5 * * * *
--- NOTE | 2024-08-25 19:32 | Hospitalist Progress Note ---
Date of Service August 25, 2024 Assessment & Plan (1) Influenza A: (2) Acute respiratory failure with hypoxia: (3) Anticoagulated on Coumadin: (4) DM type 2 (diabetes mellitus, type 2): (5) Afib: Plan The patient is a 63-year-old male with a past medical history including atrial f ibrillation, chronic respiratory failure, dyslipidemia, pulmonary hypertension, NAFLD, pulmonary emboli, hepatomegaly, hypertension, diabetes mellitus type 2, hepatomegaly, and diastolic dysfunction. He had been to a family [facility] [place] for family visiting from [place], where there were number of sick people with upper respiratory type symptoms. He reports that 3 days ago he started to develop symptoms of a cough, congestion, shortness of breath, fatigue and checked his oxygen saturation at home found that he was in the low 80s. He started home oxygen with his concentrator, a leftover from [place]-pneumonia in 2019. He had a telehealth appointment PCP today, and was advised to come to the emergency department for assessment. #Nasal influenza A, H1 2009/acute respiratory failure with hypoxia- Found pulse ox to be in the low 80% at home but curreently on 1LPM via nasal canula, check ambulatory pulse ox on RA prior to discharge Titration goal for oxygen is 92% Give Solu-Medrol 125 mg IV now, and then 40 mg IV every 8 hours - change to PO prednisone for 5 days starting tomorrow, stop IV solumedrol DuoNebs every 2 hours as needed Tamiflu 75 mg p.o. twice daily Mucinex 1200mg p.o. every 12 hours BioFire otherwise negative Atrial fibrillation/hypertension/relative hypotension Presently on warfarin 2.5-5 mg with an INR 1.4 Change warfarin to 5 mg daily, and bridge with Lovenox 1 mg/kg SQ every 12 hours Hold losartan, metoprolol and torsemide until blood pressure improves Diabetes mellitus- Consult pharmacy glycemic management to convert 70/30 insulin Poor control due to steroids, stop IV solumedrol Admission and Anticipated Discharge Date Admission Date: August 24, 2024 Subjective feels much improved, no wheezing, fever or chills, eager to be discharged but poor glycemic control Physical Exam Physical Exam: The patient is awake, alert and oriented 3, well developed and well nourished, normocephalic and atraumatic, lying in bed and in no acute distress. HEENT--PERRL, EOMI, mucous membranes and oropharynx dry. Neck--supple. No JVD. No bruits. Thyroid normal, trachea midline, no adenopathy. Heart--normal S1 and S2. No murmurs, rubs or gallops. Lungs-- much improved air entry No respiratory distress, no accessory muscle use. Abdomen--normal bowel sounds and soft. Nontender. Nondistended, no hernias or masses, no organomegaly. Extremities--no cyanosis or clubbing. No edema. Dermatologic--normal skin turgor, normal color, no abnormal lymph nodes, no rash. Neurologic--cranial nerves II through XII grossly intact. Rheumatologic--normal range of motion. Psychiatric--normal affect. Results & Data Results & Data Vital Signs (Past 12 Hours) Vital Signs Temp Pulse Resp BP Pulse Ox O2 Del Method O2 Flow Rate 08/25/24 19:24 36.5 C 69 18 147/84 H 90 Room Air 08/25/24 15:00 36.7 C 88 18 134/85 93 Room Air 08/25/24 11:00 36.7 C 83 20 111/67 97 Nasal Cannula 1 08/25/24 10:23 Nasal Cannula 2 08/25/24 07:37 36.9 C 74 20 148/81 H 97 Room Air PG Care Time/CCT Total # of Minutes Spent Total Time Spent with Patient: Total time spent is greater than 50% in coordination of care (as documented) at patient's floor/unit and/or counseling patient: Coding Level of Care Code 74008 SUB INP/OBS CARE 2/35MIN Diagnoses Influenza A J10.1 Acute respiratory failure with hypoxia J96.01 Anticoagulated on Coumadin Z79.01 Type 2 diabetes mellitus without complication, with long-term current use of insulin E11.9; Z79.4 Diabetes mellitus mcc insulin use: with mcc use Diabetes mellitus complication status: without complication Afib I48.91 (4) DM type 2 (diabetes mellitus, type 2) Diabetes mellitus isolation washer insulin use: with mcc use Diabetes mellitus complication status: without complication Qualified Code(s): E11.9 - Type 2 diabetes mellitus without complications; Z79.4 - special needs caregiver (current) use of insulin
[2024-08-25] MEDS ORDERED: LANTUS PER UNIT CHARGE SC SCH (21:00)
[2024-08-25] MEDS: LANTUS PER UNIT CHARGE SC ONE (22:15)
[2024-08-26 06:32] LABS: Basophils # (auto) 0.01 K/uL (0.00-0.20); Basophils % (auto) 0.1 %; Hematocrit (blood only) 41.9 % (42.0-52.0); Hemoglobin 14.5 g/dl (14.0-18.0); Immature Granulocytes # (auto) 0.05 K/uL (0.01-0.20); Immature Granulocytes % (auto) 0.5 %; Lymphocytes % (auto) 32.4 %; Mean Corpuscular Hemoglobin 32.5 pg (25.0-34.0); Mean Corpuscular Hgb Conc 34.6 g/dL (32.0-36.0); Mean Corpuscular Volume 93.9 fL (80.0-100.0); Mean Platelet Volume 9.4 fL (9.4-12.4); Monocytes # (auto) 0.96 K/uL (0.11-0.59); Monocytes % (auto) 9.4 %; Neutrophils # (auto) 5.85 K/uL (1.40-6.50); Neutrophils % (auto) 57.6 %; Platelet Count 252 K/uL (130-400); RDW Coefficient of Variation 13.2 % (11.5-14.5); RDW Standard Deviation 45.4 fL (36.4-46.3); Red Blood Count 4.46 M/uL (4.70-6.10); White Blood Count 10.17 K/ul (4.8-10.8)
[2024-08-26 06:57] LABS: Albumin Level 3.6 gm/dl (3.4-5.0); BUN Creatinine Ratio 36.2 (10-20); Calcium 8.9 mg/dl (8.6-10.3); Creatinine Clr Calc Pharmacy 109.1 ml/min; INR 2.4 (0.9-1.1); Magnesium 2.4 mg/dl (1.7-2.4); Partial Thromboplastin Ratio 1.5; Partial Thromboplastin Time 40 Seconds (21-31); Phosphorus 4.2 mg/dl (2.5-4.9); Potassium 3.8 mmol/L (3.5-5.1)
[2024-08-26] MEDS: predniSONE 20 MG TAB PO SCH (08:15)
[2024-08-26] MEDS: LANTUS PER UNIT CHARGE SC ONE (08:43)
--- NOTE | 2024-08-26 13:56 | Pharmacy Report ---
Pharmacy Glycemic Short Note 2 - Date of Service August 26, 2024 - Glycemic Short BSG Results (Last 24 hours): 08/25/24 08/25/24 08/25/24 13:42 14:46 15:37 Glucose POC Glucose 299 H 301 H* 242 H 08/25/24 08/25/24 08/25/24 16:01 16:19 16:57 Glucose POC Glucose 219 H 200 H 204 H 08/25/24 08/25/24 08/25/24 18:00 20:48 22:02 Glucose POC Glucose 309 H* 383 H* 292 H 08/25/24 08/26/24 08/26/24 23:08 00:17 01:59 Glucose POC Glucose 228 H 207 H 156 H 08/26/24 08/26/24 08/26/24 03:26 04:18 05:31 Glucose 76 POC Glucose 117 H 101 H 08/26/24 08/26/24 08/26/24 06:25 07:05 08:17 Glucose POC Glucose 112 H 135 H 127 H 08/26/24 08/26/24 10:08 12:07 Glucose POC Glucose 152 H 177 H OUTPATIENT ANTIDIABETIC REGIMEN: * Novolin 70/30 70 units SQ BID * A1c: 10.2% (08/25/24) ASSESSMENT: 08/26 * Patient required a tremendous about of insulin yesterday. He received > 230 units via the insulin drip (ranged from 3.8-30 units/hr), 170 units of SQ basal insulin (150 units were Lantus and 20 units were NPH), and 56 units of SQ bolus insulin.--For a total of over 450 units of insulin. His BSGs still remained well above goal range all through yesterday. * He received methylprednisolone 40mg iv x 1 in the morning yesterday, then he was transitioned to prednisone 40mg po daily today. * Fasting BSG was 135mg/dL this morning. Since his BG was better controlled this morning, we will attempt to wean him off of the insulin drip. Lantus 100 units x 1 was given and RN instructed to stop the insulin drip after 6 hours (~1500). A lantus scale (50-100 units) depending on BSG was started this evening. * Bolus insulin with tight parameters was ordered to start at dinner time today. Overnight checks were added to help ensure that his BSG stays within the goal range. 08/25: * Paul received over 250 units of insulin total yesterday between basal, bolus and IV. * Severe hyperglycemia has persisted into today despite being given two IV insulin boluses last night and being started on an insulin drip. BSGs since 0600 today are as follows: [phone] mg/dL. * Currently, the patients insulin drip is running at 25 units/hr which provides significant risk to this patient. Will notify nursing to not exceed a rate of 30 units/hr on the insulin drip for patient safety reasons. Provider added 20 units of NPH at lunchtime which was approved but not sure that additional NPH will help given no improvement of BSGs on large doses of basal and insulin drip. Patient received 90 units of basal yesterday which I have increased significantly to 100 units BID today. Currently on a fixed carb ratio of 3 which I am planning on tightening at dinner time to 1.5. RN reports significant snacking yesterday but assured me that no snacking today and is following the T2DM diet ordered. Given A1c, patient is basal deficient but has never required the amount of insulin he is currently getting. * Patient is obviously at high risk for hypoglycemia. I am concerned about this and regimen may need to be significantly reduced quickly this evening should basal start to catch up or steroids be adjusted significantly. Patient continues on Solumedrol 40 mg IV BID, Tamiflu and Azithromycin. * Patient will be followed by second and third shift pharmacists this evening. 08/24: * Paul is a 63 yo T2DM who presented with cough, congestion and shortness of breath. Tested positive for influenza A H1. Started on IV steroids, methylprednisolone 40 mg IV q12 hours. BSGs of 206 and 283 mg/dL thus far today. * Patient is on Novolin 70/30 as an outpatient. Due to difficulty managing/adjusting pre-mixed insulins while inpatient especially while receiving high dose IV steroids, will convert patient to Lantus. Can later convert to NPH if desired for easier transition back to home regimen on discharge. * Severe hyperglycemia at lunch, BSG 353 mg/dL. Treated with one time dose of IV regular insulin + tightened Novolog parameters. * Overnight checks with coverage until better glycemic control obtained. PLAN FOR INPATIENT GLYCEMIC CONTROL: * Insulin drip for hyperglycemia * Goal range: 110-180 * Current rate: 3.6units/hr, to be stopped at 1500 today * Basal insulin * Lantus 100 units SC x 1 this morning, then scale for tonight (50 units for BSG < 180, 75 units for BSG 180-220, 100 units for BSG > 220) * Bolus insulin - * Novolog per scale ACHS or Q6 hours while NPO * Goal Range: Low 120 mg/dL - High 160 mg/dL * Correction Factor: 8 mg/dL/unit * Nutritional / Prandial insulin per carb ratio of 1 unit per 2 grams CHO consumed
--- NOTE | 2024-08-26 17:01 | Hospitalist Progress Note ---
Date of Service August 26, 2024 Assessment & Plan (1) Influenza A: (2) Acute respiratory failure with hypoxia: (3) Anticoagulated on Coumadin: (4) DM type 2 (diabetes mellitus, type 2): (5) Afib: Plan Paul is a 64-year-old male with a history of A-fib, chronic respiratory failure, hyperlipidemia, pulmonary hypertension, NAFLD, PE, hepatomegaly, pretension, DM 2, HFpEF who had several days of cough congestion shortness of breath and was admitted for acute respiratory failure due to flu A. Acute hypoxic respiratory failure due to flu A Has progressed and has been weaned back to room air, wheezing and respiratory status overall improved From a respiratory standpoint is stable for discharge home however unfortunately requires additional monitoring due to high insulin requirements overnight Continue Tamiflu/Mucinex/nebs as needed. Continue prednisone 5-day total cou rse A-fib/hypertension INR normalized, Lovenox discontinued and warfarin continued May resume metoprolol today, will hold losartan as patient is not hypertensive currently and had been hypotensive previously. Resume 08/27 if renal function and blood pressure remain stable DM2 Pharmacy following for glycemic management. - has been on a high dose insulin drip while on steroids up to 25 units/h and will not be able to be transitioned off this from the 6-hour overlap until at least the late afternoon. Is at high risk of both hyper and hypoglycemia with these adjustments and as such has been held for discharge until 08/27/2024 Has completed transition to subcu insulin. Received 100 units of glargine. Continue sliding scale with midnight and 4 AM correction adjustments if needed DVT prophylaxis: Anticoagulated, continue warfarin and now at therapeutic level Diet: DM2 Disposition: "Dispo discharge home 08/27 if glycemic control is added CODE STATUS: Full code Admission and Anticipated Discharge Date Admission Date: August 24, 2024 Subjective Seen at the bedside. Feels improved and is very hopeful to go home, unfortunately has been on a high dose insulin drip overnight up to 25 units an hour.Breathing comfortably on room air today, denies shortness of breath cough is improved and denies wheezing. No fever or chills overnight. Physical Exam Physical Exam: General: A&Ox3. NAD. Cooperative. HEENT: Atraumatic, normocephalic. Pulm: Diminished but grossly clear, no wheezing or rales. Symmetrical chest rise. No increased work of breathing. No respiratory distress. Cardiac: RRR, -mrg. Radial pulses intact and symmetrical. Abdominal: Belly distended without tenderness/rebound/guarding/rigidity BS present. Results & Data Results & Data Vital Signs (Past 12 Hours) Vital Signs Temp Pulse Resp BP Pulse Ox O2 Del Method 08/26/24 14:31 36.7 C 76 16 135/74 92 Room Air 08/26/24 10:09 36.5 C 78 18 121/75 94 Room Air 08/26/24 08:00 Room Air 08/26/24 07:00 36.5 C 61 16 133/77 94 Room Air PG Care Time/CCT Total # of Minutes Spent Total Time Spent with Patient: Total time spent is greater than 50% in coordination of care (as documented) at patient's floor/unit and/or counseling patient: Coding Level of Care Code 08918 SUB INP/OBS CARE 3/50MIN Diagnoses Influenza A J10.1 Acute respiratory failure with hypoxia J96.01 Anticoagulated on Coumadin Z79.01 Type 2 diabetes mellitus without complication, with long-term current use of insulin E11.9; Z79.4 Diabetes mellitus snf insulin use: with snf use Diabetes mellitus complication status: without complication Afib I48.91 (4) DM type 2 (diabetes mellitus, type 2) Diabetes mellitus [employer] insulin use: with [employer] use Diabetes mellitus complication status: without complication Qualified Code(s): E11.9 - Type 2 diabetes mellitus without complications; Z79.4 - [facility] (current) use of insulin
[2024-08-26] MEDS: INSULIN ASPART PER UNIT CHARGE SC SCH (17:42)
[2024-08-26 19:38] VITALS: RESP 18
[2024-08-26] MEDS ORDERED: LANTUS PER UNIT CHARGE SC SCH (21:00)
[2024-08-27] MEDS: INSULIN ASPART PER UNIT CHARGE SC SCH (00:11)
[2024-08-27 06:26] LABS: Basophils # (auto) 0.01 K/uL (0.00-0.20); Basophils % (auto) 0.1 %; Hemoglobin 14.1 g/dl (14.0-18.0); Immature Granulocytes # (auto) 0.03 K/uL (0.01-0.20); Immature Granulocytes % (auto) 0.3 %; Lymphocytes # (auto) 4.02 K/uL (1.20-3.40); Lymphocytes % (auto) 43.5 %; Mean Corpuscular Hemoglobin 31.9 pg (25.0-34.0); Mean Corpuscular Hgb Conc 33.6 g/dL (32.0-36.0); Mean Platelet Volume 9.4 fL (9.4-12.4); Monocytes # (auto) 0.83 K/uL (0.11-0.59); Neutrophils # (auto) 4.36 K/uL (1.40-6.50); Neutrophils % (auto) 47.1 %; Platelet Count 254 K/uL (130-400); RDW Coefficient of Variation 13.4 % (11.5-14.5); RDW Standard Deviation 46.6 fL (36.4-46.3); Red Blood Count 4.42 M/uL (4.70-6.10); White Blood Count 9.25 K/ul (4.8-10.8)
[2024-08-27 06:44] LABS: BUN Creatinine Ratio 28.1 (10-20); Calcium 8.5 mg/dl (8.6-10.3); Magnesium 2.3 mg/dl (1.7-2.4); Potassium 3.7 mmol/L (3.5-5.1)
[2024-08-27 07:00] LABS: Partial Thromboplastin Ratio 1.4; Partial Thromboplastin Time 38 Seconds (21-31); Prothrombin Time 29.3 Seconds (9.0-12.0)
[2024-08-27 07:24] VITALS: BP 157/90; PULSE 75; TEMP 97.5
--- NOTE | 2024-08-27 07:28 | Discharge Summary ---
Discharge Summary Date of Service August 27, 2024 Principal Dx & Hospital Course #1 = Principal Diagnosis (1) Influenza A: (2) Acute respiratory failure with hypoxia: (3) Anticoagulated on Coumadin: (4) DM type 2 (diabetes mellitus, type 2): (5) Afib: Isha Miller is a 64-year-old male with a history of A-fib, chronic respiratory failure, hyperlipidemia, pulmonary hypertension, NAFLD, PE, hepatomegaly, pretension, DM 2, HFpEF who had several days of cough congestion shortness of breath and was admitted for acute respiratory failure due to flu A. Due to as outpatient: 1. Routine follow-up with PCP. Follow-up on for DM. he is uncontrolled with a A1c of 10.2. He would benefit from switch to basal bolus, patient did not wish to pursue this at time of hospital admission. Also tends to snack and has both highs and lows which are somewhat expected with his 7030 regimen. If he is switched to a basal bolus regimen based on his hospital requirements would be reasonable to dose reduced slightly and start at 70 units of basal with CF 10, carb ratio 5 2. INR check within 1 week. A prescription was provided to patient with instructions to forward results to his PCP, or to call his PCP for recommendations if his INR was less than 2 or greater than 3. 3. Complete short course of prednisone 40 mg x5 days total 4. Complete Tamiflu course Hospital course summary: Acute hypoxic respiratory failure due to flu A Has progressed and has been weaned back to room air, wheezing and respiratory status overall improved Continue Tamiflu/Mucinex/nebs as needed. Continue prednisone 5-day total course A-fib/hypertension INR normalized, Lovenox discontinued and warfarin continued Metoprolol was transiently held for hypotension (along with losartan). Metoprolol was restarted with good tolerance, losartan was restarted for blood pressure day of discharge with good tolerance DM2 Pharmacy following for glycemic management. - has been on a high dose insulin drip while on steroids up to 25 units/h requiring a additional evening of observation for blood sugar stability. Did do well on glargine 100 units Has completed transition to subcu insulin. Received 100 units of glargine. Short acting over 24hrs about 100 units of short acting, 50% of basal dose. Patient was discharged to continue his home 70/30 regimen 70 units twice daily with instructions to follow-up close with his PCP for additional management as needed. He may benefit from a transition to basal bolus however did not wish for changes in insulin regimen at time of discharge. Admission HPI Per Admitting Provider The patient is a 63-year-old male with a past medical history including atrial fibrillation, chronic respiratory failure, dyslipidemia, pulmonary hypertension, NAFLD, pulmonary emboli, hepatomegaly, hypertension, diabetes mellitus type 2, hepatomegaly, and diastolic dysfunction. He had been to a family For [place] for family visiting from [place], where there were number of sick people with upper respiratory type symptoms. He reports that 3 days ago he started to develop symptoms of a cough, congestion, shortness of breath, fatigue and checked his oxygen saturation at home found that he was in the low 80s. He started home oxygen with his concentrator, a leftover from [facility] 2019. He had a telehealth appointment PCP today, advised to come to the emergency department for assessment. Discharge Exam General: A&Ox3. NAD. Cooperative. HEENT: Atraumatic, normocephalic. Pulm: CTAB A&P. -wheezes, -rales, -rhonchi. Symmetrical chest rise. No increased work of breathing. No respiratory distress. Cardiac: RRR, -mrg. Radial pulses intact and symmetrical. Abdominal: Nontender, nondistended, soft. BS present. Discharge Plan Discharge Items Patient Disposition: Home - Self-Care Reason For Visit: INFLUENZA H1, 2008, HYPOXIA Discharge Diagnosis: Acute hypoxic respiratory failure Activity: Resume your previous activity Non-emergency contact: Primary Care Provider Call non-emergency contact if: your symptoms worsen Follow-up/Referrals: Gilma Rodrigez DO [Primary Care Provider] - 09/02/24 11:00 am (Scheduled with THIEN Howell) Diet: Carb Consistent or DM2 Addtl Attending Provider Instructions: Follow up with primary care in 1 week Pending Studies at Discharge: No Stand-Alone Forms: My [address], Smoking Cessation Medications and DC Order Prescriptions: New oseltamivir [Tamiflu] 75 mg Capsule 75 mg PO BID Qty: 6 0RF prednisone 20 mg tablet 40 mg PO DAILY 5 Days Qty: 10 0RF albuterol sulfate [Ventolin HFA] 90 mcg/actuation HFA aerosol inhaler 2 inh inhalation Q6H PRN (Reason: shortness of breath or wheezing) Qty: 6.7 0RF Continued Novolin 70/30 U-100 Insulin 100 unit/mL (70-30) suspension 70 unit subcut BID atorvastatin 40 mg tablet 40 mg PO DAILY Qty: 30 2RF tamsulosin [Flomax] 0.4 mg capsule 0.4 mg PO QAM Qty: 90 3RF losartan 50 mg tablet 50 mg PO DAILY Qty: 90 3RF torsemide 20 mg tablet 20 mg PO DAILY Qty: 90 3RF metoprolol succinate 100 mg tablet extended release 24 hr 100 mg PO BID nitroglycerin 0.4 mg tablet, sublingual 0.4 mg sublingual UD PRN (Reason: Chest Pain) dofetilide 250 mcg capsule 250 mcg PO AMPM warfarin 5 mg tablet 2.5 - 5 mg PO DAILY Discharge Orders: Discharge Order (Routine); Ordered 08/27/24 Ordered By: Rodri Gregory Admission Data Admit Date/Time: 08/24/24 01:35 Attending Provider: Rodri Gregory Admit Provider: Peterson Campos Primary Care Provider: Gilma Rodrigez Other Providers: Peterson Campos Hospital Stay Data Consultations 08/24/24 00:17 ED Decision to Admit Stat Pending Results Patient Have Any Pending Studies at Discharge: No Discharge Instructions Given to Patient (Per Discharging Provider) Follow up with primary care in 1 week Total Time Total Time Spent Total Time Spent (In Minutes): Time spend day of discharge 40 minutes including direct patient care, documen tation, review of labs and images, and coordination of care. Coding Level of Care Code 26680 INP/OBS DISCH >30 MIN Diagnoses Influenza A J10.1 Acute respiratory failure with hypoxia J96.01 Anticoagulated on Coumadin Z79.01 Type 2 diabetes mellitus without complication, with long-term current use of insulin E11.9; Z79.4 Diabetes mellitus complication status: without complication Diabetes mellitus buttermaker helper insulin use: with buttermaker helper use Afib I48.91
[2024-08-27] MEDS: LANTUS PER UNIT CHARGE SC ONE (08:28)
[2024-08-27 09:20] VITALS: O2SAT 100
== END 2024-08-27 11:41 | disposition home or self-care (01) | DRG 193 ==
LOC: ED 18:19 → SUATTDRO 08-24 01:35 → EDINP 08-24 01:35 → 2S 08-24 03:23